=== PATIENT | female | born 1930 | race Caucasian/White ===

== ENCOUNTER 2017-10-21 12:04 | Emergency (ER) | payer MEDICARE, OTHER ==
[~2017-10-21] VITALS: Ht 154.9 cm; Wt 59.9 kg
--- OUTSIDE RECORDS SUMMARY | ~2017-10-21 | XMS | Clinical Summary ---
Demographics + + + | Address | [address] | | | [place] [address] | + + + | Home Phone | | + + + | Preferred Language | Unknown | + + + | Marital Status | | + + + | Samaritan Affiliation | Unknown | + + + | Race | White | + + + | Ethnic Group | Not or | + + + Author + + + | Author | [facility] | + + + | Organization | [facility] | + + + | Address | Unknown | + + + | Phone | Unavailable | + + + Support +------+ + + + +-------+ | Name | Relationship | Address | Phone | +------+ + + + +-------+ ECON | [address] | | [place] | [address] | +------+ + + + +-------+ Care Team Providers + +------+ + | Care Back Tender Fourdrinier Name | Role | Phone | + +------+ + PP | Unavailable | + +------+ + Source Comments UNIQUE is fully live on both [facility] Ambulatory and [facility] InPatient.[facility] Allergies + + + + + + [...] | + + + + + + Current Medications Not on file Active Problems Not on file Encounters +--------+ + + + + | Date | Type | Specialty | Care Team | Description | +--------+ + + + + | 07/25/ | Hospital | | | | | 2017 | Encounter | | | | +--------+ + + + + from Last 3 Months Social History + +-------+ +--------+------+ | Tobacco [...] on file | | + + + Plan of Treatment + + + + + | Health Maintenance | Due Date | Last Done | Comments | + + + + + | INFLUENZA VACCINE | | | | | (FLU SHOT) | 7 | | | + + + + + Results DERM PATHOLOGY (07/25/2017) + + + + | Component | Value | Ref Range | + + + + | DERMATOPATHOLOGY(WET | SOURCE OF SPECIMEN:A Rt. lateral cheek, | | | MNT) | shave biopsy CLINICAL | | | | DESCRIPTION:8.5 x 6 mm erythematous brown | | | | hyperkeratotic papule; r/o inflamed SK vs | | | | AKvs SCC. GROSS | | | | DESCRIPTION:Received in formalin is a | | | | specimen labeled Jb Hernandez:A: | | | | Specimen is labeled "R lateral cheek" and | | | | consists of an irregular shaveof papular | | | | patchy kvook-jhv-ebi-brown skin, [id number]. | | | | The surgical margin isinked blue; the | | | | tissue is trisected, and entirely submitted | | | | in cassette A1. MICROSCOPIC | | | | DESCRIPTION:There is an asymmetric and | | | | poorly circumscribed neoplasm characterized | | | | byparakeratosis overlying atypical | | | | keratinocytes at all levels of | | | | theepidermis. Most of the cells have | | | | pleomorphic, hyperchromatic nuclei, someare | | | | in mitosis, and most have eosinophilic | | | | cytoplasm. 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 NOTE: | | | | The squamous cell carcinoma in situ | | | | extends to the peripheral anddeep | | | | margins. [facility]:jb10 My | | | | electronic signature indicates that I have | | | | personally reviewed alldiagnostic slides, | | | | the gross and/or microscopic portion of | | | | thisreport and formulated the final | | | | diagnosis. Electronically signed | | | | by: Roscoe De Dios M.D.PathologistDate | | | | Completed: 07/28/2017 5:57PM | | | |Pathologist | | | |Date Completed: 07/28/2017 5:57PM | | + + + + + + + | Specimen | Performing Laboratory | + + + | | [facility] Luli CH5D [address] [facility] | | | [place] [address] | + + + from Last 3 Months
--- OUTSIDE RECORDS SUMMARY | ~2017-10-21 | XMS | Clinical Summary ---
Demographics + + + | Address | [address] | | | [place] [address] | + + + | Home Phone | | + + + | Preferred Language | Unknown | + + + | Marital Status | | + + + | Adventism Affiliation | Unknown | + + + | Race | White | + + + | Ethnic Group | Not or | + + + Author + + + | Author | [facility] | + + + | Organization | [facility] | + + + | Address | Unknown | + + + | Phone | Unavailable | + + + Support +------+ + + + +-------+ | Name | Relationship | Address | Phone | +------+ + + + +-------+ ECON | [address] | | [place] | [address] | +------+ + + + +-------+ Care Team Providers + +------+ + | Care Upsetter Name | Role | Phone | + +------+ + PP | Unavailable | + +------+ + Source Comments UNIQUE is fully live on both [facility] Ambulatory and [facility] InPatient.[facility] Allergies + + + + + + [...] shaveof papular | | | | patchy etzeo-ytx-yog-brown skin, [id number]. | | | | The surgical margin [...] peripheral anddeep | | | | margins. [facility]:jb10 My | | | | electronic [...] | | [facility] Luli CH5D [address] [facility] | | | [place] [address] | + + + from Last 3 Months
--- OUTSIDE RECORDS SUMMARY | ~2017-10-21 | XMS | Encounter Summary ---
Demographics + + + | Address | [address] | | | [place] [address] | + + + | Home Phone | | + + + | Preferred Language | Unknown | + + + | Marital Status | | + + + | Restorationist Affiliation | Unknown | + + + | Race | White | + + + | Ethnic Group | Not or | + + + Author + + + | Author | [facility] | + + + | Organization | [facility] | + + + | Address | Unknown | + + + | Phone | Unavailable | + + + Support +------+ + + + +-------+ | Name | Relationship | Address | Phone | +------+ + + + +-------+ ECON | [address] | | [place] | [address] | +------+ + + + +-------+ Care Team Providers + +------+ + | Care Air Operations Manager Name | Role | Phone | + +------+ + PCP | Unavailable | + +------+ + Encounter Details +--------+ + + + + | Date | Type | Department | Care Team | Description | +--------+ + + + + | 07/25/ | Hospital | Dermatopathology | | | | 2017 | Encounter | [address] | | | | | | Mail Code: CH16D | | | | | | [facility] | | | | | | and [facility], | | | | | | [place], [place] | | | | | | [address] | | | | | | [phone] | | | +--------+ + + + [...] on file | | + + + as of this encounter Plan of Treatment Not on fileas of this encounter Results DERM PATHOLOGY (07/25/2017) + [...] shaveof papular | | | | patchy baztn-lfd-znu-brown skin, [id number]. | | | | The surgical margin [...] peripheral anddeep | | | | margins. 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
--- OUTSIDE RECORDS SUMMARY | ~2017-10-21 | XMS | Encounter Summary ---
Demographics + + + | Address | [address] | | | [place] [address] | + + + | Home Phone | | + + + | Preferred Language | Unknown | + + + | Marital Status | | + + + | Rastafari Affiliation | Unknown | + + + | Race | White | + + + | Ethnic Group | Not or | + + + Author + + + | Author | [facility] | + + + | Organization | [facility] | + + + | Address | Unknown | + + + | Phone | Unavailable | + + + Support +------+ + + + +-------+ | Name | Relationship | Address | Phone | +------+ + + + +-------+ ECON | [address] | | [place] | [address] | +------+ + + + +-------+ Care Team Providers + +------+ + | Care Hem Inspector Name | Role | Phone | + +------+ + PCP | Unavailable | + +------+ + Encounter Details +--------+ + + + + | Date | Type | Department | Care Team | Description | +--------+ + + + + | 07/25/ | Hospital | Dermatopathology | | | | 2017 | Encounter | [address] | | | | | | Mail Code: CH16D | | | | | | [facility] | | | | | | and [facility], | | | | | | [place], [place] | | | | | | [address] | | | | | | [phone] | | | +--------+ + + + [...] shaveof papular | | | | patchy rjxcv-gve-ptv-brown skin, [id number]. | | | | The surgical margin [...] peripheral anddeep | | | | margins. 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
[~2017-10-21 12:04] MED LIST: ADVIL200 MG PO; ALBUTEROL SULF8.5 GM INH; ASPIRIN EC81 MG PO; AUGMENTIN 875-1 EACH PO; METOPROLOL SUCC25 MG PO; PREDNISONE20 MG PO; TRAMADOL HCL50 MG PO
== END 2017-10-21 12:41 | disposition home or self-care (01) ==
LOC: ED 12:04
DX: S00.83XA Contusion of other part of head, initial encounter (principal); I10 Essential (primary) hypertension; Z95.2 Presence of prosthetic heart valve; Z90.89 Acquired absence of other organs; Z90.49 Acquired absence of other specified parts of digestive tract; Z90.710 Acquired absence of both cervix and uterus; Z98.890 Other specified postprocedural states; Z88.8 Allergy status to other drugs, medicaments and biological substances; Z79.899 Other long term (current) drug therapy; W18.30XA Fall on same level, unspecified, initial encounter
CPT/HCPCS: 90471; 90715; 99282

== ENCOUNTER 2020-07-28 12:32 | Inpatient (IN) | payer MEDICARE, OTHER ==
[~2020-07-28] VITALS: Ht 154.9 cm; Wt 60.9 kg
--- OUTSIDE RECORDS SUMMARY | ~2020-07-28 | XMS | Encounter Summary ---
Demographics + + + | Address | [address] | | | [place] [address] | + + + | Home Phone | | + + + | Preferred Language | Unknown | + + + | Marital Status | | + + + | Latter Day Affiliation | Unknown | + + + | Race | White | + + + | Ethnic Group | Not or | + + + Author + + + | Author | [facility] | + + + | Organization | [facility] | + + + | Address | Unknown | + + + | Phone | Unavailable | + + + Support + + + + + | Name | Relationship | Address | Phone | + + + + + | Michael Ross | ECON | [address] | | | | | [place] | | | | | [address] | | + + + + + Care Team Providers + +------+ + | Care Crm Solution Architect Name | Role | Phone | + +------+ + PCP | Unavailable | + +------+ + Encounter Details +--------+ + + + + | Date | Type | Department | Care Team | Description | +--------+ + + + + | 07/23/ | Office | General Internal | Note, Outpatient | Progress Note | | 1996 | Visit-Trans | Medicine [address] | Clinic | | | | cribed | [address] | | | | | | Mailcode: L475 | | | | | | Outpatient Clinic | | | | | | [facility], [address] | | | | | | [place], [place] | | | | | | [address] | | | | | | [phone] | | | +--------+ + + + + Social History + +-------+ +--------+------+ | Tobacco Use | Types | Packs/Day | Years | Date | | | | | Used | | + +-------+ +--------+------+ | Never Assessed | | | | | + +-------+ +--------+------+ + + + | Sex Assigned at | Date Recorded | | | | + + + | Not on file | | + + + documented as of this encounter Progress Notes Interface, Machine Adjuster Helper In - 11/22/2006 3:04 AM [facility] DATE: 07/23/97 CHIEF COMPLAINT: Right carpal tunnel syndrome. HISTORY OF PRESENT ILLNESS: The patient is a 67-year-old woman who sustained a right distal radius fracture in April 1996. She underwent closed reduction and percutaneous pinning. She states that initially she had a marked deformity in her wrist, and since that time she has had diminished sensation in all of her fingers on her right hand. She complains of pain and numbness in her right hand. She states that this pain wakes her up, and then she shakes her hand to relieve it. PHYSICAL EXAMINATION: There is no marked deformity of the hand or wrist. She does have a positive Tinel's sign with paresthesias through the median nerve distribution. 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 ASSESSMENT AND PLAN: Right carpal tunnel syndrome. We are recommending right carpal tunnel release, and will place the patient on the surgical schedule. We have told her that she may cancel this prior to the date of her surgery. We have also offered a steroid injection, which the patient would prefer not to have at this time. Karmen Ayon M.D. Resident, Orthopedics /andrew A cc: Grover Rocha M.D., Hematology/Oncology FAX: [phone] Surgery Scheduling documented in this encounter Plan of Treatment Not on filedocumented as of this encounter Visit Diagnoses Not on filedocumented in this encounter"
--- OUTSIDE RECORDS SUMMARY | ~2020-07-28 | XMS | Encounter Summary ---
Demographics + + + | Address | [address] | | | [place] [address] | + + + | Home Phone | | + + + | Preferred Language | Unknown | + + + | Marital Status | | + + + | Islam Affiliation | Unknown | + + + | Race | White | + + + | Ethnic Group | Not or | + + + Author + + + | Author | [facility] | + + + | Organization | [facility] | + + + | Address | Unknown | + + + | Phone | Unavailable | + + + Support + + + + + | Name | Relationship | Address | Phone | + + + + + | Michael Ross | ECON | [address] | | | | | [place] | | | | | [address] | | + + + + + Care Team Providers + +------+ + | Care Freelance Court Stenographer Name | Role | Phone | + +------+ + PCP | Unavailable | + +------+ + Encounter Details +--------+ + + + + | Date | Type | Department | Care Team | Description | +--------+ + + + + | 01/09/ | Results | LAB CORE [address] | [facility], Faculty | | | 1998 | Only | [address] | [phone] | | | | | [place] | | | | | | [address] | | | | | | [phone] | | | +--------+ + + + [...] + + documented as of this encounter Plan of Treatment Not on filedocumented as of this encounter Procedures + +--------+ + + + | Procedure Name | Priori | Date/Time | Associated Diagnosis | Comments | | | ty | | | | + +--------+ + + + | SURGICAL PATHOLOGY | Routin | 01/09/1999 | | Results for this | | | e | | | procedure are in the | | | | | | results section. | + +--------+ + + + documented in this encounter Results SURGICAL PATHOLOGY (01/09/1999) + + + + + + | Component | Value | Ref Range | Performed | Pathologist | | | | | At | Signature | + + + + + + | SURGICAL | SOURCE OF SPECIMEN: SEE | | [facility] | | | PATHOLOGY | RESULTS | | DEPARTMENT | | | | Preliminary | | OF | | | | History:CLINICAL HISTORY | | PATHOLOGY | | | | Patient Age: 68 | | | | | | year old woman | | | | | | Patient History: | | | | | | Recurrent | | | | | | diverticulitis, now | | | | | | undergoing electivecolon | | | | | | resection. Suture cool | | | | | | proximal colon. | | | | | | GROSS DESCRIPTION | | | | | | Specimens Received: | | | | | | One in formalin | | | | | | #1 COLON: Received is a | | | | | | segment of colon | | | | | | measuring 17 x 5.5 x 4.0 | | | | | | cm.The colon has been | | | | | | previously | | | | | | longitudinally opened. | | | | | | Two linear staplelines | | | | | | are present on either | | | | | | end. A black suture is | | | | | | present on one | | | | | | end,designated as | | | | | | proximal. The staple | | | | | | line measures 3.0 cm | | | | | | proximally and3.5 cm | | | | | | distally. The specimen | | | | | | is serially | | | | | | longitudinally sectioned | | | | | | toreveal an area with | | | | | | multiple diverticula. | | | | | | This area involves 10 cm | | | | | | ofthe colon. This area | | | | | | is 6.5 cm from the | | | | | | proximal margin and 3.0 | | | | | | cm fromthe distal | | | | | | margin. The mucosal | | | | | | surface overlying both | | | | | | areas have normaltan | | | | | | folds without lesions or | | | | | | erythema. The bowel | | | | | | wall measures 0.7 cm | | | | | | inthickness on average | | | | | | with up to 2.0 cm in the | | | | | | area of the | | | | | | diverticula.None of the | | | | | | diverticula appear to be | | | | | | perforated. | | | | | | CASSETTE INDEX:A, | | | | | | proximal margin, | | | | | | transverse cut, ESB, | | | | | | distal margin, | | | | | | transverse cut, ESC-D, | | | | | | area with diverticula, | | | | | | RSE, normal-appearing | | | | | | colon, RSF, five | | | | | | suspected lymph nodes, | | | | | | RS All tissue | | | | | | sections taken are | | | | | | submitted for | | | | | | microscopic | | | | | | evaluation.WC/KO:tg | | | | | | FINAL | | | | | | DIAGNOSIS#1 COLON: | | | | | | COLON WITH | | | | | | DIVERTICULOSIS AND FIVE | | | | | | PERICOLIC LYMPH NODES | | | | | | WITH NO DIAGNOSTIC | | | | | | ABNORMALITY Case | | | | | | reviewed by: Amanda | | | | | | Sri KhalilCase | | | | | | staffed by: Jessica Stark | | | | | | SriT:01/13/99:dj | | | | | | My electronic signature | | | | | | indicates that I have | | | | | | personally reviewed | | | | | | alldiagnostic slides, | | | | | | the gross and/or | | | | | | microscopic portion of | | | | | | thisreport and | | | | | | formulated the final | | | | | | diagnosis. | | | | + + + + + + + + | Specimen | + + | Other | + + + + + + + | Performing | Address | City/State/Zipcode | Phone Number | | Organization | | | | + + + + + | [facility] | [address] | [place] [address] | | | PATHOLOGY | [address] | | | + + + + + documented in this encounter Visit Diagnoses Not on filedocumented in this encounter"
--- OUTSIDE RECORDS SUMMARY | ~2020-07-28 | XMS | Encounter Summary ---
Demographics + + + | Address | [address] | | | [place] [address] | + + + | Home Phone | | + + + | Preferred Language | Unknown | + + + | Marital Status | | + + + | Scientology Affiliation | Unknown | + + + | Race | White | + + + | Ethnic Group | Unknown | + + + Author + + + | Author | [facility] | | | and [place] | + + + | Organization | [facility] | | | and [place] | + + + | Address | Unknown | + + + | Phone | Unavailable | + + + Support + + + + + | Name | Relationship | Address | Phone | + + + + + | Stephanie Ross | ECON | [address] | | | | | [place] | | | | | [address] | | + + + + + Care Team Providers + +------+ + | Care Roller Die Cutting Machine Operator Name | Role | Phone | + +------+ + | Manuel Dent MD | PCP | | + +------+ + Reason for Visit + + + | Reason | Comments | + + + | Medication Refill | | + + + Encounter Details +--------+--------+ + + + | Date | Type | Department | Care Team | Description | +--------+--------+ + + + | 03/17/ | Refill | [facility] | Anai Jade | Medication Refill | | 2019 | | CARDIOLOGY JUN | [address] | | | | | [address] | [address] | | | | | [address] | [place] [address] | | | | | [place] | [phone] | | | | | [address] | | | | | | [phone] | | | +--------+--------+ + + + Social History + +-------+ +--------+------+ | Tobacco Use | Types | Packs/Day | Years | Date | | | | | Used | | + +-------+ +--------+------+ | Never Smoker | | | | | + +-------+ +--------+------+ + +---+---+---+ | Smokeless Tobacco: | | | | | Never Used | | | | + +---+---+---+ + + | Comments: extensive exposure to second hand smoke | + + + + + | Sex Assigned at | Date Recorded | | | | + + + | Not on file | | + + + documented as of this encounter Plan of Treatment Not on filedocumented as of this encounter Visit Diagnoses Not on filedocumented in this encounter"
--- OUTSIDE RECORDS SUMMARY | ~2020-07-28 | XMS | Encounter Summary ---
Demographics + + + | Address | [address] | | | [place] [address] | + + + | Home Phone | | + + + | Preferred Language | Unknown | + + + | Marital Status | | + + + | Presybeterian Affiliation | Unknown | + + + | Race | White | + + + | Ethnic Group | Unknown | + + + Author + + + | Author | [facility] | | | and [place] | + + + | Organization | [facility] | | | and [place] | + + + | Address | Unknown | + + + | Phone | Unavailable | + + + Support + + + + + | Name | Relationship | Address | Phone | + + + + + | Stephanie Ross | ECON | [address] | | | | | [place] | | | | | [address] | | + + + + + Care Team Providers + +------+ + | Care Dipper Fish Name | Role | Phone | + +------+ + PCP | Unavailable | + +------+ + Encounter Details +--------+ + + + + | Date | Type | Department | Care Team | Description | +--------+ + + + + | 03/14/ | [facility] | [facility] | Ernestina Love MD | Congestive Heart | | 2006 - | Encounter | [facility] | [address] | Failure ([facility]) | | | | CARE FLOOR [address] | [place] [address] | | | 03/27/ | | [address] | [phone] | | | 2005 | | [place], [place] | | | | | | [address] | | | | | | [phone] | | | +--------+ + + + [...] filedocumented as of this encounter Visit Diagnoses + + | Diagnosis | + + | Congestive heart failure, unspecified | + + documented in this encounter"
--- OUTSIDE RECORDS SUMMARY | ~2020-07-28 | XMS | Encounter Summary ---
Demographics + + + | Address | [address] | | | [place] [address] | + + + | Home Phone | | + + + | Preferred Language | Unknown | + + + | Marital Status | | + + + | Denominational Affiliation | Unknown | + + + | Race | White | + + + | Ethnic Group | Not or | + + + Author + + + | Author | [facility] | + + + | Organization | [facility] | + + + | Address | Unknown | + + + | Phone | Unavailable | + + + Support + + + + + | Name | Relationship | Address | Phone | + + + + + | Michael Ross | ECON | [address] | | | | | [place] | | | | | [address] | | + + + + + Care Team Providers + +------+ + | Care Change Consultant Name | Role | Phone | + +------+ + PCP | Unavailable | + +------+ + Encounter Details +--------+ + + + + | Date | Type | Department | Care Team | Description | +--------+ + + + + | 04/15/ | Office | [facility] | Note, Outpatient | Progress Note | | 1998 | Visit-Trans | MEDICINE | Clinic | | | | cribed | | | | +--------+ + + + [...] as of this encounter Progress Notes Interface, Library Media Specialist In - 09/24/2006 3:09 AM PSTCLINIC DATE: 04/15/1999 UROLOGY CLINIC PRE-PROCEDURE DIAGNOSIS: Urinary incontinence. POST-PROCEDURE DIAGNOSIS: Female stress urinary incontinence. 1. Normal uroflow. 2. Complete bladder emptying. 3. Normal detrusor sensation of filling and urge. 4. Normal detrusor compliance and capacity. 5. Stable detrusor during filling. 6. No vesicoureteral reflux seen. 7. Bladder neck funneling at rest. 8. Mild urethral hypermobility. 9. Intrinsic sphincter deficiency. 10. Normal voiding pressure. 11. Normal bladder outlet function during voiding. PROCEDURE: Calibrated uroflowmetry, calibrated cystometrography, pelvic floor electromyography, fluoroscopic cystourethrography, abdominal leak point pressure determination. INDICATIONS: Patient is a 69 year-old woman who came to our attention intraoperatively during a laparoscopically assisted pressure colectomy. At that time, an inadvertent bladder injury was recognized and we performed an open repair. She has recovered from the healing process and complains of stress urinary incontinence, which has actually been present for several years. She has a history of three vaginal deliveries and a hysterectomy. She does not report any previous bladder outlet surgery. FINDINGS: Patient has not been using any form of estrogen and the superficial vaginal tissues appear thinned, whitened and relatively atrophic. No overt fissures were identified. The urethral meatus appeared normal. The urethrovesical angle at rest was ten degrees positive, changing to 28 degrees positive with Valsalva effort. Patient had been able to void 74 ml with a maximum flow rate of 34 ml per second with residual less than 3 ml. During the initial filling, she reported the sensation of coolness upon filling almost immediately and the first distinct sensation of filling volume at 104 ml and an urge to void at 161 ml. Nonetheless, she was easily able to tolerate 400 ml with no significant intravesical pressure increase. When brought to an upright position, we could easily see mild descent of the pelvic floor associated with some funneling at the level of the bladder neck into the proximal urethra. Patient perceived this impending leakage. With Valsalva efforts, there was obvious opening of the bladder neck and proximal urethra with leakage. The abdominal leak point pressure was determined to be reproducible between 50 and 60 cm of water pressure. Voiding pressure fluctuated between 8 and 10 cm of water pressure maximum with normal opening of the bladder neck and proximal urethra and complete emptying. PROCEDURE: Patient was identified and brought to the Urodynamics Suite, where she was allowed to void in private into a calibrated uroflow commode. She was then placed in the table in the frogleg position and physical examination was completed before the genitalia were prepared with Betadine. A Q-tip test was performed and then the bladder was emptied with a #14 Burkinan urethral catheter. This was replaced with #7 Burkinan dual lumen urodynamics catheter. Electromyography pads were placed perianally and a rectal balloon catheter was inserted. After making appropriate connections and calibrations, the bladder was filled with Cystografin at a rate of 50 ml/minute. Findings are reported above. At 400 ml, the infusion was topped and the patient was brought to an upright position. Imaging was completed in AP and semioblique positions with and without Valsalva efforts. After recalibrating, the abdominal leak point pressure determination was carried out and finally a voiding pressure study was performed before all catheters and wires were removed. ASSESSMENT/PLAN: Patient tolerated this procedure well without any real complications. She will take Cipro, 250 mg, p.o., for two doses prophylactically. We recommended that she try an Estrace vaginal cream to prepare her tissues in the event that she chooses a surgical option. While she might be a candidate for (Contigen) injection, there is at least a mild degree of hypermobility and the patient's general health and condition may warrant a more permanent type of approach with a pubovaginal sling. I think this could be performed vaginally without any abdominal incision below the fascia. Sri Juarez/elmer cc: Mukund Del Rosario M.D. [facility] document ed in this encounter Plan of Treatment Not on filedocumented as of this encounter Visit Diagnoses Not on filedocumented in this encounter"
--- OUTSIDE RECORDS SUMMARY | ~2020-07-28 | XMS | Encounter Summary ---
Demographics + + + | Address | [address] | | | [place] [address] | + + + | Home Phone | | + + + | Preferred Language | Unknown | + + + | Marital Status | | + + + | Temple Affiliation | Unknown | + + + | Race | White | + + + | Ethnic Group | Unknown | + + + Author + + + | Author | [facility] | | | and [place] | + + + | Organization | [facility] | | | and [place] | + + + | Address | Unknown | + + + | Phone | Unavailable | + + + Support + + + + + | Name | Relationship | Address | Phone | + + + + + | Stephanie Ross | [place] | [address] | | | | | [place] | | | | | [address] | | + + + + + Care Team Providers + +------+ + | Care Managed Services Sales Consultant Name | Role | Phone | + +------+ + | Manuel Dent MD | PCP | | + +------+ + Encounter Details +--------+ + + + + | Date | Type | Department | Care Team | Description | +--------+ + + + + | 03/18/ | Imaging | [facility] | Provider, | | | 2019 | Exam | [facility] | MD Jenni [address] | | | | | IMAGING [address] | [address] | | | | | [address] | [place] [address] | | | | | [place] [address] | | | | | | [phone] | | | +--------+ + + + [...] | + +--------+ + + + | MRI LUMBAR SPINE WO | Routin | 11/30/2019 | | Results for this | | CONTRAST | e | 12:05 AM | | procedure are in the | | | | PST | | results section. | + +--------+ + + + documented in this encounter Results MRI Lumbar Spine wo Contrast (11/30/2019 12:05 AM PST) + + | Specimen | + + | | + + + + + | Narrative | Performed At | + + + | External films for comparison only | [facility] | | | | | No results will be in the chart. | | + + + + +---------+ + + | Performing | Address | City/State/Zipcode | Phone Number | | Organization | | | | + +---------+ + + | [facility] | | | | + +---------+ + + documented in this encounter Visit Diagnoses Not on filedocumented in this encounter"
--- OUTSIDE RECORDS SUMMARY | ~2020-07-28 | XMS | Encounter Summary ---
Demographics + + + | Address | [address] | | | [place] [address] | + + + | Home Phone | | + + + | Preferred Language | Unknown | + + + | Marital Status | | + + + | Orthodox Affiliation | Unknown | + + + | Race | White | + + + | Ethnic Group | Unknown | + + + Author + + + | Author | [facility] | | | and [place] | + + + | Organization | [facility] | | | and [place] | + + + | Address | Unknown | + + + | Phone | Unavailable | + + + Support + + + + + | Name | Relationship | Address | Phone | + + + + + | Stephanie Ross | [place] | [address] | | | | | [place] | | | | | [address] | | + + + + + Care Team Providers + +------+ + | Care Residential Concierge Name | Role | Phone | + [...] | | | [address] | [place] [address] | | | | | [place] [address] | | | | | | [phone] | | | +--------+ + + + [...] | + +--------+ + + + | XR HIP LEFT 2-3 | Routin | 11/26/2019 | | Results for this | | VIEWS | e | 12:00 AM | | procedure are in the | | | | PST | | results section. | + +--------+ + + + documented in this encounter Results XR Hip Left 2-3 Views (11/26/2019 12:00 AM PST) + + | Specimen | [...]
--- OUTSIDE RECORDS SUMMARY | ~2020-07-28 | XMS | Encounter Summary ---
Demographics + + + | Address | [address] | | | [place] [address] | + + + | Home Phone | | + + + | Preferred Language | Unknown | + + + | Marital Status | | + + + | Moravian Affiliation | Unknown | + + + | Race | White | + + + | Ethnic Group | Not or | + + + Author + + + | Author | [facility] | + + + | Organization | [facility] | + + + | Address | Unknown | + + + | Phone | Unavailable | + + + Support + + + + + | Name | Relationship | Address | Phone | + + + + + | Michael Ross | ECON | [address] | | | | | [place] | | | | | [address] | | + + + + + Care Team Providers + +------+ + | Care General Maintenance Helper Name | Role | Phone | + +------+ + PCP | Unavailable | + +------+ + Encounter Details +--------+ + + + + | Date | Type | Department | Care Team | Description | +--------+ + + + + | 08/29/ | Results | General Surgery | Mukund Del Rosario, | | | 1992 | Only | [address] | [address] | | | | | Loop Mailcode: | [address] | | | | | [id number] | [place], [place] | | | | | [address] | [address] | | | | | [place], [place] | [phone] | | | | | [address] | | | | | | [phone] | | | +--------+ + + + [...] | + +--------+ + + + | US AORTA | Routin | 09/22/1995 | | Results for this | | | e | 10:32 AM | | procedure are in the | | | | PST | | results section. | + +--------+ + + + | US ABDOMEN COMPLETE | Routin | 08/29/1995 | | Results for this | | | e | 4:09 PM | | procedure are in the | | | | PST | | results section. | + +--------+ + + + documented in this encounter Results US AORTA (09/22/1995 10:32 AM PST) + + + + + + | Component | Value | Ref Range | Performed | Pathologist | | | | | At | Signature | + + + + + + | US AORTA | Radiologist 1: ELLA, | | | | | | MATTHIAS Begum, | | | | | | MMandy-Radiologist 2: | | | | | | MATTHIAS JARAMILLO, | | | | | | M.DMACARENA, | | | | | | JB | | | | | | | | | | | | 23 42 | | | | | | 19LIMITED ABDOMINAL | | | | | | ULTRASOUND: | | | | | | [id number]: | | | | | | 09-22-95 CLINICAL | | | | | | INFORMATION: This is a | | | | | | 65-year-old female, who | | | | | | is recentlystatus post | | | | | | a laparoscopic | | | | | | cholecystectomy. At | | | | | | the time of | | | | | | operation,there was | | | | | | clinical suspicion of an | | | | | | abdominal aortic | | | | | | aneurysm. INDICATION: | | | | | | Rule out abdominal | | | | | | aortic aneurysm. | | | | | | FINDINGS: The | | | | | | abdominal aorta appears | | | | | | normal measuring 2.3 x | | | | | | 2.2 cmin the proximal | | | | | | aspect, 1.6 x 1.7 cm in | | | | | | the middle portion, and | | | | | | 1.2 x1.4 cm in | | | | | | transverse dimensions in | | | | | | the distal aspect. | | | | | | The right iliacartery | | | | | | measures approximately | | | | | | 8.9 mm in diameter. | | | | | | The left iliacartery | | | | | | measures 8.5 mm in | | | | | | diameter. There is a | | | | | | small amount | | | | | | ofcalcification along | | | | | | the vessel reyes. | | | | | | IMPRESSION: Normal | | | | | | appearing abdominal | | | | | | aorta and iliac arteries | | | | | | for age. There isno | | | | | | evidence for abdominal | | | | | | aortic aneurysm. END OF | | | | | | IMPRESSION: | | | | + + + + + + + + | Specimen | + + | | + + + +---------+ + + | Performing | Address | City/State/Zipcode | Phone Number | | Organization | | | | + +---------+ + + | [facility] DEPARTMENT OF | | | | | RADIOLOGY | | | | + +---------+ + + US ABDOMEN COMPLETE (08/29/1995 4:09 PM PST) + + + + + + | Component | Value | Ref Range | Performed | Pathologist | | | | | At | Signature | + + + + + + | US ABDOMEN | Radiologist 1: JULIETA, | | | | | COMPLETE | CAITLYN Rosales | | | | | | TK, | | | | | | JB | | | | | | | | | | | | [birth year] ABDOMINAL | | | | | | ULTRASOUND: 08/29/95 | | | | | | Dictated: 08/29/95 | | | | | | CLINICAL HISTORY: | | | | | | Abdominal pain. | | | | | | FINDINGS: The | | | | | | gallbladder is filled | | | | | | with sludge. It is | | | | | | notdistended. No wall | | | | | | thickening or | | | | | | pericholecystic fluid is | | | | | | seen. Thecommon bile | | | | | | duct measures 2 mm which | | | | | | is within normal | | | | | | limits. Theliver, | | | | | | pancreas, spleen, and | | | | | | kidneys are | | | | | | unremarkable. The | | | | | | rightkidney measures 9.9 | | | | | | cm and the left kidney | | | | | | 9.4 cm. A | | | | | | positivesonographic | | | | | | Dillard's sign was | | | | | | present. IMPRESSION: | | | | | | Sludge-filled | | | | | | gallbladder, without | | | | | | stones or biliary | | | | | | dilatation. END OF | | | | | | IMPRESSION: | | | | + + + + + + + + | Specimen | + + | | + + + +---------+ + + | Performing | Address | City/State/Zipcode | Phone Number | | Organization | | | | + +---------+ + + | [facility]MENT [facility] | | | | | RADIOLOGY | | | | + +---------+ + + documented in this encounter Visit Diagnoses Not on filedocumented in this encounter"
--- OUTSIDE RECORDS SUMMARY | ~2020-07-28 | XMS | Encounter Summary ---
Demographics + + + | Address | [address] | | | [place] [address] | + + + | Home Phone | | + + + | Preferred Language | Unknown | + + + | Marital Status | | + + + | Protestant Affiliation | Unknown | + + + | Race | White | + + + | Ethnic Group | Not or | + + + Author + + + | Author | [facility] | + + + | Organization | [facility] | + + + | Address | Unknown | + + + | Phone | Unavailable | + + + Support + + + + + | Name | Relationship | Address | Phone | + + + + + | Michael Ross | ECON | [address] | | | | | [place] | | | | | [address] | | + + + + + Care Team Providers + +------+ + | Care Pediatric Orthodontist Name | Role | Phone | + +------+ + PCP | Unavailable | + +------+ + Encounter Details +--------+ + + + + | Date | Type | Department | Care Team | Description | +--------+ + + + + | 01/08/ | Results | Registration [id number] | | | | 1998 | Only | [address] | | | | | | [place] Mailcode: [id number] | | | | | | [place], [place] | | | | | | [address] | | | | | | [phone] | | | +--------+ + + + [...] | + +--------+ + + + | CBC TESTS 2 | Routin | 01/12/1999 | | Results for this | | | e | 8:48 AM | | procedure are in the | | | | PDT | | results section. | + +--------+ + + + | CBC TESTS 2 | Routin | 01/11/1999 | | Results for this | | | e | 6:17 AM | | procedure are in the | | | | PDT | | results section. | + +--------+ + + + | CBC TESTS 2 | Routin | 01/10/1999 | | Results for this | | | e | 5:55 PM | | procedure are in the | | | | PST | | results section. | + +--------+ + + + | CHEMISTRY TESTS 4 | Routin | 01/10/1999 | | Results for this | | | e | 7:25 AM | | procedure are in the | | | | PST | | results section. | + +--------+ + + + | CBC TESTS 2 | Routin | 01/10/1999 | | Results for this | | | e | 7:25 AM | | procedure are in the | | | | PST | | results section. | + +--------+ + + + | CHEMISTRY TESTS 4 | Routin | 01/08/1999 | | Results for this | | | e | 2:15 PM | | procedure are in the | | | | PST | | results section. | + +--------+ + + + | CBC TESTS 2 | Routin | 01/08/1999 | | Results for this | | | e | 2:15 PM | | procedure are in the | | | | PST | | results section. | + +--------+ + + + | COAGULATION TESTS 2 | Routin | 01/08/1999 | | Results for this | | | e | 2:15 PM | | procedure are in the | | | | PST | | results section. | + +--------+ + + + documented in this encounter Results CBC TESTS 2 (01/12/1999 8:48 AM PDT) + + + + + + | Component | Value | Ref Range | Performed | Pathologist | | | | | At | Signature | + + + + + + | WHITE CELL | 7.2 | K/CU MM | | | | COUNT | | | | | + + + + + + | RED CELL | 3.27 (L) | M/CU MM | | | | COUNT | | | | | + + + + + + | HEMOGLOBIN | 10. (L) | GM/DL | | | + + + + + + | HEMATOCRIT | 29.6 (L) | % | | | + + + + + + | MCV | 90.6 | FL | | | + + + + + + | MCH | 30.5 | PG | | | + + + + + + | MCHC | 33.7 | GM/DL | | | + + + + + + | RDW | 12.5 | % | | | + + + + + + | PLATELET | 206. | K/CU MM | | | | COUNT | | | | | + + + + + + | MPV | 9.2 | FL | | | + + + + + + + + | Specimen | + + | | + + + + + + + | Performing | Address | City/State/Zipcode | Phone Number | | Organization | | | | + + + + + | [facility] | [address] | [place] [address] | | | PATHOLOGY | [address] | | | + + + + + CBC TESTS 2 (01/11/1999 6:17 AM PDT) + + + + + + | Component | Value | Ref Range | Performed | Pathologist | | | | | At | Signature | + + + + + + | WHITE CELL | 8.3 | K/CU MM | | | | COUNT | | | | | + + + + + + | RED CELL | 3.01 (L) | M/CU MM | | | | COUNT | | | | | + + + + + + | HEMOGLOBIN | 9.4 (L) | GM/DL | | | + + + + + + | HEMATOCRIT | 27. (L) | % | | | + + + + + + | MCV | 89.8 | FL | | | + + + + + + | MCH | 31.1 | PG | | | + + + + + + | MCHC | 34.6 (H) | GM/DL | | | + + + + + + | RDW | 12.6 | % | | | + + + + + + | PLATELET | 181. | K/CU MM | | | | COUNT | | | | | + + + + + + | MPV | 10.1 | FL | | | + + + + + + + + | Specimen | + + | | + + + + + + + | Performing | Address | City/State/Zipcode | Phone Number | | Organization | | | | + + + + + | [facility] | [address] | [place] [address] | | | PATHOLOGY | [address] | | | + + + + + CBC TESTS 2 (01/10/1999 5:55 PM PST) + + + + + + | Component | Value | Ref Range | Performed | Pathologist | | | | | At | Signature | + + + + + + | HEMATOCRIT | 27.3 (L) | % | | | + + + + + + + + | Specimen | + + | | + + + + + + + | Performing | Address | City/State/Zipcode | Phone Number | | Organization | | | | + + + + + | [facility] | [address] | [place] [address] | | | PATHOLOGY | [address] | | | + + + + + CBC TESTS 2 (01/10/1999 7:25 AM PST) + + + + + + | Component | Value | Ref Range | Performed | Pathologist | | | | | At | Signature | + + + + + + | WHITE CELL | 8.9 | K/CU MM | | | | COUNT | | | | | + + + + + + | RED CELL | 2.98 (L) | M/CU MM | | | | COUNT | | | | | + + + + + + | HEMOGLOBIN | 9.1 (L) | GM/DL | | | + + + + + + | HEMATOCRIT | 26.6 (L) | % | | | + + + + + + | MCV | 89.2 | [place] | | | + + + + + + | MCH | 30.7 | PG | | | + + + + + + | MCHC | 34.4 (H) | GM/DL | | | + + + + + + | RDW | 12.7 | % | | | + + + + + + | PLATELET | 192. | K/CU MM | | | | COUNT | | | | | + + + + + + | MPV | 9.8 | [place] | | | + + + + + + + + | Specimen | + + | | + + + + + + + | Performing | Address | City/State/Zipcode | Phone Number | | Organization | | | | + + + + + | [facility] | [address] | [place], [place] [address] | | | PATHOLOGY | [address] | | | + + + + + CHEMISTRY TESTS 4 (01/10/1999 7:25 AM PST) + + + + + + | Component | Value | Ref Range | Performed | Pathologist | | | | | At | Signature | + + + + + + | SODIUM, | 142. | mmol/l | | | | PLASMA | | | | | | (LAB) | | | | | + + + + + + | POTASSIUM, | 4.3 | mmol/l | | | | PLASMA | | | | | | (LAB) | | | | | + + + + + + | CHLORIDE, | 110. (H) | mmol/l | | | | PLASMA | | | | | | (LAB) | | | | | + + + + + + | TOTAL CO2, | 29. | mmol/l | | | | PLASMA | | | | | | (LAB) | | | | | + + + + + + | BUN, PLASMA | 6. | mg/dL | | | | (LAB) | | | | | + + + + + + | CREATININE | 0.8 | mg/dL | | | | PLASMA | | | | | | (LAB) | | | | | + + + + + + | GLUCOSE, | 104. | mg/dL | | | | PLASMA | | | | | | (LAB) | | | | | + + + + + + + + | Specimen | + + | | + + + + + + + | Performing | Address | City/State/Zipcode | Phone Number | | Organization | | | | + + + + + | [facility] | [address] | [place] [address] | | | PATHOLOGY | [address] | | | + + + + + COAGULATION TESTS 2 (01/08/1999 2:15 PM PST) + + + + + + | Component | Value | Ref Range | Performed | Pathologist | | | | | At | Signature | + + + + + + | INR | 1.01 | INR | | | + + + + + + | APTT | 32.8 | SECONDS | | | + + + + + + + + | Specimen | + + | | + + + + + + + | Performing | Address | City/State/Zipcode | Phone Number | | Organization | | | | + + + + + | [facility] | [address] | [place] [address] | | | PATHOLOGY | [address] | | | + + + + + CBC TESTS 2 (01/08/1999 2:15 PM PST) + + + + + + | Component | Value | Ref Range | Performed | Pathologist | | | | | At | Signature | + + + + + + | WHITE CELL | 7.4 | K/CU MM | | | | COUNT | | | | | + + + + + + | RED CELL | 3.88 | M/CU MM | | | | COUNT | | | | | + + + + + + | HEMOGLOBIN | 12. (L) | GM/DL | | | + + + + + + | HEMATOCRIT | 34.9 (L) | % | | | + + + + + + | MCV | 90. | FL | | | + + + + + + | MCH | 30.8 | PG | | | + + + + + + | MCHC | 34.2 (H) | GM/DL | | | + + + + + + | RDW | 12.8 | % | | | + + + + + + | PLATELET | 254. | K/CU MM | | | | COUNT | | | | | + + + + + + | MPV | 9.9 | FL | | | + + + + + + + + | Specimen | + + | | + + + + + + + | Performing | Address | City/State/Zipcode | Phone Number | | Organization | | | | + + + + + | [facility] | [address] | [place] [address] | | | PATHOLOGY | [address] | | | + + + + + CHEMISTRY TESTS 4 (01/08/1999 2:15 PM PST) + + + + + + | Component | Value | Ref Range | Performed | Pathologist | | | | | At | Signature | + + + + + + | SODIUM, | 143. | mmol/l | | | | PLASMA | | | | | | (LAB) | | | | | + + + + + + | POTASSIUM, | 4.3 | mmol/l | | | | PLASMA | | | | | | (LAB) | | | | | + + + + + + | CHLORIDE, | 102. | mmol/l | | | | PLASMA | | | | | | (LAB) | | | | | + + + + + + | TOTAL CO2, | 33. (H) | mmol/l | | | | PLASMA | | | | | | (LAB) | | | | | + + + + + + | BUN, PLASMA | 9. | mg/dL | | | | (LAB) | | | | | + + + + + + | CREATININE | 0.9 | mg/dL | | | | PLASMA | | | | | | (LAB) | | | | | + + + + + + | GLUCOSE, | 86. | mg/dL | | | | PLASMA | | | | | | (LAB) | | | | | + + + + + + + + | Specimen | + + | | + + + + + + + | Performing | Address | City/State/Zipcode | Phone Number | | Organization | | | | + + + + + | [facility] | [address] | [place] [address] | | | PATHOLOGY | [address] | | | + + + + + documented in this encounter Visit Diagnoses Not on filedocumented in this encounter"
--- OUTSIDE RECORDS SUMMARY | ~2020-07-28 | XMS | Encounter Summary ---
Demographics + + + | Address | [address] | | | [place] [address] | + + + | Home Phone [...] Author + + + | Author | [facility] | + + + | Organization | [facility] | + + + | Address | Unknown | + + + | Phone | Unavailable | + + + Support + + + + + | Name | Relationship | Address | Phone | + + + + + | Michael Ross | ECON | [address] | | | | | [place] | | | | | [address] | | + + + + + Care Team Providers + +------+ + | Care Typesetter Apprentice Name | Role | Phone | + [...] | | | | [id number] | [place], [place] | | | | | [address] | [address] | | | | | [place], [place] | [phone] | | | | | [address] | | | | | | [phone] | | | +--------+ + + + [...] ULTRASOUND: | | | | | | 05-18-79Paahtvhb: | | | | | | 09-22-95 [...] | | + +---------+ + + | [facility] DEPARTMENT OF | | | | | [...]
--- OUTSIDE RECORDS SUMMARY | ~2020-07-28 | XMS | Encounter Summary ---
Demographics + + + | Address | [address] | | | [place] [address] | + + + | Home Phone | | + + + | Preferred Language | Unknown | + + + | Marital Status | | + + + | Advent Affiliation | Unknown | + + + | Race | White | + + + | Ethnic Group | Not or | + + + Author + + + | Author | [facility] | + + + | Organization | [facility] | + + + | Address | Unknown | + + + | Phone | Unavailable | + + + Support + + + + + | Name | Relationship | Address | Phone | + + + + + | Michael Ross | ECON | [address] | | | | | [place] | | | | | [address] | | + + + + + Care Team Providers + +------+ + | Care Stonemason Name | Role | Phone | + +------+ + PCP | Unavailable | + +------+ + Encounter Details +--------+ + + + + | Date | Type | Department | Care Team | Description | +--------+ + + + + | 08/20/ | Results | Registration [id number] | | | | 1997 | Only | [address] | | | | | | [place] Mailcode: [id number] | | | | | | [place], [place] | | | | | | [address] | | | | | | [phone] | | | +--------+ + + + [...] | CHEMISTRY TESTS 4 | Routin | 11/05/1998 | | Results for this | | | e | 3:45 AM | | procedure are in the | | | | PST | | results section. | + +--------+ + + + | CHEMISTRY TESTS 4 | Routin | 10/16/1998 | | Results for this | | | e | 2:30 PM | | procedure are in the | | | | PST | | results section. | + +--------+ + + + | CBC TESTS 2 | Routin | 10/16/1998 | | Results for this | | | e | 2:30 PM | | procedure are in the | | | | PST | | results section. | + +--------+ + + + | CHEMISTRY TESTS 4 | Routin | 08/20/1998 | | Results for this | | | e | 2:42 PM | | procedure are in the | | | | PST | | results section. | + +--------+ + + + | CBC TESTS 2 | Routin | 08/20/1998 | | Results for this | | | e | 2:42 PM | | procedure are in the | | | | PST | | results section. | + +--------+ + + + | COAGULATION TESTS 2 | Routin | 08/20/1998 | | Results for this | | | e | 2:42 PM | | procedure are in the | | | | PST | | results section. | + +--------+ + + + documented in this encounter Results CHEMISTRY TESTS 4 (11/05/1998 3:45 AM PST) + + + + + + | Component | Value | Ref Range | Performed | Pathologist | | | | | At | Signature | + + + + + + | SODIUM, | 137. | mmol/l | | | | PLASMA | | | | | | (LAB) | | | | | + + + + + + | POTASSIUM, | 3.6 | mmol/l | | | | PLASMA | | | | | | (LAB) | | | | | + + + + + + | CHLORIDE, | 111. (H) | mmol/l | | | | PLASMA | | | | | | (LAB) | | | | | + + + + + + | TOTAL CO2, | 26. | mmol/l | | | | PLASMA | | | | | | (LAB) | | | | | + + + + + + | BUN, PLASMA | 15. | mg/dL | | | | (LAB) | | | | | + + + + + + | CREATININE | 0.7 | mg/dL | | | | PLASMA | | | | | | (LAB) | | | | | + + + + + + | GLUCOSE, | 98. | mg/dL | | | | PLASMA | | | | | | (LAB) | | | | | + + + + + + + + | Specimen | + + | | + + + + + + + | Performing | Address | City/State/Zipcode | Phone Number | | Organization | | | | + + + + + | [facility] | [address] | [place] [address] | | | PATHOLOGY | [address] | | | + + + + + CBC TESTS 2 (10/16/1998 2:30 PM PST) + + + + + + | Component | Value | Ref Range | Performed | Pathologist | | | | | At | Signature | + + + + + + | WHITE CELL | 7.6 | K/CU MM | | | | COUNT | | | | | + + + + + + | RED CELL | 3.68 (L) | M/CU MM | | | | COUNT | | | | | + + + + + + | HEMOGLOBIN | 11.8 (L) | GM/DL | | | + + + + + + | HEMATOCRIT | 34.3 (L) | % | | | + + + + + + | MCV | 93.2 | FL | | | + + + + + + | MCH | 32. | PG | | | + + + + + + | MCHC | 34.3 (H) | GM/DL | | | + + + + + + | RDW | 12.9 | % | | | + + + + + + | PLATELET | 267. | K/CU MM | | | | COUNT | | | | | + + + + + + | MPV | 9.3 | FL | | | + + + + + + | NEUTROPHIL | 53. | % | | | | % | | | | | + + + + + + | LYMPHOCYTE | 30. | % | | | | % | | | | | + + + + + + | MONOCYTE % | 11. (H) | % | | | + + + + + + | EOS % | 5. | % | | | + + + + + + | BASO % | 1. | % | | | + + + + + + | NEUTROPHIL | 4.1 | K/CU MM | | | | # | | | | | + + + + + + | LYMPHOCYTE | 2.3 | K/CU MM | | | | # | | | | | + + + + + + | MONOCYTE # | 0.8 (H) | K/CU MM | | | + + + + + + | EOS # | 0.4 | K/CU MM | | | + + + + + + | BASO # | 0. | K/CU MM | | | + + + + + + + + | Specimen | + + | | + + + + + + + | Performing | Address | City/State/Zipcode | Phone Number | | Organization | | | | + + + + + | [facility] | [address] | [place] [address] | | | PATHOLOGY | [address] | | | + + + + + CHEMISTRY TESTS 4 (10/16/1998 2:30 PM PST) + + + + + [...] + + + + | POTASSIUM, | 4.5 | mmol/l | | | | PLASMA | | | | | | (LAB) | | | | | + + + + + + | CHLORIDE, | 103. | mmol/l | | | | PLASMA | | | | | | (LAB) | | | | | + + + + + + | TOTAL CO2, | 29. | mmol/l | | | | PLASMA | | | | | | (LAB) | | | | | + + + + + + | BUN, PLASMA | 17. | mg/dL | | | | (LAB) | | | | | + + + + + + | CREATININE | 0.9 | mg/dL | | | | PLASMA | | | | | | (LAB) | | | | | + + + + + + | GLUCOSE, | 93. | mg/dL | | | | PLASMA | | | | | | (LAB) | | | | | + + + + + + | MAGNESIUM,P | 2. | mg/dL | | | | LASMA | | | | | + + + + + + + + | Specimen | + + | | + + + + + + + | Performing | Address | City/State/Zipcode | Phone Number | | Organization | | | | + + + + + | [facility] | [address] | [place] [address] | | | PATHOLOGY | [address] | | | + + + + + CHEMISTRY TESTS 4 (08/20/1998 2:42 PM PST) + + + + + [...] + + + + | POTASSIUM, | 4.7 | mmol/l | | | | PLASMA | | | | | | (LAB) | | | | | + + + + + + | CHLORIDE, | 106. | mmol/l | | | | PLASMA | | | | | | (LAB) | | | | | + + + + + + | TOTAL CO2, | 27. | mmol/l | | | | PLASMA | | | | | | (LAB) | | | | | + + + + + + | BUN, PLASMA | 12. | mg/dL | | | | (LAB) | | | | | + + + + + + | CREATININE | 0.9 | mg/dL | | | | PLASMA | | | | | | (LAB) | | | | | + + + + + + | GLUCOSE, | 87. | mg/dL | | | | PLASMA | | | | | | (LAB) | | | | | + + + + + + + + | Specimen | + + | | + + + + + + + | Performing | Address | City/State/Zipcode | Phone Number | | Organization | | | | + + + + + | [facility] | [address] | [place] [address] | | | PATHOLOGY | [address] | | | + + + + + COAGULATION TESTS 2 (08/20/1998 2:42 PM PST) + + + + + + | Component | Value | Ref Range | Performed | Pathologist | | | | | At | Signature | + + + + + + | INR | 1.01 | INR | | | + + + + + + | APTT | 32.2 | SECONDS | | | + + + + + + + + | Specimen | + + | | + + + + + + + | Performing | Address | City/State/Zipcode | Phone Number | | Organization | | | | + + + + + | [facility] | [address] | [place] [address] | | | PATHOLOGY | [address] | | | + + + + + CBC TESTS 2 (08/20/1998 2:42 PM PST) + + + + + + | Component | Value | Ref Range | Performed | Pathologist | | | | | At | Signature | + + + + + + | WHITE CELL | 7.8 | K/CU MM | | | | COUNT | | | | | + + + + + + | RED CELL | 4.01 | M/CU MM | | | | COUNT | | | | | + + + + + + | HEMOGLOBIN | 12.5 | GM/DL | | | + + + + + + | HEMATOCRIT | 36.9 (L) | % | | | + + + + + + | MCV | 92.1 | FL | | | + + + + + + | MCH | 31.1 | PG | | | + + + + + + | MCHC | 33.8 | GM/DL | | | + + + + + + | RDW | 13. | % | | | + + + + + + | PLATELET | 265. | K/CU MM | | | | [...] | + + + + + | [facility] | [address] | [place] [address] | | | PATHOLOGY | [address] | | | + + + + + documented in this encounter Visit Diagnoses Not on filedocumented in this encounter"
--- OUTSIDE RECORDS SUMMARY | ~2020-07-28 | XMS | Encounter Summary ---
Demographics + + + | Address | [address] | | | [place] [address] | + + + | Home Phone | | + + + | Preferred Language | Unknown | + + + | Marital Status | | + + + | Druze Affiliation | Unknown | + + + | Race | White | + + + | Ethnic Group | Not or | + + + Author + + + | Organization | Unknown | + + + | Address | Unknown | + + + | Phone | Unavailable | + + + Support + + + + + | Name | Relationship | Address | Phone | + + + + + | Michael Ross | [place] | [address] | | | | | [place] | | | | | [address] | | + + + + + Care Team Providers + +------+ + | Care Claims Specialist Name | Role | Phone | + +------+ + PCP | Unavailable | + +------+ + Encounter Details +--------+ + + + + | Date | Type | Department | Care Team | Description | +--------+ + + + + | 01/19/ | Results | | Nicholas Fleming | | | 1998 | Only | | [address] | | | | | | [address] | | | | | | [place] [address] | | | | | | [phone] | | | | | | | | +--------+ + + [...] | + +--------+ + + + | CYSTOGRAM, | Routin | 01/19/1999 | | Results for this | | RETROGRADE | e | 1:30 PM | | procedure are in the | | | | PDT | | results section. | + +--------+ + + + documented in this encounter Results CYSTOGRAM, RETROGRADE (01/19/1999 1:30 PM PDT) + + + + + + | Component | Value | Ref Range | Performed | Pathologist | | | | | At | Signature | + + + + + + | CYSTOGRAM, | Radiologist 1: ELLA, | | | | | RETROGRADE | MATTHIAS Begum | | | | | | M.DJustinoRETROGRADE | | | | | | CYSTOGRAM: 01/19/99. | | | | | | Dictated 02/07/99 | | | | | | COMPARISON: There are | | | | | | no prior studies | | | | | | available for | | | | | | comparison. FINDINGS: | | | | | | Fluoroscopy time is | | | | | | provided for Dr. Peterson | | | | | | Lonnie jangform the | | | | | | procedure. Initially, | | | | | | the patient's bladder is | | | | | | filledthrough an | | | | | | indwelling Caballero | | | | | | catheter with | | | | | | approximately 150 | | | | | | ccCystografin. The | | | | | | bladder is normal in | | | | | | configuration without | | | | | | evidenceof | | | | | | extravasation. The | | | | | | bladder is then emptied | | | | | | via the Caballero | | | | | | catheter.The bladder is | | | | | | then refilled through | | | | | | the indwelling Caballero | | | | | | catheter | | | | | | withapproximately 200 cc | | | | | | Cystografin, and the | | | | | | Caballero catheter is | | | | | | thenremoved by | | | | | | Lonnie. Again, the | | | | | | bladder is normal in | | | | | | configurationwithout | | | | | | evidence of | | | | | | extravasation. In the | | | | | | upright position, there | | | | | | isfunneling of the | | | | | | bladder neck and | | | | | | incontinence with | | | | | | Valsalva. Theurethra | | | | | | appears normal in course | | | | | | and caliber without | | | | | | filling defect | | | | | | onvoiding. No postvoid | | | | | | residual is | | | | | | demonstrated. | | | | | | IMPRESSION: 1. No | | | | | | evidence of | | | | | | extravasation. 2. | | | | | | Stress urinary | | | | | | incontinence. 3. | | | | | | Removal of the | | | | | | indwelling Caballero | | | | | | catheter by Nicholas Burgos | | | | | Sri Fleming A report | | | | | | will also be rendered by | | | | | | Dr. Fleming. END OF | | | | | [...]
--- OUTSIDE RECORDS SUMMARY | ~2020-07-28 | XMS | Encounter Summary ---
Demographics + + + | Address | [address] | | | [place] [address] | + + + | Home Phone | | + + + | Preferred Language | Unknown | + + + | Marital Status | | + + + | Buddhism Affiliation | Unknown | + + + | Race | White | + + + | Ethnic Group | Not or | + + + Author + + + | Author | [facility] | + + + | Organization | [facility] | + + + | Address | Unknown | + + + | Phone | Unavailable | + + + Support + + + + + | Name | Relationship | Address | Phone | + + + + + | Michael Ross | ECON | [address] | | | | | [place] | | | | | [address] | | + + + + + Care Team Providers + +------+ + | Care Pantograph Engraver Name | Role | Phone | + +------+ + PCP | Unavailable | + +------+ + Encounter Details +--------+ + + + + | Date | Type | Department | Care Team | Description | +--------+ + + + + | 01/09/ | Results | LAB CORE [address] | [facility], Faculty | | | 1998 | Only | [address] | [phone] | | | | | [place] | | | | | | [address] | | | | | | [phone] | | | +--------+ + + + [...] + + + + | [facility] | [address] | [place] [address] | | | PATHOLOGY | [address] | | | + + + + + documented in this encounter Visit Diagnoses Not on filedocumented in this encounter"
--- OUTSIDE RECORDS SUMMARY | ~2020-07-28 | XMS | Encounter Summary ---
Demographics + + + | Address | [address] | | | [place] [address] | + + + | Home Phone | | + + + | Preferred Language | Unknown | + + + | Marital Status | | + + + | Episcopalian Affiliation | Unknown | + + + | Race | White | + + + | Ethnic Group | Not or | + + + Author + + + | Author | [facility] | + + + | Organization | [facility] | + + + | Address | Unknown | + + + | Phone | Unavailable | + + + Support + + + + + | Name | Relationship | Address | Phone | + + + + + | Michael Ross | ECON | [address] | | | | | [place] | | | | | [address] | | + + + + + Care Team Providers + +------+ + | Care Public Works Manager Name | Role | Phone | + +------+ + PCP | Unavailable | + +------+ + Encounter Details +--------+ + + + + | Date | Type | Department | Care Team | Description | +--------+ + + + + | 07/12/ | Procedure - | UNKNOWN DEPARTMENT | Other, Faculty | EEG | | 1996 | | [address] [facility] | [phone] | | | | Transcribed | [address] | | | | | | [place], [place] | | | | | | [address] | | | +--------+ + + + [...] documented as of this encounter Progress Notes Other, Faculty - 07/12/1997 12:00 AM PDTAssociated Order(s): EEG ROUTINE CLINIC DATE: 07/11 Log #[id number] CLINICAL COMMENTS: This phgof-riqm-kbgq-old woman broke her distal radius in April 1996. She has had a burning sensation in glove distribution in the right hand since that time. The patient is an extremely poor historian and the extent of the sensory symptoms cannot be clarified. Neurologic examination is unremarkable. TEST DESCRIPTION: Motor nerve conduction studies demonstrate a mild delay in the right median distal motor latency as compared to the left distal motor latency. Amplitudes of the compound muscle action potentials in the median nerves bilaterally are preserved. The right ulnar motor nerve conduction studies and F- waves are normal. The right median F-wave is normal. Sensory nerve conduction studies in the median nerves are normal bilaterally, however, when one compared to the right median rjlw-wn-kibge sensory nerve conduction velocity with the right ulnar kocm-bc-fifog sensory nerve conduction study there is a significant slowing in the median nerve. Needle electromyography of the right abductor pollices brevis is normal. IMPRESSION: Mild right median mononeuropathy at the wrist consistent with the clinical diagnosis of mild right carpal tunnel syndrome. Dottie Guevara M.D. Clinical Instructor, Neurology Brianna Lubin M.D., F.R.C.P.C. Financing Analyst, Neurology FER/cf documented in this encou nter Plan of Treatment Not on filedocumented as of this encounter Procedures + +--------+ + + + | Procedure Name | Priori | Date/Time | Associated Diagnosis | Comments | | | ty | | | | + +--------+ + + + | EEG ROUTINE | | 07/12/1997 | | Results for this | | | | 12:00 AM | | procedure are in the | | | | PDT | | results section. | + +--------+ + + + documented in this encounter Results EEG ROUTINE (07/12/1997 12:00 AM PDT) + + | Procedure Note | + + | Other, Faculty - 07/12/1997 12:00 AM PDT CLINIC DATE: 07/11/97 | | Log #[id number] | | | | | | CLINICAL COMMENTS: | | | | This rfylc-fuco-mnyy-old woman broke her distal radius in April 1996. She | | has had a burning sensation in glove distribution in the right hand since | | that time. The patient is an extremely poor historian and the extent of the | | sensory symptoms cannot be clarified. Neurologic examination is | | unremarkable. | | | | | | TEST DESCRIPTION: | | | | Motor nerve conduction studies demonstrate a mild delay in the right median | | distal motor latency as compared to the left distal motor latency. | | Amplitudes of the compound muscle action potentials in the median nerves | | bilaterally are preserved. The right ulnar motor nerve conduction studies | | and F- waves are normal. The right median F-wave is normal. Sensory nerve | | conduction studies in the median nerves are normal bilaterally, however, | | when one compared to the right median gxjr-md-jzapt sensory nerve conduction | | velocity with the right ulnar mtup-ej-inyua sensory nerve conduction study | | there is a significant slowing in the median nerve. | | | | Needle electromyography of the right abductor pollices brevis is normal. | | | | | | IMPRESSION: | | | | Mild right median mononeuropathy at the wrist consistent with the clinical | | diagnosis of mild right carpal tunnel syndrome. | | | | | | | | | | Dottie Guevara M.D. | | Clinical Instructor, Neurology | | | | | | | | Brianna Lubin M.D., F.R.C.P.C. | | Financing Analyst, Neurology | | | | FER/cf | | | | | | | + + documented in this encounter Visit Diagnoses Not on filedocumented in this encounter"
--- OUTSIDE RECORDS SUMMARY | ~2020-07-28 | XMS | Encounter Summary ---
Demographics + + + | Address | [address] | | | [place] [address] | + + + | Home Phone | | + + + | Preferred Language | Unknown | + + + | Marital Status | | + + + | Rastafarian Affiliation | Unknown | + + + | Race | White | + + + | Ethnic Group | Not or | + + + Author + + + | Author | [facility] | + + + | Organization | [facility] | + + + | Address | Unknown | + + + | Phone | Unavailable | + + + Support + + + + + | Name | Relationship | Address | Phone | + + + + + | Michael Ross | ECON | [address] | | | | | [place] | | | | | [address] | | + + + + + Care Team Providers + +------+ + | Care Food Processing Chemist Name | Role | Phone | + [...] as of this encounter Progress Notes Interface, Senior Maintenance Technician In - 09/24/2006 3:09 AM PSTCLINIC DATE: [...] the bladder was emptied with a #14 Croatian urethral catheter. This was replaced with #7 Croatian dual lumen urodynamics catheter. Electromyography pads were [...]
--- OUTSIDE RECORDS SUMMARY | ~2020-07-28 | XMS | Encounter Summary ---
Demographics + + + | Address | [address] | | | [place] [address] | + + + | Home Phone | | + + + | Preferred Language | Unknown | + + + | Marital Status | | + + + | Zoroastrianism Affiliation | Unknown | + + + [...] + | Stephanie Ross | [place] | [address] | | | | | [place] | | | | | [address] | | + + + + + Care Team Providers + +------+ + | Care Step Finisher Name | Role | Phone | + +------+ + | Manuel Dent MD | PCP | | + +------+ + Encounter Details +--------+ + + + + | Date | Type | Department | Care Team | Description | +--------+ + + + + | 05/18/ | Orders Only | [facility] | Dmitriy Desai MD | | | 2010 | | [facility] | [address] | | | | | CLINICAL LABORATORY | [place], [place] | | | | | [address] | [id number] | | | | | [place], [place] | | | | | | [address] | | | | | | [phone] | | | +--------+ + + + [...] | + +--------+ + + + | MRSA NAAT | Routin | 05/18/2011 | | Results for this | | | e | 3:36 PM | | procedure are in the | | | | PDT | | results section. | + +--------+ + + + | MRSA NAAT | Routin | 05/18/2011 | | Results for this | | | e | 3:36 PM | | procedure are in the | | | | PDT | | results section. | + +--------+ + + + documented in this encounter Results MRSA NAAT (05/18/2011 3:36 PM PDT) + + | Specimen | + + | | + + + + + | Narrative | Performed At | + + + | [facility](NOSE) | EXTERNAL LAB | | Testing performed at [facility];[address] [place] [address];[place] [address] MRSA PCR | | | NEGATIVE Testing performed at | | | [address];[place] [address] | | + + + + +---------+ + + | Performing | Address | City/State/Zipcode | Phone Number | | Organization | | | | + +---------+ + + | EXTERNAL LAB | | | | + +---------+ + + MRSA NAAT (05/18/2011 3:36 PM PDT) + + | Specimen | + + | | + + + + + | Narrative | Performed At | + + + | [facility](NOSE) | EXTERNAL LAB | | Testing performed at [facility];[address] [place] [address];[place] [address] MRSA PCR | | | NEGATIVE Testing performed at | | | [address];[place] [address] | | + + + + +---------+ + + | Performing | Address | City/State/Zipcode | Phone Number | | Organization | | | | + +---------+ + + | EXTERNAL LAB | | | | + +---------+ + + documented in this encounter Visit Diagnoses Not on filedocumented in this encounter"
--- OUTSIDE RECORDS SUMMARY | ~2020-07-28 | XMS | Encounter Summary ---
Demographics + + + | Address | [address] | | | [place] [address] | + + + | Home Phone | | + + + | Preferred Language | Unknown | + + + | Marital Status | | + + + | Christianity Affiliation | Unknown | + + + | Race | White | + + + | Ethnic Group | Unknown | + + + Author + + + | Author | [facility] | | | and [place] | + + + | Organization | [facility] | | | and [place] | + + + | Address | Unknown | + + + | Phone | Unavailable | + + + Support + + + + + | Name | Relationship | Address | Phone | + + + + + | Stephanie Ross | [place] | [address] | | | | | [place] | | | | | [address] | | + + + + + Care Team Providers + +------+ + | Care Physiologist Name | Role | Phone | + [...] | | | [address] | [place] [address] | | | | | [place] [address] | | | | | | [phone] | | | +--------+ + + + [...]
--- OUTSIDE RECORDS SUMMARY | ~2020-07-28 | XMS | Encounter Summary ---
Demographics + + + | Address | [address] | | | [place] [address] | + + + | Home Phone | | + + + | Preferred Language | Unknown | + + + | Marital Status | | + + + | Orthodox Affiliation | Unknown | + + + | Race | White | + + + | Ethnic Group | Unknown | + + + Author + + + | Author | [facility] | | | and [place] | + + + | Organization | [facility] | | | and [place] | + + + | Address | Unknown | + + + | Phone | Unavailable | + + + Support + + + + + | Name | Relationship | Address | Phone | + + + + + | Stephanie Ross | ECON | [address] | | | | | [place] | | | | | [address] | | + + + + + Care Team Providers + +------+ + | Care Station Chief Name | Role | Phone | + +------+ + PCP | Unavailable | + +------+ + Encounter Details +--------+ + + + + | Date | Type | Department | Care Team | Description | +--------+ + + + + | 04/04/ | Hospital | [facility] | Conversion | Cor Athrscl-Uns | | 2006 | Encounter | CONVERSION [address] | [address], | Vessel | | | | [address] | Provider Unknown | | | | | [place], [place] | [phone] | | | | | [address] | | | | | | [phone] | | | +--------+ + + + [...] + | Diagnosis | + + | Coronary atherosclerosis of unspecified type of vessel, ouzinkie or graft | + + documented in this encounter"
--- OUTSIDE RECORDS SUMMARY | ~2020-07-28 | XMS | Encounter Summary ---
Demographics + + + | Address | [address] | | | [place] [address] | + + + | Home Phone | | + + + | Preferred Language | Unknown | + + + | Marital Status | | + + + | Mandaeism Affiliation | Unknown | + + + | Race | White | + + + | Ethnic Group | Unknown | + + + Author + + + | Author | [facility] | | | and [place] | + + + | Organization | [facility] | | | and [place] | + + + | Address | Unknown | + + + | Phone | Unavailable | + + + Support + + + + + | Name | Relationship | Address | Phone | + + + + + | Stephanie Ross | [place] | [address] | | | | | [place] | | | | | [address] | | + + + + + Care Team Providers + +------+ + | Care Insurance Coder Name | Role | Phone | + +------+ + | Manuel Dent MD | PCP | | + +------+ + Encounter Details +--------+ + + + + | Date | Type | Department | Care Team | Description | +--------+ + + + + | 05/25/ | Orders Only | [facility] | Aani Jade | Essential (primary) | | 2019 | | CARDIOLOGY JUN | [address] | hypertension; Mixed | | | | [address] | [address] | hyperlipidemia | | | | [address] | [place] [address] | | | | | [place], [place] | [phone] | | | | | [address] | | | | | | [phone] | | | +--------+ + + + + Social History + +-------+ +--------+------+ | Tobacco Use | Types | Packs/Day | Years | Date | | | | | Used | | + +-------+ +--------+------+ | Never Smoker | | | | | + +-------+ +--------+------+ + + | Comments: extensive exposure to [...] + | Diagnosis | + + | Essential (primary) hypertension Unspecified essential hypertension | + + | Mixed hyperlipidemia | + + documented in this encounter"
--- OUTSIDE RECORDS SUMMARY | ~2020-07-28 | XMS | Clinical Summary ---
Demographics + + + | Address | [address] | | | [place] [address] | + + + | Home Phone | | + + + | Preferred Language | Unknown | + + + | Marital Status | | + + + | Judaism Affiliation | Unknown | + + + | Race | White | + + + | Ethnic Group | Not or | + + + Author + + + | Author | [facility] | + + + | Organization | [facility] | + + + | Address | Unknown | + + + | Phone | Unavailable | + + + Support + + + + + | Name | Relationship | Address | Phone | + + + + + | Michael Ross | [place] | [address] | | | | | [place] | | | | | [address] | | + + + + + Care Team Providers + +------+ + | Care Owner Name | Role | Phone | + +------+ + PCP | Unavailable | + +------+ + Source Comments [facility] is fully live on both [facility] and [facility] Allergies + + + + + + | Active Allergy | Reactions | Severity | Noted | Comments | | | | | Date | | + + + + + + | Iodine | | | 08/31/19 | | | | | | 95 | | + + + + + + | Phenothiazines | | | 08/31/19 | | | | | | 95 | | + + + + + + Medications Not on file Active Problems Not on file Social History + +-------+ +--------+------+ | Tobacco [...] on file | | + + + Last Filed Vital Signs Not on file Plan of Treatment + + +-------+ + | Health Maintenance | Due Date | Last | Comments | | | | Done | | + + +-------+ + | Pneumococcal | | | | | vaccination ( | 7 | | | | - PPSV23) | | | | + + +-------+ + | Influenza (Flu) | | | | | vaccination (#1) | 0 | | | + + +-------+ + Results Not on filefrom Last 3 Months Insurance + +--------+ +--------+ + +--------+ | Payer | Benefi | Subscriber | Effect | Phone | Address | Type | | | t Plan | ID | martínez | | | | | | / | | Dates | | | | | | Group | | | | | | + +--------+ +--------+ + +--------+ | MEDICARE | MEDICA | [id number] | Effect | [phone] | [address] | Medica | | | RE A & | | [place] | [phone] | re | | | B | | for | | [place], [place] | | | | | | all | | [address] | | | | | | dates | | | | + +--------+ +--------+ + +--------+ | MODA MEDICARE | MODA | [id number] | Effect | [phone] | [address] | [address] | | SUPPLEMENT | MEDICA | | [place] | 4 | [id number] | | | | RE | | for | | [place], | | | | SUPPLE | | all | | [place] [address] | | | | MENT | | dates | | | | + +--------+ +--------+ + +--------+ + +--------+ +--------+ + + | Guarantor Name | Accoun | Relation to | Date | Phone | Billing Address | | | t Type | Patient | of | | | | | | | | | | + +--------+ +--------+ + + | Yvonne Laguerre | Person | Self | [birth year] | [address] | | | al/Fam | | 1930 | [phone] | [place] [address] | | | luis | | | 3 (Home) | | + +--------+ +--------+ + +"
--- OUTSIDE RECORDS SUMMARY | ~2020-07-28 | XMS | Encounter Summary ---
Demographics + + + | Address | [address] | | | [place] [address] | + + + | Home Phone | | + + + | Preferred Language | Unknown | + + + | Marital Status | | + + + | Nondenominational Affiliation | Unknown | + + + [...] + | Michael Ross | ECON | [address] | | | | | [place] | | | | | [address] | | + + + + + Care Team Providers + +------+ + | Care Cork Grinder Name | Role | Phone | + +------+ + PCP | Unavailable | + +------+ + Encounter Details +--------+ + + + + | Date | Type | Department | Care Team | Description | +--------+ + + + + | 09/22/ | Office | General Internal | Note, Outpatient | Progress Note | | 1994 | Visit-Trans | Medicine [address] | Clinic | | | | cribed | [address] | | | | | | Mailcode: L475 | | | | | | Outpatient Clinic | | | | | | [facility], [address] | | | | | | [place], [place] | | | | | | [address] | | | | | | [phone] | | | +--------+ + + + [...] as of this encounter Progress Notes Interface, Small Engine Trainer In - 01/10/2007 5:06 AM PDT CLINIC DATE: 09/22/95 GENERAL SURGERY CLINIC The patient is a 65-year-old white female status post laparoscopic cholecystectomy on August 31, 1995, currently here today for a follow-up visit. In addition, during her admission for the cholecystectomy, on intraoperative examination, she was felt to have a questionable aortic aneurysm. However, the patient appears to be doing nicely at this time. There are no complaints of any epigastric pain or any abdominal tenderness. Her appetite has been great. She has no complaints of nausea or vomiting. In addition, she also had an aortic ultrasound today prior to clinical visit where clinical findings reveal normal aorta and normal iliac vessels. There was no evidence of aneurysm. EXAMINATION: The patient appears to be a pleasant female in no acute distress. LUNGS: Clear to auscultation. CARDIOVASCULAR: Regular rate and rhythm. ABDOMEN: Soft and nontender with good bowel sounds. Her incision wound appears to be healing nicely with no evidence of infections, hematoma or any erythema. ASSESSMENT AND PLAN: The patient is status post laparoscopic cholecystectomy. She is recovering nicely. No indications of infection and no indications of any aneurysm. The patient is to continue to resume normal activities and normal management of care. The patient may return to clinic on a p.r.n. basis if necessary at this time. Tena Graham M.D. Child Day Care Teacher, Surgery Mukund Del Rosario M.D. Director [facility], General Surgery KCV: C: 11/15/95 [facility] 11/18/95 ceg cc: LYLE JOSHI M.D. BONE MARROW TRANSPLANT documented in this encounter Plan of Treatment Not on filedocumented as of this encounter Visit Diagnoses Not on filedocumented in this encounter"
--- OUTSIDE RECORDS SUMMARY | ~2020-07-28 | XMS | Encounter Summary ---
Demographics + + + | Address | [address] | | | [place] [address] | + + + | Home Phone | | + + + | Preferred Language | Unknown | + + + | Marital Status | | + + + | Catholic Affiliation | Unknown | + + + | Race | White | + + + | Ethnic Group | Unknown | + + + Author + + + | Author | [facility] | | | and [place] | + + + | Organization | [facility] | | | and [place] | + + + | Address | Unknown | + + + | Phone | Unavailable | + + + Support + + + + + | Name | Relationship | Address | Phone | + + + + + | Stephanie Ross | ECON | [address] | | | | | [place] | | | | | [address] | | + + + + + Care Team Providers + +------+ + | Care Security Sme Name | Role | Phone | + [...] Description | +--------+--------+ + + + | 12/21/ | Refill | [facility] | Anai Jade | Medication Refill | | 2019 | | CARDIOLOGY JUN | [address] | | | | | [address] | [address] | | | | | [address] | [place] [address] | | | | | [place] | [phone] | | | | | [address] | | | | | | [phone] | | | +--------+--------+ + + + [...]
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
--- OUTSIDE RECORDS SUMMARY | ~2020-07-28 | XMS | Encounter Summary ---
Demographics + + + | Address | [address] | | | [place] [address] | + + + | Home Phone | | + + + | Preferred Language | Unknown | + + + | Marital Status | | + + + | Sabianism Affiliation | Unknown | + + + [...] + | Michael Ross | ECON | [address] | | | | | [place] | | | | | [address] | | + + + + + Care Team Providers + +------+ + | Care Transportation Maintenance Operator Name | Role | Phone | + +------+ + PCP | Unavailable | + +------+ + Encounter Details +--------+ + + + + | Date | Type | Department | Care Team | Description | +--------+ + + + + | 08/31/ | Results | LAB CORE [address] | Rose, Faculty | | | 1994 | Only | [address] | [phone] | | | | | [place] | | | | | | [address] | | | | | | [phone] | | | +--------+ + + + [...] + | SURGICAL PATHOLOGY | Routin | 08/31/1995 | | Results for this | | | e | | | procedure are in the | | | | | | results section. | + +--------+ + + + documented in this encounter Results SURGICAL PATHOLOGY (08/31/1995) + + + + + + | [...] | OF | | | | History:CLINICAL | | PATHOLOGY | | | | HISTORYThe patient is a | | | | | | 65 year old female with | | | | | | biliary colic. | | | | | | GROSS DESCRIPTIONA | | | | | | single specimen is | | | | | | received in formalin | | | | | | labeled gallbladder. | | | | | | Itconsists of a | | | | | | gallbladder measuring 6 | | | | | | x 2.5 x 2.2 cm. The | | | | | | externalsurface is | | | | | | partially covered by a | | | | | | smooth and glistening | | | | | | membrane. Thewall is | | | | | | thickened and measures | | | | | | up to 0.5 cm. The | | | | | | lumen contains luciddark | | | | | | green bile and multiple | | | | | | small round bright | | | | | | yellow-gold stones, | | | | | | thelargest measuring 0.2 | | | | | | cm. in diameter. The | | | | | | mucosa shows | | | | | | brightyellow-gold | | | | | | discolorations and an | | | | | | irregular surface. | | | | | | Representativesections | | | | | | are submitted in a | | | | | | single cassette. 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
--- OUTSIDE RECORDS SUMMARY | ~2020-07-28 | XMS | Encounter Summary ---
Demographics + + + | Address | [address] | | | [place] [address] | + + + | Home Phone | | + + + | Preferred Language | Unknown | + + + | Marital Status | | + + + | Yazidism Affiliation | Unknown | + + + [...] + | Michael Ross | [place] | [address] | | | | | [place] | | | | | [address] | | + + + + + Care Team Providers + +------+ + | Care Digital Account Director Name | Role | Phone | + +------+ + PCP | Unavailable | + +------+ + Encounter Details +--------+ + + + + | Date | Type | Department | Care Team | Description | +--------+ + + + + | 09/01/ | Results | | Other, Faculty | | | 1997 | Only | | [phone] | | +--------+ + + + + [...] | + +--------+ + + + | BARIUM ENEMA, W/AIR | Routin | 09/01/1998 | | Results for this | | CONTRAST | e | 3:52 PM | | procedure are in the | | | | PST | | results section. | + +--------+ + + + documented in this encounter Results BARIUM ENEMA, W/AIR CONTRAST (09/01/1998 3:52 PM PST) + + + + + + | Component | Value | Ref Range | Performed | Pathologist | | | | | At | Signature | + + + + + + | BARIUM | Radiologist 1: | | | | | ENEMA, | GARRETT MAX, | | | | | W/AIR | M.D.-Radiologist 2: | | | | | CONTRAST | SHIN KIM, | | | | | | M.D.BARIUM ENEMA WITH | | | | | | AIR CONTRAST: 09/01/98 | | | | | | Dictated: 09/01/98 | | | | | | HISTORY: Patient is a | | | | | | 68-year-old female with | | | | | | recurring left | | | | | | lowerquadrant pain for | | | | | | several years. In the | | | | | | past, she has been | | | | | | treatedmultiple times | | | | | | for diverticulitis with | | | | | | antibiotics. TECHNIQUE | | | | | | AND FINDINGS: Digital | | | | | | rectal examination is | | | | | | without mass orstool in | | | | | | the rectal vault. An | | | | | | initial abdominal flat | | | | | | plate, has a | | | | | | fewscattered phleboliths | | | | | | in the left pelvis, | | | | | | surgical clips in the | | | | | | rightupper quadrant from | | | | | | a presumed | | | | | | cholecystectomy, and a | | | | | | non-obstructivebowel gas | | | | | | pattern. On the barium | | | | | | air contrast images, | | | | | | there are multiple | | | | | | diverticuli,predominantl | | | | | | y in the distal | | | | | | descending colon and | | | | | | sigmoid colon. | | | | | | Thereare also a few | | | | | | diverticuli in the | | | | | | distal ascending colon. | | | | | | There is nolumen | | | | | | narrowing, fistula, or | | | | | | mass effect. There is | | | | | | contrast extendinginto | | | | | | the ileum. IMPRESSION: | | | | | | Diverticulosis, | | | | | | predominantly in the | | | | | | distal descending and | | | | | | sigmoidcolon. There | | | | | | are also a few | | | | | | diverticuli in the | | | | | | ascending colon. END | | | | | | OF IMPRESSION: | | | | + + + + + + + + | Specimen | + + | | + + + + + | Narrative | Performed At | + + + | Ordered by DAISY MEDINA M.D. | | + + + + +---------+ + + | Performing | Address | City/State/Zipcode | Phone Number | | Organization | | | | + +---------+ + + | [facility] DEPARTMENT OF | | | | | RADIOLOGY | | | | + +---------+ + + documented in this encounter Visit Diagnoses Not on filedocumented in this encounter"
--- OUTSIDE RECORDS SUMMARY | ~2020-07-28 | XMS | Encounter Summary ---
Demographics + + + | Address | [address] | | | [place] [address] | + + + | Home Phone | | + + + | Preferred Language | Unknown | + + + | Marital Status | | + + + | Evangelical Affiliation | Unknown | + + + [...] + | Michael Ross | [place] | [address] | | | | | [place] | | | | | [address] | | + + + + + Care Team Providers + +------+ + | Care Accounts Payable Accountant Name | Role | Phone | + +------+ + PCP | Unavailable | + +------+ + Encounter Details +--------+ + + + + | Date | Type | Department | Care Team | Description | +--------+ + + + + | 01/09/ | Procedure - | | Record, Operation | Operative Report | | 1999 | | | | | | | Transcribed | | | | +--------+ + + [...] + + documented as of this encounter Procedure Notes Interface, Manager Quantitative In - 10/01/2006 5:[address] [address] [facility] OPERATION RECORD Med Rec No.: [id number] Date: 01/09/1999 Name: Yvonne Laguerre ATTENDING PHYSICIAN: Nicholas Fleming M.D. BREAKFAST SUPERVISOR(S): Sri Goodwin M.D. PREOPERATIVE DIAGNOSIS(ES): Colon cancer. POSTOPERATIVE DIAGNOSIS(ES): Colon cancer. OPERATION(S) PERFORMED: Repair of bladder perforation. ANESTHESIA: Not dictated. SPECIMEN(S) REMOVED: Not dictated. INDICATIONS: Ms. Laguerre is a 68-year-old woman who underwent a laparoscopic left hemicolectomy. During the procedure a Bovie injury to the bladder resulted in an intraperitoneal bladder perforation. The urology team was consulted to repair. FINDINGS: The patient had a 1 cm intraperitoneal perforation of the dome of the bladder. This was repaired in a two-layer closure. At the conclusion of the closure it was watertight. PROCEDURE: The patient's laparoscopic procedure had been completed. Next, her perineum was prepped and draped sterilely and the 19 Tongan Jeff rigid cystoscope was introduced through the urethra into the bladder. A thorough cystourethroscopy was performed and revealed a 1 cm perforation at the dome of the bladder. We removed the cystoscope and opened the Pfannenstiel incision that had been made to remove the colon. This was carried down through the subcutaneous tissue and fascia, and the previous closure sutures removed. We were able to easily identify and grasp the bladder with a Missy clamp. Once it was elevated into the wound we easily identified the perforation. This was closed in a two-layer closure with closing the mucosa with Biosyn and closing the detrusor and adventitia with 4-0 Biosyn. Once this was closed we then cystoscoped the patient again using the 19 Tongan Jeff rigid cystoscope. When the bladder was distended there was no leakage from the perforation site. We therefore elected to close the wound. The erectus was approximated with 0 PDS. Next, the anterior sheath was closed with a running 0 PDS. Lastly, the wound was irrigated and the Florina's fascia was closed with 3-0 Vicryl and the skin was closed with a running subcuticular 4-0 Vicryl. A 16 Tongan Caballero catheter was left in place and the wound was steri-stripped and sterile dressing was applied. At the conclusion, estimated blood loss was less than 50 cc. There were no complications. Wade Batista M.D. Resident, Urology Nicholas Fleming M.D. Drafter Directional Survey, Surgery Division of Urology [id number] CC: BRANDYN VOGEL MD [address] [place] [address] [address] [place] [address] LYLE JOSHI MD [address] [place] [address] [place] [id number] signed by Interface, Manager Quantitative In at 10/01/2006 5:11 AM PSTInterface, Manager Quantitative In - 10/01/2006 5:[address] [id number] [facility] OPERATION RECORD Med Rec No.: [id number] Date: 01/09/1999 Name: Yvonne Laguerre ATTENDING SURGEON: Sri Spears M.D. BREAKFAST SUPERVISOR: Sri Pascal M.D. PREOPERATIVE DIAGNOSIS(ES): Chronic left sided diverticulosis and diverticulitis. POSTOPERATIVE DIAGNOSIS(ES): Chronic left sided diverticulosis and diverticulitis. OPERATIONS PERFORMED: Laparoscopic left hemicolectomy. ANESTHESIA: General and local. ESTIMATED BLOOD LOSS: Minimal. SPECIMEN(S) REMOVED: Left colon. COMPLICATIONS: Bladder perforation which was repaired by Urology. Please see their note for details. PROCEDURE: The patient was brought to the Operating Room, identified and placed in a supine placed. Appropriate lines are placed. General anesthesia was achieved. She is put in stirrups with care being taken not to injure her legs. Urology then placed a left sided stent to provide a marker for us during the case to avoid ureteral injuries. Abdomen and perineum were then prepped and draped in the usual manner. Prior to all skin incisions, the skin was injected with 0.5 percent Marcaine without epinephrine. A periumbilical incision was made, and then using a Veress needle, the abdomen was insufflated to 1.5 millimeters of mercury pressure. Then a right lower quadrant 12 millimeter port was placed. A left lower quadrant 12 millimeter port was placed, and a left upper quadrant 12 millimeter port was placed, as well as a suprapubic 12 millimeter port. Using these ports, the line of Toldt was taken down. The ureter was easily identified, both by visualization as well as palpation. The majority of her diverticular disease appeared to be in the sigmoid colon and was adherent down into the pelvis. Using a combination of cautery and short resection, this was taken down, with care being taken not to injure the ureter. Once it was mobilized up from the rectum, the rectum was cleared off on its proximal portion, where it was found to be normal in character. Once a window was made through the mesentery on this side, a 60 millimeter GI stapler was inserted and fired across the colon. The colon was then brought towards the patient's head, and the mesentery was taken down using the endovascular stapler and harmonics. Once we felt we had this mobilized enough, a mini Pfannenstiel incision was made through the 12 millimeter trocar site and the suprapubic area, and the colon was delivered through this wound. It was delivered to the point where we felt we were up to a normal colon, and at this point the fat was cleaned off of it and a TA stapler was placed across it and the specimen was then sent off the pathology. A sizer was then inserted into the colon 28 Tongan fit, and we then inserted the 28 EEA stapler anvil and then sutured down our purse string and the mucosa around it. We dropped it back into the abdomen. We introduced the EA stapler from the rectum and pushed it through the rectal wall. After we identified the rectal staple line, we then pulled off the cap and inserted our anvil onto the EA stapler, with care being taken not to twist the bowel. Once the bowel was cinched down and stapled, the EA stapler was removed, the abdomen was filled with water, and the rectum was insulated. There was no evidence of a leak. There was also no evidence of significant tension on the anastomosis. However, at this point anesthesia noted that the Caballero bag was inflated with air and we subsequently rechecked the ureter which was found to be pristine. However, the only concern then was that the Pfannenstiel incision which we had repaired at this point, using an 0 Maxon must be the source of this new material. Urology was called back into consult and they did a cystoscopy and found a small perforation on the dome of the bladder, which they repaired through the suprapubic incision. Please see their note for details. All of the other wounds were closed with 4-0 Vicryl in the skin and an 0 Vicryl in the fascial layers, and then Steri-Stripped. The patient tolerated the procedure well and without complication, except for the bladder perforation, which was corrected by Urology. She was then transferred to the Post Anesthesia Care Unit in stable condition. Hector Ovalle M.D. Mukund Del Rosario M.D. Jessica Nolasco M.D. BM:[id number] CC: BRANDYN VOGEL MD [address] [place] [address] [address] [place] [address] LYLE JOSHI MD [address] [place] [address] [place] [id number] signed by Interface, Manager Quantitative In at 10/01/2006 5:11 AM PSTInterface, Manager Quantitative In - 10/01/2006 5:11 AM PST [address] [address] [facility] OPERATION RECORD Med Rec No.: [id number] Date: 01/09/1999 Name: Yvonne Laguerre ATTENDING SURGEON:Nicholas Fleming M.D. Drafter Directional Survey, Surgery Division of Urology BREAKFAST SUPERVISOR(S): Alan Flanagan M.D. Resident, Urology PREOPERATIVE DIAGNOSIS(ES): 1. Left colon diverticular disease. 2. Need for preoperative ureteral stenting. POSTOPERATIVE DIAGNOSIS(ES): 1. Left colon diverticular disease. 2. Need for preoperative ureteral stenting. 3. OPERATIONS PERFORMED: 1. Rigid cystourethroscopy. 2. Placement of left ureteral stent. SPECIMEN(S) REMOVED: None. ANESTHESIA: General endotracheal. INDICATIONS: This is a 68-year-old woman with long-standing left colon diverticular disease of apparent benign origin. She presents at this time to undergo laparoscopic hemicolectomy. The Urology Service has been asked by the General Surgery Service to place a left ureteral stent preoperatively. FINDINGS: 1. The bladder appeared normal throughout without evidence of tumors, stones, foreign bodies, or suspicious areas. There was a moderate amount of squamous metaplasia present over the trigone. 2. A 6 Tongan x 70-cm open-end Mendon catheter was placed into the left ureteral without difficulty or resistance. This was carefully secured to the Caballero cathter at the conclusion of the procedure. PROCEDURE: After obtaining informed consent, the patient was taken to the Operating Suite where she was placed on the operating table in the supine position. A general endotracheal anesthetic was induced and maintained throughout this portion of the procedure without difficulty. The patient was placed in the low lithotomy position and the genitalia prepped and draped in a sterile fashion. A 17.5 cystoscope sheath was advanced over an obturator into the bladder. The obturator was removed and the 25-degree lens introduced through the sheath. Findings throughout the bladder were as described above. A 6 Tongan by 70 cm open-end Mendon ureteral catheter was advanced through the cystoscope and into the left ureteral orifice. This was then advanced into the proximal left collecting system without resistance or difficulty. With the ureteral stent in place, the cystoscope was withdrawn. A #18 Tongan 5 cc Caballero catheter was then advanced through the urethra and into the bladder. A total of 10 cc of sterile water was instilled into the catheter balloon and the catheter allowed to drain to gravity. The ureteral stent was then multiply secured to the Caballero catheter with 2-0 silk suture. A Caballero catheter was placed to gravity. The patient was then undraped and repositioned for the laparoscopic portion of the procedure, which will be performed by the General Surgery Service. Details of this portion of the procedure will be dictated in a separate operative report. The patient appeared to tolerate this portion of the procedure well, without any complications or difficulty. Estimated blood loss is less than [address] Nicholas Fleming was present for and actually participated in the entire procedure. Alan Flanagan M.D. Nicholas Fleming M.D. JJ:xt2 CC: BRANDYN VOGEL MD [address] [place] [address] LYLE JOSHI MD [address] [facility] [place] [id number] signed by Interface, Manager Quantitative In at 10/01/2006 5:11 AM PSTdocumented in this encounter Plan of Treatment Not on filedocumented as of this encounter Procedures + +--------+ + + + | Procedure Name | Priori | Date/Time | Associated Diagnosis | Comments | | | ty | | | | + +--------+ + + + | OPERATION RECORD | | 01/09/1999 | | Results for this | | | | | | procedure are in the | | | | | | results section. | + +--------+ + + + documented in this encounter Results OPERATION RECORD (01/09/1999) + + | Transcriptions | + + | Interface, Manager Quantitative In - 10/01/2006 5:11 AM PST | | [address] | | [place], [place] [address] | | [facility] Rec [facility] | | [id number] Date: 01/09/1999Name: Cisco Laguerre | | SURGEON:Nicholas Fleming M.D. Drafter Directional Survey, | | Surgery Division of UrologyASSISTANT(S): | | Alan Flanagan M.D. Resident, | | UrologyPREOPERATIVE DIAGNOSIS(ES):1. Left colon diverticular disease.2. Need for | | preoperative ureteral stenting.POSTOPERATIVE DIAGNOSIS(ES): 1. Left colon diverticular | | disease. 2. Need for preoperative ureteral stenting. 3.OPERATIONS PERFORMED:1. Rigid | | cystourethroscopy.2. Placement of left ureteral stent.SPECIMEN(S) | | REMOVED:None.ANESTHESIA:General endotracheal.INDICATIONS:This is a 68-year-old woman | | with long-standing left colon diverticulardisease of apparent benign origin. She | | presents at this time to undergolaparoscopic hemicolectomy. [facility] | | preoperatively.FINDINGS:1. The bladder appeared normal throughout without evidence | | of tumors, stones, foreign bodies, or suspicious areas. There was a moderate | | amount of squamous metaplasia present over the trigone.2. A 6 Tongan x 70-cm | | open-end Mendon catheter was placed into the left ureteral without difficulty | | or resistance. This was carefully secured to the Caballero cathter at the | | conclusion of the procedure.PROCEDURE:After obtaining informed consent, the patient | | was taken to the OperatingSuite where she was placed on the operating table in the | | supine position.A general endotracheal anesthetic was induced and maintained | | throughoutthis portion of the procedure without difficulty. The patient was placedin | | the low lithotomy position and the genitalia prepped and draped in asterile | | fashion.A 17.5 cystoscope sheath was advanced over an obturator into the bladder.The | | obturator was removed and the 25-degree lens introduced through thesheath. Findings | | throughout the bladder were as described above. A 6French by 70 cm open-end | | Mendon ureteral catheter was advanced through thecystoscope and into the left ureteral | | orifice. This was then advanced intothe proximal left collecting system without | | resistance or difficulty.With the ureteral stent in place, the cystoscope was | | withdrawn. A #18French 5 cc Caballero catheter was then advanced through the urethra | | and intothe bladder. A total of 10 cc of sterile water was instilled into | | thecatheter balloon and the catheter allowed to drain to gravity. Theureteral | | stent was then multiply secured to the Caballero catheter with 2-0silk suture. A Caballero | | catheter was placed to gravity.The patient was then undraped and repositioned for the | | laparoscopic portionof the procedure, which will be performed by the General Surgery | | Service.Details of this portion of the procedure will be dictated in a | | separateoperative report.The patient appeared to tolerate this portion of the | | procedure well,without any complications or difficulty.Estimated blood loss is less | | than [address] Nicholas Fleming was present for and actually participated in the | | entireprocedure.Alan Flangaan M.D.Nicholas Fleming M.D.LAMBERTO:xt2D: 01/09/99T: | | 01/13/99CC: BRANDYN VOGEL MD [address] [place] | | [address] LYLE JOSHI MD [address] [place] [place] [address] | |1. The bladder appeared normal throughout without evidence of tumors, | | stones, foreign bodies, or suspicious areas. There was a moderate | | amount of squamous metaplasia present over the trigone. | |2. A 6 Tongan x 70-cm open-end Mendon catheter was placed into the left | | ureteral without difficulty or resistance. This was carefully | | secured to the Caballero cathter at the conclusion of the procedure. | | | |PROCEDURE: | |After obtaining informed consent, the patient was taken to the Operating | |Suite where she was placed on the operating table in the supine position. | |A general endotracheal anesthetic was induced and maintained throughout | |this portion of the procedure without difficulty. The patient was placed | |in the low lithotomy position and the genitalia prepped and draped in a | |sterile fashion. | | | |A 17.5 cystoscope sheath was advanced over an obturator into the bladder. | |The obturator was removed and the 25-degree lens introduced through the | |sheath. Findings throughout the bladder were as described above. A 6 | |Tongan by 70 cm open-end Mendon ureteral catheter was advanced through the | |cystoscope and into the left ureteral orifice. This was then advanced into | |the proximal left collecting system without resistance or difficulty. | | | |With the ureteral stent in place, the cystoscope was withdrawn. A #18 | |Tongan 5 cc Caballero catheter was then advanced through the urethra and into | |the bladder. A total of 10 cc of sterile water was instilled into the | |catheter balloon and the catheter allowed to drain to gravity. The | |ureteral stent was then multiply secured to the Caballero catheter with 2-0 | |silk suture. A Caballero catheter was placed to gravity. | | | |The patient was then undraped and repositioned for the laparoscopic portion | |of the procedure, which will be performed by the General Surgery Service. | |Details of this portion of the procedure will be dictated in a separate | |operative report. | | | |The patient appeared to tolerate this portion of the procedure well, | |without any complications or difficulty. | | | |Estimated blood loss is less than 2 cc. | | | |Dr. Nicholas Fleming was present for and actually participated in the entire | |procedure. | | | | | | | |Alan Flanagan M.D. | | | | | | | |Nicholas Fleming M.D. | | | |JJ:xt2 | | | | | | | |CC: | | BRANDYN VOGEL MD | | [address] | | [place] [address] | | | | LYLE JOSHI MD | | [address] [facility] | | [place] [address] | + + | Interface, Manager Quantitative In - 10/01/2006 5:11 AM PST | | [address] | | [place], [place] [address] | | [facility] Rec No.: | | [id number] Date:01/09/1999Name: Carlotta, | | BasiliaueriteKAYLA SURGEON: Mukund Del Rosario M.D. | | Jessica Nolasco M.D.BREAKFAST SUPERVISOR: Hector Ovalle M.D. | | Dick Carvajal M.D.PREOPERATIVE DIAGNOSIS(ES):Chronic | | left sided diverticulosis and diverticulitis.POSTOPERATIVE DIAGNOSIS(ES):Chronic left | | sided diverticulosis and diverticulitis.OPERATIONS PERFORMED:Laparoscopic left | | hemicolectomy.ANESTHESIA:General and local.ESTIMATED BLOOD LOSS:Minimal.SPECIMEN(S) | | REMOVED:Left colon.COMPLICATIONS:Bladder perforation which was repaired by Urology. | | Please see their notefor details.PROCEDURE:The patient was brought to the Operating | | Room, identified and placed in asupine placed. Appropriate lines are placed. | | General anesthesia wasachieved. She is put in stirrups with care being taken not to | | injure herlegs. Urology then placed a left sided stent to provide a marker for | | usduring the case to avoid ureteral injuries. Abdomen and perineum were thenprepped and | | draped in the usual manner. Prior to all skin incisions, theskin was injected | | with 0.5 percent Marcaine without epinephrine. Aperiumbilical incision was made, | | and then using a Veress needle, theabdomen was insufflated to 1.5 millimeters of | | mercury pressure. Then arit lower quadrant 12 millimeter port was placed. A left | | lower [id number] millimeter port was placed, and a left upper quadrant 12 millimeter | | portwas placed, as well as a suprapubic 12 millimeter port. Using these ports,the line | | of Toldt was taken down. The ureter was easily identified, bothby visualization as | | well as palpation. The majority of her diverticulardisease appeared to be in the | | sigmoid colon and was adherent down into thepelvis. Using a combination of cautery and | | short resection, this was takendown, with care being taken not to injure the | | ureter. Once it wasmobilized up from the rectum, the rectum was cleared off on | | its proximalportion, where it was found to be normal in character. Once a window | | wasmade through the mesentery on this side, a 60 millimeter GI stapler wasinserted | | and fired across the colon. The colon was then brought towardsthe patient's head, | | and the mesentery was taken down using the endovascularstapler and harmonics. Once we | | felt we had this mobilized enough, a miniPfannenstiel incision was made through the | | 12 millimeter trocar site andthe suprapubic area, and the colon was delivered through | | this wound. Itwas delivered to the point where we felt we were up to a normal colon, | | andat this point the fat was cleaned off of it and a TA stapler was placedacross it | | and the specimen was then sent off the pathology. A sizer wasthen inserted into the | | colon 28 Tongan fit, and we then inserted the 28 EEAstapler anvil and then sutured down | | our purse string and the mucosa aroundit. We dropped it back into the abdomen. We | | introduced the EA staplerfrom the rectum and pushed it through the rectal wall. After | | we identifiedthe rectal staple line, we then pulled off the cap and inserted our | | anvilonto the EA stapler, with care being taken not to twist the bowel. Oncethe | | bowel was cinched down and stapled, the EA stapler was removed, theabdomen was | | filled with water, and the rectum was insulated. There was noevidence of a leak. | | There was also no evidence of significant tension onthe anastomosis. However, at this | | point anesthesia noted that the Foleybag was inflated with air and we subsequently | | rechecked the ureter whichwas found to be pristine. However, the only concern | | then was that thePfannenstiel incision which we had repaired at this point, using an 0 | | Maxonmust be the source of this new material. Urology was called back intoconsult | | and they did a cystoscopy and found a small perforation on the domeof the bladder, | | which they repaired through the suprapubic incision.Please see their note for | | details. All of the other wounds were closedwith 4-0 Vicryl in the skin and an 0 | | Vicryl in the fascial layers, and thenSteri-Stripped. The patient tolerated the | | procedure well and withoutcomplication, except for the bladder perforation, which | | was corrected byUrology. She was then transferred to the Post Anesthesia Care Unit | | instable condition.Hector Ovalle M.D. Mukund Del Rosario M.D. | | Jessica Nolasco M.D.BM:xt4D: 01/09/1999T: 01/14/1999CC: | | BRANDYN VOGEL MD [address] [place] [address] [facility], | | LYLE Galarza MD [address] [place] [place] [address] | |disease appeared to be in the sigmoid colon and was adherent down into the | |pelvis. Using a combination of cautery and short resection, this was taken | |down, with care being taken not to injure the ureter. Once it was | |mobilized up from the rectum, the rectum was cleared off on its proximal | |portion, where it was found to be normal in character. Once a window was | |made through the mesentery on this side, a 60 millimeter GI stapler was | |inserted and fired across the colon. The colon was then brought towards | |the patient's head, and the mesentery was taken down using the endovascular | |stapler and harmonics. Once we felt we had this mobilized enough, a mini | |Pfannenstiel incision was made through the 12 millimeter trocar site and | |the suprapubic area, and the colon was delivered through this wound. It | |was delivered to the point where we felt we were up to a normal colon, and | |at this point the fat was cleaned off of it and a TA stapler was placed | |across it and the specimen was then sent off the pathology. A sizer was | |then inserted into the colon 28 Tongan fit, and we then inserted the 28 EEA | |stapler anvil and then sutured down our purse string and the mucosa around | |it. We dropped it back into the abdomen. We introduced the EA stapler | |from the rectum and pushed it through the rectal wall. After we identified | |the rectal staple line, we then pulled off the cap and inserted our anvil | |onto the EA stapler, with care being taken not to twist the bowel. Once | |the bowel was cinched down and stapled, the EA stapler was removed, the | |abdomen was filled with water, and the rectum was insulated. There was no | |evidence of a leak. There was also no evidence of significant tension on | |the anastomosis. However, at this point anesthesia noted that the Caballero | |bag was inflated with air and we subsequently rechecked the ureter which | |was found to be pristine. However, the only concern then was that the | |Pfannenstiel incision which we had repaired at this point, using an 0 Maxon | |must be the source of this new material. Urology was called back into | |consult and they did a cystoscopy and found a small perforation on the dome | |of the bladder, which they repaired through the suprapubic incision. | |Please see their note for details. All of the other wounds were closed | |with 4-0 Vicryl in the skin and an 0 Vicryl in the fascial layers, and then | |Steri-Stripped. The patient tolerated the procedure well and without | |complication, except for the bladder perforation, which was corrected by | |Urology. She was then transferred to the Post Anesthesia Care Unit in | |stable condition. | | | | | | | |Hector Ovalle M.D. Mukund Del Rosario M.D. | | | | | | | | Jessica Nolasco M.D. | | | |BM:xt4 | | | | | | | |CC: | | | | | | | | BRANDYN VOGEL MD | | [address] | | [place] [address] | | | | | | | | LYLE JOSHI MD | | [address] [facility] | | [place] [address] | + + | Interface, Manager Quantitative In - 10/01/2006 5:11 AM PST | | [address] | | [place], [place] [address] | | [facility] RECORDMed Rec No.: | | [id number] Date: 01/09/1999Name: Cisco Laguerre PHYSICIAN: | | Nicholas Fleming M.D.BREAKFAST SUPERVISOR(S): Wade Batista M.D. | | Alan Flanagan M.D.PREOPERATIVE DIAGNOSIS(ES):Colon | | cancer.POSTOPERATIVE DIAGNOSIS(ES):Colon cancer.OPERATION(S) PERFORMED:Repair of bladder | | perforation.ANESTHESIA:Not dictated.SPECIMEN(S) REMOVED:Not dictated.INDICATIONS: | | Carlotta is a 68-year-old woman who underwent a laparoscopic lefthemicolectomy. | | During the procedure a Bovie injury to the bladder resultedin an intraperitoneal bladder | | perforation. The urology team was consultedto repair.FINDINGS:The patient had a 1 cm | | intraperitoneal perforation of the dome of thebladder. This was repaired in a | | two-layer closure. At the conclusion ofthe closure it was watertight.PROCEDURE:The | | patient's laparoscopic procedure had been completed. Next, herperineum was | | prepped and draped sterilely and the 19 Tongan Jeff rigidcystoscope was introduced | | through the urethra into the bladder. A thoroughcystourethroscopy was performed and | | revealed a 1 cm perforation at the domeof the bladder. We removed the cystoscope and | | opened the Pfannenstielincision that had been made to remove the colon. This was | | carried downthrough the subcutaneous tissue and fascia, and the previous | | closuresutures removed.We were able to easily identify and grasp the bladder with a | | [place] clamp.Once it was elevated into the wound we easily identified the | | perforation.This was closed in a two-layer closure with closing the mucosa with | | Biosynand closing the detrusor and adventitia with 4-0 Biosyn. Once this wasclosed | | we then cystoscoped the patient again using the 19 Tongan Jeff rigidcystoscope. When | | the bladder was distended there was no leakage from theperforation site. We therefore | | elected to close the wound.The erectus was approximated with 0 PDS. Next, the | | anterior sheath wasclosed with a running 0 PDS. Lastly, the wound was irrigated | | and theScarpa's fascia was closed with 3-0 Vicryl and the skin was closed with | | arunning subcuticular 4-0 Vicryl. A 16 Tongan Caballero catheter was left inplace and | | the wound was steri-stripped and sterile dressing was applied.At the conclusion, | | estimated blood loss was less than 50 cc. There were nocomplications.Wade Batista, | | SriResident, Jennifer Fleming M.D.Drafter Directional Survey, SurgeryDivision of | | UrologyCFK:x10D: 01/09/1999T: 01/14/1999CC: BRANDYN VOGEL MD [address] | | [address] [place] [address] LYLE JOSHI MD [address] [facility] | | [facility] [place] [address] | |hemicolectomy. During the procedure a Bovie injury to the bladder resulted | |in an intraperitoneal bladder perforation. The urology team was consulted | |to repair. | | | |FINDINGS: | |The patient had a 1 cm intraperitoneal perforation of the dome of the | |bladder. This was repaired in a two-layer closure. At the conclusion of | |the closure it was watertight. | | | |PROCEDURE: | |The patient's laparoscopic procedure had been completed. Next, her | |perineum was prepped and draped sterilely and the 19 Tongan Jeff rigid | |cystoscope was introduced through the urethra into the bladder. A thorough | |cystourethroscopy was performed and revealed a 1 cm perforation at the dome | |of the bladder. We removed the cystoscope and opened the Pfannenstiel | |incision that had been made to remove the colon. This was carried down | |through the subcutaneous tissue and fascia, and the previous closure | |sutures removed. | | | |We were able to easily identify and grasp the bladder with a [place] clamp. | |Once it was elevated into the wound we easily identified the perforation. | |This was closed in a two-layer closure with closing the mucosa with Biosyn | |and closing the detrusor and adventitia with 4-0 Biosyn. Once this was | |closed we then cystoscoped the patient again using the 19 Tongan Jeff rigid | |cystoscope. When the bladder was distended there was no leakage from the | |perforation site. We therefore elected to close the wound. | | | |The erectus was approximated with 0 PDS. Next, the anterior sheath was | |closed with a running 0 PDS. Lastly, the wound was irrigated and the | |Florina's fascia was closed with 3-0 Vicryl and the skin was closed with a | |running subcuticular 4-0 Vicryl. A 16 Tongan Caballero catheter was left in | |place and the wound was steri-stripped and sterile dressing was applied. | |At the conclusion, estimated blood loss was less than 50 cc. There were no | |complications. | | | | | | | |Wade Batista M.D. | |Resident, Urology | | | | | | | |Nicholas Fleming M.D. | |Drafter Directional Survey, Surgery | |Division of Urology | | | |CFK:x10 | | | | | | | |CC: | | BRANDYN VOGEL MD | | [address] | | [place] [address] | | | | LYLE JOSHI MD | | [address] [facility] | | [place] [address] | + + documented in this encounter Visit Diagnoses Not on filedocumented in this encounter"
--- OUTSIDE RECORDS SUMMARY | ~2020-07-28 | XMS | Encounter Summary ---
Demographics + + + | Address | [address] | | | [place] [address] | + + + | Home Phone | | + + + | Preferred Language | Unknown | + + + | Marital Status | | + + + | Christian Affiliation | Unknown | + + + | Race | White | + + + | Ethnic Group | Unknown | + + + Author + + + | Author | [facility] | | | and [place] | + + + | Organization | [facility] | | | and [place] | + + + | Address | Unknown | + + + | Phone | Unavailable | + + + Support + + + + + | Name | Relationship | Address | Phone | + + + + + | Stephanie Ross | [place] | [address] | | | | | [place] | | | | | [address] | | + + + + + Care Team Providers + +------+ + | Care Weather Algorithm Scientist Name | Role | Phone | + +------+ + | Manuel Dent MD | PCP | | + +------+ + Encounter Details +--------+ + + + + | Date | Type | Department | Care Team | Description | +--------+ + + + + | 12/25/ | Orders Only | [facility] | Conversion | | | 2019 | | CONVERSION DEP [address] | Transaction, | | | | | [address] | Provider Unknown | | | | | [place], [place] | [phone] | | | | | [address] | | | | | | [phone] | | | +--------+ + + + [...]
--- OUTSIDE RECORDS SUMMARY | ~2020-07-28 | XMS | Encounter Summary ---
Demographics + + + | Address | [address] | | | [place] [address] | + + + | Home Phone | | + + + | Preferred Language | Unknown | + + + | Marital Status | | + + + | Episcopal Affiliation | Unknown | + + + | Race | White | + + + | Ethnic Group | Not or | + + + Author + + + | Author | [facility] | + + + | Organization | [facility] | + + + | Address | Unknown | + + + | Phone | Unavailable | + + + Support + + + + + | Name | Relationship | Address | Phone | + + + + + | Michael Ross | E[place] | [address] | | | | | [place] | | | | | [address] | | + + + + + Care Team Providers + +------+ + | Care Traveling Sales Executive Name | Role | Phone | + +------+ + PCP | Unavailable | + +------+ + Encounter Details +--------+ + + + + | Date | Type | Department | Care Team | Description | +--------+ + + + + | 11/05/ | ED Progress | [facility] | Report, Emergency | ED Progress Note | | 1998 | | MEDICINE | Services | | | | Note-Transc | | | | | | ribed | | | | +--------+ + + [...] + + documented as of this encounter ED Notes Interface, Pbx Technician In - 10/09/2006 3:07 AM PSTDATE OF SERVICE: 11/05/18 99 PRIMARY CARE PROVIDER: None. CHIEF COMPLAINT: High blood pressure. HISTORY OF PRESENT ILLNESS: Ms. Laguerre is a 68-year-old female who has a past medical history notable for valvular heart disease. She was sent over to the emergency department from the [facility] by the nurses on the floor after her blood pressure was checked and noted to be 200/104. The patient has been staying at the [facility] over the last three weeks, as her is in terminal medical status from lymphoma at this point. The patient had been complaining of a mild headache, which has gradually progressed over the last three weeks and which she attributes to the extreme stress she has been under during the past few weeks secondary to her 's medical condition. She complained of her headache to one of the nurses, who decided to check her blood pressure and noted it was 200/104. The patient does not have any known history of hypertension, although she does not seek medical attention on a regular basis. The patient denies any chest pain or shortness of breath. She admits to mild abdominal discomfort, which has been stable over several months, and she is awaiting diverticulitis surgery by in the next few weeks. She denies any visual changes. No blurriness, no diplopia, but she has noticed one new "floater" in her left eye over the past week. She is feeling somewhat on edge and anxious and under a great deal of stress, given the social situation she is under, and she and her son, who is present, were requesting medication for this. PAST MEDICAL HISTORY 1. Diverticulitis, awaiting surgical intervention via Dr. Del Rosario [facility]. 2. Status post total abdominal hysterectomy. 3. Status post cholecystectomy. 4. Status post appendectomy. 5. History of rheumatic fever with resultant valvular heart disease; she is not currently followed by a provider for this issue. MEDICATIONS: Iron. REVIEW OF SYSTEMS: All systems are negative, except as described above. SOCIAL HISTORY: The patient is and has one son. She denies tobacco abuse. Occasional alcohol use. No IV drug abuse or illicit drug use. PHYSICAL EXAMINATION: VITAL SIGNS: Blood pressure 175/66, heart rate 72, respirations 16, temperature 36.6. GENERAL: The patient is alert, pleasant, and appears slightly anxious, fidgeting, and cooperative, in no acute distress. HEENT: Pupils are equal, round, and reactive to light. Extraocular muscles are intact. Fundi are visualized. Both disks are appreciated to be very sharp with a normal cup-to-disk ratio and no papilledema. NECK: Supple, without rigidity or lymphadenopathy. CARDIOVASCULAR: The heart is regular rhythm and rate with a 3/6 holosystolic murmur heard best at the upper sternal border but radiated throughout the precordium and to the carotids bilaterally. RESPIRATORY: Lungs are clear to auscultation bilaterally. No wheezes, rhonchi, or rales. ABDOMEN: Soft, nontender, and nondistended. No hepatosplenomegaly. Normoactive bowel sounds. EXTREMITIES: No cyanosis, clubbing, or edema. LABORATORY DATA: Sodium 137, potassium 3.6, BUN 15, creatinine 0.7, chloride 111, CO2 26, glucose 98. Studies: Electrocardiogram was notable for a normal sinus rhythm, T-wave flattening/inversion in lead III, no Q waves, no ST-T changes, no hypertrophy, and borderline QRS prolongation with an interval of 0.96. EMERGENCY DEPARTMENT COURSE: The patient arrived via ambulatory status and was triaged to the acute side of the emergency department. Nurses' notes were reviewed. The staff physician was Dr.Zane Hollingsworth. The patient's blood pressure on arrival was 175/66; recheck was 141/55. The patient was complaining of a mild headache, although this seemed more to be a tension headache in nature, given the long duration and description, as she described a squeezing sensation radiating from the back of her neck up toward her forehead. She has been under a great deal of stress over the last few weeks secondary to her 's medical condition. Electrocardiogram did not show any evidence of acute cardiac ischemia. A Chem-7 was remarkable for normal kidney function. Physical examination was remarkable for no papilledema or retinal hemorrhages appreciated. At this point, it is felt that her hypertension does indeed need to be monitored but does not need to be treated acutely. There is no evidence of end-organ damage, and her blood pressure trended down while she rested here. In regard to her request for anti-anxiety medication, we explained to her we felt this would best be done by her primary care provider. We do not feel very comfortable starting her on an anti-anxiolytic medication without further evaluation. In addition, oftentimes medicating somebody for such issues does not promote good coping skills with the situation. She understood and agreed. We discussed with her the importance for her to establish health care with a primary care provider due to her hypertension and valvular heart disease. She understood and said she would follow up likely with a new primary care provider in [place], [place]. CLINICAL IMPRESSION 1. Hypertension. 2. Anxiety, not otherwise specified. DISPOSITION: The patient was discharged to home. DISCHARGE INSTRUCTIONS 1. Recommended she follow up with her primary care provider for evaluation of her valvular heart disease and hypertension, as well as anxiety issues. 2. Instructed her that if she developed worsening headache, blurry vision, chest pain, or shortness of breath she was to return to the emergency department for evaluation. CONDITION ON DISCHARGE: Stable. Mary Sanchez M.D. Manpreet Hollingsworth M.D. G / [id number] / [id number] / documented in this encounter Plan of Treatment Not on filedocumented as of this encounter Visit Diagnoses Not on filedocumented in this encounter
--- OUTSIDE RECORDS SUMMARY | ~2020-07-28 | XMS | Encounter Summary ---
Demographics + + + | Address | [address] | | | [place] [address] | + + + | Home Phone [...] + | Michael Ross | E[place] | [address] | | | | | [place] | | | | | [address] | | + + + + + Care Team Providers + +------+ + | Care Bracelet Maker Novelty Name | Role | Phone | + +------+ + PCP | Unavailable | + +------+ + Encounter Details +--------+ + + + + | Date | Type | Department | Care Team | Description | +--------+ + + + + | 08/29/ | Results | Registration [id number] | | | | 1994 | Only | [address] | | | | | | Keagan Mailcode: [id number] | | | | | | [place], [place] | | | | | | [address] | | | | | | [phone] | | | +--------+ + + + [...] | + +--------+ + + + | MICROBIOLOGY TESTS 1 | Routin | 09/13/1995 | | Results for this | | | e | 9:05 PM | | procedure are in the | | | | PST | | results section. | + +--------+ + + + | MICROBIOLOGY TESTS 1 | Routin | 09/13/1995 | | Results for this | | | e | 9:05 PM | | procedure are in the | | | | PST | | results section. | + +--------+ + + + | CHEMISTRY TESTS 4 | Routin | 08/29/1995 | | Results for this | | | e | 5:06 PM | | procedure are in the | | | | PST | | results section. | + +--------+ + + + | CBC TESTS 2 | Routin | 08/29/1995 | | Results for this | | | e | 5:06 PM | | procedure are in the | | | | PST | | results section. | + +--------+ + + + | CHEMISTRY TESTS 2 | Routin | 08/29/1995 | | Results for this | | | e | 5:06 PM | | procedure are in the | | | | PST | | results section. | + +--------+ + + + documented in this encounter Results MICROBIOLOGY TESTS 1 (09/13/1995 9:05 PM PST) + + + + + + | Component | Value | Ref Range | Performed | Pathologist | | | | | At | Signature | + + + + + + | CULTURE | Test Ordered | | | | | RESULT | GC/CHLAMYDIA DNA | | | | | | PROBEOrdering Loc | | | | | | 4LDSpecimen Type | | | | | | SWAB CERVIX | | | | + + + + + + + + | Specimen | + + | | + + + + + + + | Performing | Address | City/State/Zipcode | Phone Number | | Organization | | | | + + + + + | [facility] | [address] | [place] [address] | | | PATHOLOGY | [address] | | | + + + + + MICROBIOLOGY TESTS 1 (09/13/1995 9:05 PM PST) + + + + + + | Component | Value | Ref Range | Performed | Pathologist | | | | | At | Signature | + + + + + + | CULTURE | Test Ordered | | | | | RESULT | GENITAL CULTUREOrdering | | | | | | Loc 4LDSpec Set | | | | | | Up Date 09/13Spec | | | | | | Set Up Time | | | | | | 22:18Specimen Type | | | | | | SWAB CERVIXReport | | | | | | Status PRELIM | | | | + + + + + + + + | Specimen | + + | | + + + + + + + | Performing | Address | City/State/Zipcode | Phone Number | | Organization | | | | + + + + + | [facility] | [address] | [place] [address] | | | PATHOLOGY | [address] | | | + + + + + CHEMISTRY TESTS 2 (08/29/1995 5:06 PM PST) + + + + + + | Component | Value | Ref Range | Performed | Pathologist | | | | | At | Signature | + + + + + + | CHOLESTEROL | 229. | mg/dL | | | | (LAB) | | | | | + + + + + + + + | Specimen | + + | | + + + + + + + | Performing | Address | City/State/Zipcode | Phone Number | | Organization | | | | + + + + + | [facility] | [address] | [place] [address] | | | PATHOLOGY | [address] | | | + + + + + CHEMISTRY TESTS 4 (08/29/1995 5:06 PM PST) + + + + + + | Component | Value | Ref Range | Performed | Pathologist | | | | | At | Signature | + + + + + + | SODIUM, | 140. | mmol/l | | | | PLASMA | | | | | | (LAB) | | | | | + + + + + + | POTASSIUM, | 4.6 | mmol/l | | | | PLASMA [...] + + + | BUN, PLASMA | 7. | mg/dL | | | | (LAB) [...] + + + + + + | CALCIUM, | 9.8 | mg/dL | | | | PLASMA | | | | | | (LAB) | | | | | + + + + + + | MAGNESIUM,P | 2.1 | mg/dL | | | | LASMA | | | | | + + + + + + | PHOSPHORUS, | 4. | mg/dL | | | | PLASMA | | | | | | (LAB) | | | | | + + + + + + | URIC ACID, | 4.2 | mg/dL | | | | PLASMA | | | | | | (LAB) | | | | | + + + + + + | AST(SGOT) | 27. | U/L | | | + + + + + + | ALT (SGPT) | 30. | U/L | | | + + + + + + | ALK PHOS | 61. | U/L | | | + + + + + + | LD TOTAL, | 197. | U/L | | | | PLASMA | | | | | + + + + + + | BILIRUBIN | 0.2 | mg/dL | | | | DIRECT | | | | | + + + + + + | BILIRUBIN | 1.1 | mg/dL | | | | TOTAL | | | | | + + + + + + | TOTAL | 7.3 | GM/DL | | | | PROTEIN, | | | | | | PLASMA | | | | | | (LAB) | | | | | + + + + + + | ALBUMIN, | 4.7 | GM/DL | | | | PLASMA | | | | | | (LAB) | | | | | + + + + + + + + | Specimen | + + | | + + + + + + + | Performing | Address | City/State/Zipcode | Phone Number | | Organization | | | | + + + + + | [facility] | [address] | [place], [place] [address] | | | PATHOLOGY | [address] | | | + + + + + CBC TESTS 2 (08/29/1995 5:06 PM PST) + + + + + + | Component | Value | Ref Range | Performed | Pathologist | | | | | At | Signature | + + + + + + | WHITE CELL | 5.7 | K/CU MM | | | | COUNT | | | | | + + + + + + | RED CELL | 4.05 | M/CU MM | | | | COUNT | | | | | + + + + + + | HEMOGLOBIN | 12.6 | GM/DL | | | + + + + + + | HEMATOCRIT | 35.9 (L) | % | | | + + + + + + | MCV | 88.5 | FL | | | + + + + + + | MCH | 31.2 | PG | | | + + + + + + | MCHC | 35.2 (H) | GM/DL | | | + + + + + + | RDW | 12.2 | % | | | + + + + + + | PLATELET | 231. | K/CU MM | | | | COUNT | | | | | + + + + + + | MPV | 9.6 | FL | | | + + + + + + | NEUTROPHIL | 46. | % | | | | % | | | | | + + + + + + | LYMPHOCYTE | 34. | % | | | | % | | | | | + + + + + + | MONOCYTE % | 13. (H) | % | | | + + + + + + | EOS % | 7. (H) | % | | | + + + + + + | BASO % | 1. | % | | | + + + + + + | NEUTROPHIL | 2.7 | K/CU MM | | | | # | | | | | + + + + + + | LYMPHOCYTE | 1.9 | K/CU MM | | | | # | | | | | + + + + + + | MONOCYTE # | 0.7 (H) | K/CU MM | | | [...] | + + + + + | [facility] | [address] | [place] [address] | | | PATHOLOGY | [address] | | | + + + + + documented in this encounter Visit Diagnoses Not on filedocumented in this encounter"
--- OUTSIDE RECORDS SUMMARY | ~2020-07-28 | XMS | Encounter Summary ---
Demographics + + + | Address | [address] | | | [place] [address] | + + + | Home Phone | | + + + | Preferred Language | Unknown | + + + | Marital Status | | + + + | Anabaptism Affiliation | Unknown | + + + [...] + | Michael Ross | [place] | [address] | | | | | [place] | | | | | [address] | | + + + + + Care Team Providers + +------+ + | Care Senior Engineering Technician Name | Role | Phone | + +------+ + PCP | Unavailable | + +------+ + Encounter Details +--------+ + + + + | Date | Type | Department | Care Team | Description | +--------+ + + + + | 01/16/ | Transcribed | | Dictation, Other | Transcribed | | 1999 | | | | | +--------+ + [...] as of this encounter Progress Notes Interface, Hotel Maintenance Engineer In - 10/01/2006 5:11 AM [facility] [place] [address] [address] or January 16, 1999 [place] [address] [place] [id number] RE: Yvonne Najera MR#: [id number] Rocha: It was a pleasure to pass you in the hallway the other day - I hope we get some time to chat soon. As you know, I accompanied Yvonne to the operating room on January 09. At that time, she had laparoscopic exploration, which demonstrated only evidence of moderate diverticulitis and diverticulosis. She had no evidence of malignancy. We went on to perform a laparoscopic left hemicolectomy with a primary anastomosis. Yvonne did extremely well and was discharged on January 13. I will see her back in approximately three weeks' time and let you know how she is doing then. Yvonne also needs to see the urologist in approximately one week. This was because of a bladder perforation which was subsequently repaired and is being decompressed by a Caballero catheter for an additional week. Her final histology is pending, and I will keep you posted if there are any surprises. All in all, I would just like to thank you for the opportunity to care for this very, very pleasant and patient woman. I think she is recovering a bit from her 's passing, and is looking forward to putting this behind her and moving on with many things that she wants to do. Take care of yourself. Sincerely, Mukund Del Rosario M.D. BCS:x12 Tdocumented in this encounter Plan of Treatment Not on filedocumented as of this encounter Visit Diagnoses Not on filedocumented in this encounter"
--- OUTSIDE RECORDS SUMMARY | ~2020-07-28 | XMS | Encounter Summary ---
Demographics + + + | Address | [address] | | | [place] [address] | + + + | Home Phone | | + + + | Preferred Language | Unknown | + + + | Marital Status | | + + + | Hinduism Affiliation | Unknown | + + + [...] + | Michael Ross | [place] | [address] | | | | | [place] | | | | | [address] | | + + + + + Care Team Providers + +------+ + | Care Signal Helper Name | Role | Phone | [...] as of this encounter Progress Notes Interface, Development Technical Lead In - 10/01/2006 5:11 AM [facility] [place] [address] [address] or January 16, 1999 [place] [address] [place] [id number] RE: Yvonne Najera MR#: [id number] [...]
--- OUTSIDE RECORDS SUMMARY | ~2020-07-28 | XMS | Encounter Summary ---
Demographics + + + | Address | [address] | | | [place] [address] | + + + | Home Phone [...] Author + + + | Author | [facility] | + + + | Organization | [facility] | + + + | Address | Unknown | + + + | Phone | Unavailable | + + + Support + + + + + | Name | Relationship | Address | Phone | + + + + + | Michael Ross | ECON | [address] | | | | | [place] | | | | | [address] | | + + + + + Care Team Providers + +------+ + | Care Invoicing Machine Operator Name | Role | Phone [...] [id number] | | | | | | [place], [place] | | | | | | [address] | | | | | | [phone] | | | +--------+ + + + [...] | + + + + + | [facility] | [address] | [place] [address] | | | PATHOLOGY | [address] [...] | + + + + + | [facility] | [address] | [place] [address] | | | PATHOLOGY | [address] [...] | + + + + + | [facility] | [address] | [place] [address] | | | PATHOLOGY | [address] [...] | + + + + + | [facility] | [address] | [place], [place] [address] | | | PATHOLOGY | [address] [...] | + + + + + | [facility] | [address] | [place] [address] | | | PATHOLOGY | [address] | | | + + + + + documented in this encounter Visit Diagnoses Not on filedocumented in this encounter"
--- OUTSIDE RECORDS SUMMARY | ~2020-07-28 | XMS | Encounter Summary ---
Demographics + + + | Address | [address] | | | [place] [address] | + + + | Home Phone | | + + + | Preferred Language | Unknown | + + + | Marital Status | | + + + | Mosque Affiliation | Unknown | + + + | Race | White | + + + | Ethnic Group | Unknown | + + + Author + + + | Author | [facility] | | | and [place] | + + + | Organization | [facility] | | | and [place] | + + + | Address | Unknown | + + + | Phone | Unavailable | + + + Support + + + + + | Name | Relationship | Address | Phone | + + + + + | Stephanie Ross | ECON | [address] | | | | | [place] | | | | | [address] | | + + + + + Care Team Providers + +------+ + | Care Eligibility Analyst Name | Role | Phone | + +------+ + PCP | Unavailable | + +------+ + Encounter Details +--------+ + + + + | Date | Type | Department | Care Team | Description | +--------+ + + + + | 05/20/ | Hospital | [facility] | Dmitriy Desai MD | OTHER SPECIFIED | | 2010 | Encounter | CONVERSION [address]P [address] | [address] | COMPLICATIONS; | | | | [address] | [place], [place] | Unspecified | | | | [place], [place] | [address] | essential | | | | [address] | | hypertension; | | | | [phone] | | Esophageal reflux; | | | | | | Coronary | | | | | | atherosclerosis of | | | | | | tyonek coronary | | | | | | artery; Abn | | | | | | React-Surg Proc NEC; | | | | | | Encounter for | | | | | | long-term (current) | | | | | | use of aspirin | +--------+ + + + + Social [...] + + documented as of this encounter Medications at Time of Discharge + + + +---------+ + + | Medication | Sig | Dispensed | Refills | Start | End Date | | | | | | Date | | + + + +---------+ + + | aspirin (ASPIRIN | Take 81 mg by mouth | | 0 | 05/18/20 | | | LOW DOSE) 81 MG | daily. | | | 11 | | | tablet | | | | | | + + + +---------+ + + documented as of this encounter Plan of Treatment Not on filedocumented as of this encounter Procedures + +--------+ + + + | Procedure Name | Priori | Date/Time | Associated Diagnosis | Comments | | | ty | | | | + +--------+ + + + | XR CHEST 2 VIEWS | Routin | 05/18/2011 | | Results for this | | | e | 3:48 PM | | procedure are in the | | | | PDT | | results section. | + +--------+ + + + documented in this encounter Results XR Chest 2 Vws (05/18/2011 3:48 PM PDT) + + | Specimen | + + | | + + + + + | Narrative | Performed At | + + + | [facility] [address] Ph: | | | Patient Name: JB HERNANDEZ Date of | | | : 1930 Medical Record: [id number] Account: | | | [id number] Exam Date/Time: 05/18/2011 | | | 14:37 Ordering Physician: DMITRIY DESAI Order Detail: [id number] | | | Exam Description: XR CHEST 2 VIEW | | | | | | JB HERNANDEZ XR CHEST 2 VIEW 05/18/2011 2:37 PM HISTORY: | | | 81 years. Female. Preoperative chest films. TECHNIQUE: PA | | | and lateral chest films. COMPARISON: Chest films dating from March | | | 2005 until April 04, 2006. FINDINGS: Again noted is evidence | | | of median sternotomy for aortic valve replacement. Cholecystectomy | | | clips are again observed. Bilateral pleural effusions have resolved. | | | Minimal linear scarring remains at the left lung base. Otherwise the | | | lung darby are clear. No pneumothorax or pleural effusion is found. | | | Mild to moderate degenerative change of the thoracic spine is seen. | | | IMPRESSION: 1. No evidence of acute cardiopulmonary disease, | | | unchanged evidence of aortic valve replacement, cholecystectomy, and | | | scarring at the left lung base. | | + + + + + | Procedure Note | + + | Jay Jay Quiroz Conversion - 06/02/2019 2:49 PM PDT | | [facility] | | [facility] [address] | | | | | | Patient Name: EZIO HERNANDEZUERSHEILA Whyte | | Date of : 1930 | | Medical Record: [id number] | | Account: [id number] | | | | | | Exam Date/Time: 05/18/2011 14:37 | | Ordering Physician: DMITRIY DESAI | | Order Detail: [id number] | | Exam Description: XR CHEST 2 VIEW | | | | JB Isabell HERNANDEZ | | XR CHEST 2 VIEW | | 05/18/2011 2:37 PM | | | | HISTORY: | | 81 years. Female. Preoperative chest films. | | | | TECHNIQUE: | | PA and lateral chest films. | | | | COMPARISON: | | Chest films dating from March 26, 2006 until April 04, 2006. | | | | FINDINGS: | | Again noted is evidence of median sternotomy for aortic valve replacement. | | Cholecystectomy clips are again observed. Bilateral pleural effusions have | | resolved. Minimal linear scarring remains at the left lung base. Otherwise | | the lung darby are clear. No pneumothorax or pleural effusion is found. | | Mild to moderate degenerative change of the thoracic spine is seen. | | | | IMPRESSION: | | 1. No evidence of acute cardiopulmonary disease, unchanged evidence of | | aortic valve replacement, cholecystectomy, and scarring at the left lung | | base. | | | | | + + documented in this encounter Visit Diagnoses + + | Diagnosis | + + | Other specified complications | + + | Unspecified essential hypertension | + + | Esophageal reflux | + + | Coronary atherosclerosis of tyonek coronary artery | + + | Other specified surgical operation and procedure causing abnormal patient reaction, or | | later complication, without mention of misadventure at time of operation | + + | Encounter for long-term (current) use of aspirin | + + documented in this encounter"
--- OUTSIDE RECORDS SUMMARY | ~2020-07-28 | XMS | Encounter Summary ---
Demographics + + + | Address | [address] | | | [place] [address] | + + + | Home Phone | | + + + | Preferred Language | Unknown | + + + | Marital Status | | + + + | Congregation Affiliation | Unknown | + + + | Race | White | + + + | Ethnic Group | Not or | + + + Author + + + | Author | [facility] | + + + | Organization | [facility] | + + + | Address | Unknown | + + + | Phone | Unavailable | + + + Support + + + + + | Name | Relationship | Address | Phone | + + + + + | Michael Ross | ECON | [address] | | | | | [place] | | | | | [address] | | + + + + + Care Team Providers + +------+ + | Care Machine Erector Name | Role | Phone | + +------+ + PCP | Unavailable | + +------+ + Encounter Details +--------+ + + + + | Date | Type | Department | Care Team | Description | +--------+ + + + + | 02/04/ | Office | [facility] | Note, [...] as of this encounter Progress Notes Interface, Stiff Neck Loader In - 09/29/2006 3:04 AM PSTCLINIC DATE: 02/04/1999 [facility] SUBJECTIVE: Ms. Campbell is a woman who is one month out from a laparoscopic left hemicolectomy for chronic diverticulitis. She also had a perforation of the bladder during this procedure, which was repaired by Urology. She now presents to clinic for follow-up with complaints of some intermittent, right lower-quaerant pain in her abdominal wall. She states that this pain improves when she lies flat and relaxes. She has had no difficulty with eating, moving her bowels, nausea or vomiting, fevers, and she is off of her antibiotics. Her left-sided abdominal pain due to her diverticulitis, which she had prior to surgery, has now resolved, and she is happy with this result. OBJECTIVE: On examination her abdomen is soft, nondistended, and nontender. All of the incisions are clean, dry, healed, and intact without signs of infection. She indicates that the point of pain is between the small suprapubic incision and the right lower-quadrant incision. Upon palpation, there is no evidence of a hernia or mass, and there are no peritoneal signs. However, she was told that there could possibly be a small hernia in this location that I cannot feel at this time, but it is certainly not incarcerated or strangulated. PLAN: The patient is discharged from this clinic and is to return on a p.r.n basis. She was told that if she has further difficulties with the right lower-quadrant tenderness, or if a lump appears and does not resolve, she is to return to our clinic for evaluation, or see her local surgeon. Otherwise, she is to continue on a regular diet as tolerated, and use stool softeners as needed. Hector Ovalle M.D. Mukund Del Rosario M.D. LIANET/moisés C: 02/17/1999 jimmy CC: Grover Rocha MD [id number] Nicholas Fleming MD [id number] signed by Interface, Stiff Neck Loader In at 09/29/2006 3:04 AM PSTdocument ed in this encounter Plan of Treatment Not on filedocumented as of this encounter Visit Diagnoses Not on filedocumented in this encounter"
--- OUTSIDE RECORDS SUMMARY | ~2020-07-28 | XMS | Encounter Summary ---
Demographics + + + | Address | [address] | | | [place] [address] | + + + | Home Phone | | + + + | Preferred Language | Unknown | + + + | Marital Status | | + + + | Adventist Affiliation | Unknown | + + + | Race | White | + + + | Ethnic Group | Unknown | + + + Author + + + | Author | [facility] | | | and [place] | + + + | Organization | [facility] | | | and [place] | + + + | Address | Unknown | + + + | Phone | Unavailable | + + + Support + + + + + | Name | Relationship | Address | Phone | + + + + + | Stephanie Ross | ECON | [address] | | | | | [place] | | | | | [address] | | + + + + + Care Team Providers + +------+ + | Care Blood Or Blood Bank Technician Name | Role | Phone | [...] Provider Unknown | | | | | [place], [place] | [phone] | | | | | [address] | | | | | | [phone] | | | +--------+ + + + [...] Coronary atherosclerosis of unspecified type of vessel, [place] or graft | + + documented in this encounter"
--- OUTSIDE RECORDS SUMMARY | ~2020-07-28 | XMS | Encounter Summary ---
Demographics + + + | Address | [address] | | | [place] [address] | + + + | Home Phone | | + + + | Preferred Language | Unknown | + + + | Marital Status | | + + + | Jewish Affiliation | Unknown | + + + | Race | White | + + + | Ethnic Group | Not or | + + + Author + + + | Author | [facility] | + + + | Organization | [facility] | + + + | Address | Unknown | + + + | Phone | Unavailable | + + + Support + + + + + | Name | Relationship | Address | Phone | + + + + + | Michael Ross | ECON | [address] | | | | | [place] | | | | | [address] | | + + + + + Care Team Providers + +------+ + | Care Remote Encoding Operations Supervisor Name | Role | Phone | + +------+ + PCP | Unavailable | + +------+ + Encounter Details +--------+ + + + + | Date | Type | Department | Care Team | Description | +--------+ + + + + | 07/25/ | Hospital | Dermatopathology | | | | 2017 | Encounter | [address] | | | | | | Mailcode: [id number] | | | | | | [facility] | | | | | | and Healing, | | | | | | Building [address], | | | | | | Floor [place], [place] | | | | | | [address] | | | | | | [phone] | | | +--------+ + + + [...] | + +--------+ + + + | DERM PATHOLOGY | Routin | 07/25/2017 | Carcinoma in situ | Results for this | | | e | | of skin of other | procedure are in the | | | | | parts of face | results section. | + +--------+ + + + documented in this encounter Results DERM PATHOLOGY (07/25/2017) + + + + + + | Component | Value | Ref Range | Performed | Pathologist | | | | | At | Signature | + + + + + + | DERMATOPATH | SOURCE OF SPECIMEN:A Rt. | | [facility] | | | OLOGY(WET | lateral cheek, shave | | DERMATOPATH | | | MNT) | biopsy CLINICAL | | OLOGY | | | | DESCRIPTION:8.5 x 6 mm | | | | | | erythematous brown | | | | | | hyperkeratotic papule; | | | | | | r/o inflamed SK vs AKvs | | | | | | SCC. GROSS | | | | | | DESCRIPTION:Received in | | | | | | formalin is a specimen | | | | | | labeled Carlotta, | | | | | | Yvonne:A: Specimen | | | | | | is labeled "R lateral | | | | | | cheek" and consists of | | | | | | an irregular shaveof | | | | | | papular patchy | | | | | | bwlnl-jnm-glr-brown | | | | | | skin, [id number]. The | | | | | | surgical margin isinked | | | | | | blue; the tissue is | | | | | | trisected, and entirely | | | | | | submitted in cassette | | | | | | A1. MICROSCOPIC | | | | | | DESCRIPTION:There is an | | | | | | asymmetric and poorly | | | | | | circumscribed neoplasm | | | | | | characterized | | | | | | byparakeratosis | | | | | | overlying atypical | | | | | | keratinocytes at all | | | | | | levels of theepidermis. | | | | | | Most of the cells have | | | | | | pleomorphic, | | | | | | hyperchromatic nuclei, | | | | | | someare in mitosis, and | | | | | | most have eosinophilic | | | | | | cytoplasm. 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 NOTE: | | | | | | The squamous cell | | | | | | carcinoma in situ | | | | | | extends to the | | | | | | peripheral anddeep | | | | | | margins. | | | | | | KPW:jb07/28/17 My | | | | | | electronic signature | | | | | [...] | | diagnosis. | | | | | | Electronically signed | | | | | | by: Roscoe De Dios | | | | | | M.D.PathologistDate | | | | | | Completed: 07/28/2017 | | | | | | 5:57PM | | | | + + + + + + + + | Specimen | + + | | + + + + + | Narrative | Performed At | + + + | | | + + + + + + + + | Performing | Address | City/State/Zipcode | Phone Number | | Organization | | | | + + + + + | [facility] | Mailcode CH[address]D [address] | [place] [address] | | | DERMATOPATHOLOGY | [address] | | | + + + + + | [facility] | Mailcode CH[address]D [address] | [place] [address] | | | DERMATOPATHOLOGY | [address] | | | + + + + + documented in this encounter Visit Diagnoses + + | Diagnosis | + + | 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
--- OUTSIDE RECORDS SUMMARY | ~2020-07-28 | XMS | Encounter Summary ---
Demographics + + + | Address | [address] | | | [place] [address] | + + + | Home Phone | | + + + | Preferred Language | Unknown | + + + | Marital Status | | + + + | Restorationist Affiliation | Unknown | + + + | Race | White | + + + | Ethnic Group | Unknown | + + + Author + + + | Author | [facility] | | | and [place] | + + + | Organization | [facility] | | | and [place] | + + + | Address | Unknown | + + + | Phone | Unavailable | + + + Support + + + + + | Name | Relationship | Address | Phone | + + + + + | Stephanie Ross | ECON | [address] | | | | | [place] | | | | | [address] | | + + + + + Care Team Providers + +------+ + | Care Ethanol Maintenance Mechanic Name | Role | Phone | + [...] + + | 03/17/ | Refill | [facility] | Anai Jade | Medication Refill | | 2019 | | CARDIOLOGY JUN | [address] | | | | | [address] | [address] | | | | | [address] | [place] [address] | | | | | [place] | [phone] | | | | | [address] | | | | | | [phone] | | | +--------+--------+ + + + [...]
--- OUTSIDE RECORDS SUMMARY | ~2020-07-28 | XMS | Encounter Summary ---
Demographics + + + | Address | [address] | | | [place] [address] | + + + | Home Phone | | + + + | Preferred Language | Unknown | + + + | Marital Status | | + + + | Rastafari Affiliation | Unknown | + + + | Race | White | + + + | Ethnic Group | Not or | + + + Author + + + | Author | [facility] | + + + | Organization | [facility] | + + + | Address | Unknown | + + + | Phone | Unavailable | + + + Support + + + + + | Name | Relationship | Address | Phone | + + + + + | Michael Ross | ECON | [address] | | | | | [place] | | | | | [address] | | + + + + + Care Team Providers + +------+ + | Care Hydrogen Treater Name | Role | Phone | + [...] [address] | | | | | | [facility] | | | | | | and Healing, | | | | | | Building [address], | | | | | | Floor [place], [place] | | | | | | [address] | | | | | | [phone] | | | +--------+ + + + [...] patchy | | | | | | hsglq-chj-ahd-brown | | | | | | skin, [id number]. 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
--- OUTSIDE RECORDS SUMMARY | ~2020-07-28 | XMS | Encounter Summary ---
Demographics + + + | Address | [address] | | | [place] [address] | + + + | Home Phone [...] + | Michael Ross | [place] | [address] | | | | | [place] | | | | | [address] | | + + + + + Care Team Providers + +------+ + | Care Insurance Adviser Name | Role | Phone | + +------+ + PCP | Unavailable | + +------+ + Encounter Details +--------+ + + + + | Date | Type | Department | Care Team | Description | +--------+ + + + + | 07/02/ | Results | | Other, Faculty | | | 1996 | Only | | [phone] | | +--------+ + + + + [...] | + +--------+ + + + | WRIST, 2 VIEWS | Routin | 07/02/1997 | | Results for this | | | e | 11:03 AM | | procedure are in the | | | | PDT | | results section. | + +--------+ + + + documented in this encounter Results WRIST, 2 VIEWS (07/02/1997 11:03 AM PDT) + + + + + + | Component | Value | Ref Range | Performed | Pathologist | | | | | At | Signature | + + + + + + | WRIST, 2 | Radiologist 1: KYLAH, | | | | | JOSE | Nelson REYES | | | | | | Sri-Radiologist 2: SPENCER | | | | | | AZIZA CARO, | | | | | | MSILVANA, | | | | | | JB | | | | | | | | | | | | | | | | | | [birth year] RIGHT | | | | | | WRIST, TWO VIEWS: | | | | | | 07/02/97 AT 1103 HOURS | | | | | | DICTATED: 07/03/97 | | | | | | No comparisons. | | | | | | FINDINGS: There is no | | | | | | evidence for acute | | | | | | fracture. There | | | | | | isquestionable minimal | | | | | | scapholunate | | | | | | dissociation without | | | | | | evidence forrotary | | | | | | subluxation. 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 The | | | | | | wrist is diffusely | | | | | | osteopenic. IMPRESSION: | | | | | | No acute fracture. | | | | | | Old healed | | | | | | posttraumatic | | | | | | deformities are | | | | | | present.There is | | | | | | questionable minimal | | | | | | scapholunate | | | | | | dissociation. END OF | | | | | | IMPRESSION: | | | | + + + + + + + + | Specimen | + + | | + + + + + | Narrative | Performed At | + + + | Ordered by CRISTIAN CARRERA M.D. | | + + + + +---------+ + + | Performing | Address | City/State/Zipcode | Phone Number | | Organization | | | | + +---------+ + + | [facility] | | | | | RADIOLOGY | | | | + +---------+ + + documented in this encounter Visit Diagnoses Not on filedocumented in this encounter"
--- OUTSIDE RECORDS SUMMARY | ~2020-07-28 | XMS | Encounter Summary ---
Demographics + + + | Address | [address] | | | [place] [address] | + + + | Home Phone [...] + + + | Author | [facility] | + + + | Organization | [facility] | + + + | Address | Unknown | + + + | Phone | Unavailable | + + + Support + + + + + | Name | Relationship | Address | Phone | + + + + + | Michael Ross | ECON | [address] | | | | | [place] | | | | | [phone] | | + + + + + Care Team Providers + +------+ + | Care Pulmonary Fellow Name | Role | Phone | + +------+ + PCP | Unavailable | + +------+ + Encounter Details +--------+ + + + + | Date | Type | Department | Care Team | Description | +--------+ + + + + | 08/20/ | Office | [facility] | Note, Outpatient | Progress Note | | 1997 | Visit-Trans | MEDICINE | Clinic | [...] as of this encounter Progress Notes Interface, Plastic Injection Mold Maker In - 10/15/2006 5:08 AM PSTCLINIC DATE: 08/20/1998 GENERAL SURGERY CLINIC CHIEF COMPLAINT: Intermittent lower abdominal pain. HISTORY OF PRESENT ILLNESS: The patient is a 68-year-old woman who states she has had a 30 year history of intermittent lower abdominal pain with bloating and fever. She states that she was diagnosed with diverticulitis approximately 25 years ago. She does not recall any specific studies being performed at that time. Since that diagnosis she has had one to two episodes a year of left lower abdominal pain associated with bloating and fever. She also reports constipation and diminished flatus with these episodes. She has never been hospitalized for these symptoms. She has been taking her 's antibiotics for the approximately the last two years when these episodes arise. The last time she saw a physician for these symptoms was approximately one year ago. She denies any colonoscopy or other GI study in the last approximately 15 years. She reports intermittent reflux symptoms. PAST MEDICAL HISTORY: Significant for anemia, rheumatic fever, and rheumatic heart disease. PAST SURGICAL HISTORY: 1. Laparoscopic cholecystectomy 1994. 2. Total abdominal hysterectomy and unilateral salpingo-oophorectomy in . 3. Open appendectomy . FAMILY HISTORY: Patient reports a family history of cancer, although she denies any family history of colon or rectal cancer. MEDICATIONS: 1. Iron daily. 2. Multivitamin daily. 3. Calcium and Vitamin C daily. ALLERGIES: Patient reports rash with iodine and seafood. She also reports dystonic reaction to Promethazine. PHYSICAL EXAMINATION: GENERAL: The patient is alert and oriented x 3, in no acute distress. HEENT: Reveals pupils to be equal, round, reactive to light and accommodation. NECK: Supple without lymphadenopathy. Oral mucosa is pink, moist, and not broken. LUNGS: Clear to auscultation bilaterally. HEART: Regular rate and rhythm with loud systolic ejection murmur audible in all positions. ABDOMEN: Soft with slight bilateral lower quadrant tenderness to deep palpation. There are normal bowel tones. There are no masses or organomegaly palpated. EXTREMITIES: No cyanosis, clubbing, or edema. NEUROLOGIC: Cranial nerves II-XII are grossly intact. There are no gross extremity deficits. ASSESSMENT: The patient is a 68-year-old female who presents with a history suggestive of diverticulosis with episodes of diverticulitis. However, she has not had any significant work-up in several years. Given her reported history of anemia and lower GI symptoms, I feel it would be prudent for her to undergo further GI evaluation. The patient states that she does not currently have a primary care provider, and she expresses some dissatisfaction with her previous health care providers in her local area. PLAN: 1. The patient is referred to the gastroenterology clinic for evaluation. We would suggest colonoscopy, although we would leave this up to the discretion of the gastroenterology service. 2. We will see the patient after she has been evaluated by the gastroenterology service and has had any appropriate tests or exams performed. 3. Patient will have labs drawn today in anticipation of her GI Clinic visit. In particular, we are interested in her red blood cell count, given her history of anemia and lower abdominal symptoms. Shan Mccall M.D. Resident, Surgery Mukund Del Rosario M.D. Recycling Collections Driver, General Surgery CORI/bonifacio d ocumented in this encounter Plan of Treatment Not on filedocumented as of this encounter Visit Diagnoses Not on filedocumented in this encounter"
--- OUTSIDE RECORDS SUMMARY | ~2020-07-28 | XMS | Encounter Summary ---
Demographics + + + | Address | [address] | | | [place] [address] | + + + | Home Phone | | + + + | Preferred Language | Unknown | + + + | Marital Status | | + + + | Buddhist Affiliation | Unknown | + + + [...] + | Michael Ross | [place] | [address] | | | | | [place] | | | | | [address] | | + + + + + Care Team Providers + +------+ + | Care Zoning Engineer Name | Role | Phone | + +------+ + PCP | Unavailable | + +------+ + Encounter Details +--------+ + + + + | Date | Type | Department | Care Team | Description | +--------+ + + + + | 01/14/ | Discharge | | Summary, Discharge | D/C Summary ODDS | | 1999 | Summary-Tra | | | | | | nscribed | | | | +--------+ + + [...] + + documented as of this encounter Discharge Summaries Interface, Dynamic 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 PRINCIPAL FINAL DIAGNOSIS: Diverticular disease. ADDITIONAL DIAGNOSES: Bladder injury. PRINCIPAL PROCEDURE: Laparoscopic left hemicolectomy and bladder repair. ADDITIONAL PROCEDURES: Urology consultation. REASON FOR ADMISSION: The patient is a 68-year-old female with diverticulosis, with increasing frequency of diverticulitis. She has been taking p.o. antibiotics on and off for two years and now has continual left lower quadrant abdominal pain with episodic diarrhea. 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 PAST MEDICAL HISTORY: 1. Carpal tunnel syndrome. 2. History of radius fracture. 3. Total abdominal hysterectomy. 4. History of rheumatic fever. ALLERGIES: Iodine and promethazine. BLEEDING DYSCRASIAS: None. CURRENT MEDICATIONS: None. REVIEW OF SYSTEMS: Unremarkable. PHYSICAL EXAMINATION: Physical examination was remarkable for left lower quadrant tenderness. No palpable masses. There is a IV/ systolic ejection murmur. HOSPITAL COURSE: The patient was taken to the Operating Room on 01/09/99 and underwent a laparoscopic sigmoid colectomy. She also had an intraoperative bladder injury requiring an intraoperative Urology consult for a cystoscopy with subsequent bladder repair. Postoperatively, the patient did well. She started passing gas on postoperative day #3 and was ambulating well at this time. The Urology consult wanted us to leave the Caballero catheter in for a total of 10 days. They will have her follow up in their clinic at that time, at which time they will discontinue the Caballero catheter and send her home on Bactrim DS after pulling the Caballero and then for two more days. The patient was discharged on postoperative day #5, doing well, eating a regular diet. CONDITION ON DISCHARGE: Stable. DISCHARGE MEDICATION(S): 1. Vicodin 1-2 p.o. q. 4-6 hours p.r.n. 2. Colace 100 mg p.o. b.i.d. DISCHARGE INSTRUCTION(S): 1. Activity: No lifting of greater than 10 pounds. 2. Diet: Normal. 3. Follow-up: The patient is to follow up in the General Surgery Clinic in three weeks and the Urology Clinic in one week. Jason Moore M.D. Mukund Del Rosario M.D. ADJ/chico P cc: BRANDYN VOGEL MD [address] [place] [id number] Grover Rocha M.D. ([facility]) docume nted in this encounter Plan of Treatment Not on filedocumented as of this encounter Visit Diagnoses Not on filedocumented in this encounter"
--- OUTSIDE RECORDS SUMMARY | ~2020-07-28 | XMS | Encounter Summary ---
Demographics + + + | Address | [address] | | | [place] [address] | + + + | Home Phone [...] + + + | Author | [facility] | + + + | Organization | [facility] | + + + | Address | Unknown | + + + | Phone | Unavailable | + + + Support + + + + + | Name | Relationship | Address | Phone | + + + + + | Michael Ross | ECON | [address] | | | | | [place] | | | | | [phone] | | + + + + + Care Team Providers + +------+ + | Care Web Database Developer Name | Role | Phone | + [...] [id number] | | | | | | [place], [place] | | | | | | [address] | | | | | | [phone] | | | +--------+ + + + [...] | + + + + + | [facility] | [address] | [place] [address] | | | PATHOLOGY | [address] [...] | + + + + + | [facility] | [address] | [place] [address] | | | PATHOLOGY | [address] [...] | + + + + + | [facility] | [address] | [place] [address] | | | PATHOLOGY | [address] [...] | + + + + + | [facility] | [address] | [place], [place] [address] | | | PATHOLOGY | [address] [...] | + + + + + | [facility] | [address] | [place] [address] | | | PATHOLOGY | [address] [...] | + + + + + | [facility] | [address] | [place] [address] | | | PATHOLOGY | [address] [...] | + + + + + | [facility] | [address] | [place] [address] | | | PATHOLOGY | [address] [...] | + + + + + | [facility] | [address] | [place] [address] | | | PATHOLOGY | [address] | | | + + + + + documented in this encounter Visit Diagnoses Not on filedocumented in this encounter"
--- OUTSIDE RECORDS SUMMARY | ~2020-07-28 | XMS | Encounter Summary ---
Demographics + + + | Address | [address] | | | [place] [address] | + + + | Home Phone | | + + + | Preferred Language | Unknown | + + + | Marital Status | | + + + | Baptist Affiliation | Unknown | + + + | Race | White | + + + | Ethnic Group | Not or | + + + Author + + + | Author | [facility] | + + + | Organization | [facility] | + + + | Address | Unknown | + + + | Phone | Unavailable | + + + Support + + + + + | Name | Relationship | Address | Phone | + + + + + | Michael Ross | ECON | [address] | | | | | [place] | | | | | [address] | | + + + + + Care Team Providers + +------+ + | Care Comfort Station Supervisor Name | Role | Phone | [...] as of this encounter Progress Notes Interface, Waxer In - 10/15/2006 5:08 AM PSTCLINIC DATE: [...] M.D. Resident, Surgery Mukund Del Rosario M.D. Chief Operations Officer, General Surgery CORI/bonifacio d ocumented in this encounter Plan of Treatment Not on filedocumented as of this encounter Visit Diagnoses Not on filedocumented in this encounter"
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
--- OUTSIDE RECORDS SUMMARY | ~2020-07-28 | XMS | Encounter Summary ---
Demographics + + + | Address | [address] | | | [place] [address] | + + + | Home Phone | | + + + | Preferred Language | Unknown | + + + | Marital Status | | + + + | Pentecostalism Affiliation | Unknown | + + + [...] + | Michael Ross | ECON | [address] | | | | | [place] | | | | | [address] | | + + + + + Care Team Providers + +------+ + | Care Environmental Studies Program Director Name | Role | Phone | + +------+ + PCP | Unavailable | + +------+ + Encounter Details +--------+ + + + + | Date | Type | Department | Care Team | Description | +--------+ + + + + | 09/25/ | Office | [facility] | Note, [...] as of this encounter Progress Notes 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 Mukund Del Rosario of general surgery. She is a patient with recurrent diverticulitis and left-sided abdominal pain. She is referred for evaluation of her left-sided abdominal pain and recurrent diverticulitis. She has recently undergone an air contrast barium enema, which shows that there no lesions in her colon except for moderate left-sided diverticulosis. She has recently undergone, by me, a flexible sigmoidoscopy to clear the left side of the colon for any clonic neoplasm that could have been obscured on the air contrast barium enema. The flexible sigmoidoscopy was done only to 30 cm, and was stopped at that point due to excessive tortuosity and looping of the instrument, as well as patient intolerance. However, no mass or lesions were noted. ASSESSMENT: It would not be unreasonable, because of her history of recurrent diverticulitis and left-sided diverticulosis with left lower abdominal pain that have been persistent, that she undergo surgical resection of this area to help with her symptoms. PLAN: 1. She will return to Dr. Mukund Del Rosario for further consultation and see if this would be a reasonable option for her. 2. At this point, there is no further GI workup needed and she will return to Dr. Mukund Del Rosario's care. Elfego Stokes M.D Manufacturing Engineerheel cementer machine Gastroenterology ANSELMO/genevieve cc: Mukund Del Rosario M.D. Electromechanical Inspector, General Surgery documented in this encounter Plan of Treatment Not on filedocumented as of this encounter Visit Diagnoses Not on filedocumented in this encounter"
--- OUTSIDE RECORDS SUMMARY | ~2020-07-28 | XMS | Encounter Summary ---
Demographics + + + | Address | [address] | | | [place] [address] | + + + | Home Phone | | + + + | Preferred Language | Unknown | + + + | Marital Status | | + + + | Mormonism Affiliation | Unknown | + + + | Race | White | + + + | Ethnic Group | Not or | + + + Author + + + | Author | [facility] | + + + | Organization | [facility] | + + + | Address | Unknown | + + + | Phone | Unavailable | + + + Support + + + + + | Name | Relationship | Address | Phone | + + + + + | Michael Ross | ECON | [address] | | | | | [place] | | | | | [address] | | + + + + + Care Team Providers + +------+ + | Care Parts Clerk Name | Role | Phone | + +------+ + PCP | Unavailable | + +------+ + Encounter Details +--------+ + + + + | Date | Type | Department | Care Team | Description | +--------+ + + + + | 12/15/ | Office | [facility] | Note, [...] as of this encounter Progress Notes Interface, Dining Room Maid In - 10/04/2006 3:10 AM PSTCLINIC DATE: 12/15/1998 GENERAL SURGERY CLINIC: HISTORY OF PRESENT ILLNESS: This patient is a 68-year-old white female with diverticular disease. She has had increasing frequency of her diverticulitis. She has taken oral antibiotics for the past two to three years on and off. She now has continual left lower quadrant abdominal pain and episodic diarrhea. She was found on colonoscopy to have stricture at 30 cm. She was originally scheduled for surgery in early October. However, due to the unfortunate of her she has opted to reschedule her surgery at this time. PAST MEDICAL HISTORY: Carpal tunnel syndrome. History of radius ulnar fracture. SOCIAL HISTORY: Total abdominal hysterectomy. ALLERGIES: Iodine. Promethazine. PREVIOUS ILLNESS: History of rheumatic fever. CURRENT MEDICATIONS: None. REVIEW OF SYSTEMS: No chest pain, shortness of breath, nausea, vomiting, fevers, chills, diabetes. PHYSICAL EXAM: HEENT: Normocephalic, atraumatic. Oropharynx is moist. NECK: No lymphadenopathy. No carotid bruits. LUNGS: Clear to auscultation bilaterally. HEART: Regular rate and rhythm with loud systolic ejection murmur which radiates throughout the precordium. ABDOMEN: Tender in the left lower quadrant. No palpable mass. BACK: No CVA tenderness. EXTREMITIES: Warm. NEUROLOGIC: Grossly intact. ASSESSMENT: This is a 68-year-old woman with chronic diverticular disease with multiple episodes of diverticulitis who now presents for elective left hemicolectomy. PLAN: She will be seen in the [facility] on January 08. Then on January 09 she will undergo an attempted laparoscopic left hemicolectomy. We discussed with her the possibility that this could not be done laparoscopically and intraoperatively may have to be converted to an open operation. She was also told of the risk of having a temporary colostomy if, at the time of surgery, the bowel was found to be unsuitable for anastomosis. She was given Neomycin, Erythromycin, and magnesium citrate for a bowel prep. We will plan to admit her on the morning of surgery, January 09, 1999. Anai Melendez M.D. Mukund Del Rosario M.D. Hector Mitchell M.D. JERE:[id number] cc: Elfego Stokes M.D. Gastroenterology documented in this encounter Plan of Treatment Not on filedocumented as of this encounter Visit Diagnoses Not on filedocumented in this encounter"
--- OUTSIDE RECORDS SUMMARY | ~2020-07-28 | XMS | Encounter Summary ---
Demographics + + + | Address | [address] | | | [place] [address] | + + + | Home Phone | | + + + | Preferred Language | Unknown | + + + | Marital Status | | + + + | Lutheran Affiliation | Unknown | + + + [...] + | Michael Ross | ECON | [address] | | | | | [place] | | | | | [address] | | + + + + + Care Team Providers + +------+ + | Care Pug Mill Operator Name | Role | Phone | + +------+ + PCP | Unavailable | + +------+ + Encounter Details +--------+ + + + + | Date | Type | Department | Care Team | Description | +--------+ + + + + | 10/15/ | Office | [facility] | Note, [...] as of this encounter Progress Notes Interface, Emergency Care Tech In - 10/09/2006 3:07 AM PSTCLINIC DATE: 10/15/1998 GENERAL SURGERY CLINIC SUBJECTIVE: The patient is a 68-year-old white female who has a long-standing history of diverticulitis, and who, for approximately the past two years, has been on and off antibiotics. She has never been hospitalized for diverticulitis but has practically chronic lower abdominal pain. OBJECTIVE: A colonoscopy was done which revealed a stricture at approximately 30 cm, and a barium enema was done which showed diverticulosis up to the descending colon down through the sigmoid colon, with a few diverticula in the ascending colon. She has some partial colonic obstructive symptoms as well and presents for hemicolectomy for diverticulosis. The patient also complains of urinary incontinence. ASSESSMENT/PLAN: We are going to refer her to the Urology Clinic for workup of this urinary incontinence and to have them get to know her, so they can place a ureteral stent on the left side when we take her to the operating room for a hemicolectomy. Her , in the meantime, is going to have a splenectomy done by our service, and he needs to recover from that before we do her surgery, and that is the current plan. She will also go to [facility] in the meantime and will have her tests performed, and will then be scheduled for surgery approximately two weeks after her , Mr. Grover Laguerre. Please see the History and Physical in the chart for any more details. Hector Ovalle M.D. Fellow, Division of General Surgery Mukund Del Rosario M.D. Space And Storage Clerk, General Surgery DELROY/luli d ocumented in this encounter Plan of Treatment Not on filedocumented as of this encounter Visit Diagnoses Not on filedocumented in this encounter"
--- OUTSIDE RECORDS SUMMARY | ~2020-07-28 | XMS | Encounter Summary ---
Demographics + + + | Address | [address] | | | [place] [address] | + + + | Home Phone | | + + + | Preferred Language | Unknown | + + + | Marital Status | | + + + | Jainism Affiliation | Unknown | + + + | Race | White | + + + | Ethnic Group | Unknown | + + + Author + + + | Author | [facility] | | | and [place] | + + + | Organization | [facility] | | | and [place] | + + + | Address | Unknown | + + + | Phone | Unavailable | + + + Support + + + + + | Name | Relationship | Address | Phone | + + + + + | Stephanie Ross | ECON | [address] | | | | | [place] | | | | | [address] | | + + + + + Care Team Providers + +------+ + | Care Curing Finisher Name | Role | Phone | [...] | | Radiology | [facility] | | | | | [facility] | RUBBER PRINTING MACHINE OPERATOR [address] | [address] | | | | | replacement | DAVIDS | [address] | | | | | with | [address] | [place] | | | | | bioprostheti | [place], [place] | [address] | | | | | c valve | [address] | Phone: | | | | | Aortic | Phone: | [phone] | | | | | stenosis due | [phone] | Fax: | | | | | to bicuspid | Fax: | [phone] | | | | | aortic | [phone] | | | | | | valve | | | | | | | Ascending | | | | | | | aorta | | | | | | | dilatation | | | | | | | ([facility]) | | | | | | | [...] | | | | | | | (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); History of | | | | | | rheumatic fever as a | | | | | | child; PMR | | | | | | (polymyalgia | | | | | | rheumatica) (HCC); | | | | | | Rheumatic mitral | | | | | | stenosis; Diastolic | | | | | | CHF, chronic ([facility]) | +--------+---------+ + + + Social History [...] you fasting labs to be done at [facility] in October , and also ordered you an Echo to be done at [facility] I made these changes to medications : [...] of Dr. Gallegos who is her primary identification officer, and last seen by him 09/28 18. [...] life. She continues to be followed by hepatology physician, Dr.Leslie Ham in [place] who sta rted her on prednisone 10 [...] today, and personally reviewed by me Her iancnlqc-vu-rao had previously reported she can be intermittent [...] rheumatica followed by Dr. Merly Ham in [place], osteoarthr itis with polyarthralgias, osteoporosis. Reports all [...] yard work and tolerate s. Lives in [place]. Outpatient Medications Prior to Visit Medication Sig [...] except for lateral leads. Rate 58 bpm, MS 180 ms, QRS 92 ms, QTC 441 ms, tracing personal ly reviewed by me EK02/19/2019 (metoprolol XL 25 mg): Normal sinus rhythm, old anterior OR low voltage QRS. Rate 63 bpm, MS 182 ms, QRS 88 ms, QTC 427 [...] & PLAN: She was here with her [id number]-[id number] for 3-month follow-up, on CMP and lipid [...] labs in detail with her and her [id number]-[id number], and discuss ed with them her lipids [...] contain inadvertent rec ognition errors. Zelda SIDDIQUI [facility] Cardiology 08/13/2019 docume nted in this [...]
--- OUTSIDE RECORDS SUMMARY | ~2020-07-28 | XMS | Encounter Summary ---
Demographics + + + | Address | [address] | | | [place] [address] | + + + | Home Phone [...] + + + | Author | [facility] | + + + | Organization | [facility] | + + + | Address | Unknown | + + + | Phone | Unavailable | + + + Support + + + + + | Name | Relationship | Address | Phone | + + + + + | Michael Ross | ECON | [address] | | | | | [place] | | | | | [address] | | + + + + + Care Team Providers + +------+ + | Care Sanding Machine Operator Name | Role | Phone | + +------+ + PCP | Unavailable | + +------+ + Encounter Details +--------+ + + + + | Date | Type | Department | Care Team | Description | +--------+ + + + + | 01/19/ | Office | [facility] | Note, [...] as of this encounter Progress Notes Interface, Tube Sizer And Cutter Operator In - 10/01/2006 5:11 AM PSTCLINIC DATE: 01/19/1999 UROLOGY CLINIC PREPROCEDURE DIAGNOSIS: Accidental laceration of bladder intraoperatively, post repair. POSTPROCEDURE DIAGNOSIS: 1. Same: No evidence of persistent urinary extravasation. 2. Incidental female stress urinary incontinence. PROCEDURE: Fluoroscopic cystourethroscopy. INDICATIONS: Patient recently underwent laparoscopic abdominal surgery for diverticular disease. During that procedure, her bladder was accidentally injuring, requiring open repair. She has had a catheter in place for approximately 10 days and returns for followup and removal of the catheter. FINDINGS: Smooth wall bladder with no evidence of post-repair extravasation. Incidental entrance obstructed deficiency with female stress urinary incontinence. DISCRIPTION OF PROCEDURE: The patient is identified and placed on the table in a supine position. Her urethral catheter was connected to a bottle of Cystografin and her body was allowed to fill up by gravity to approximately 200 mg. She was feeling a strong urge at this point. Imaging was completed in AP and semioblique positions and then the bladder was drained and imaging completed once again to confirm the absence of any extravasation. The bladder was then refilled and the catheter removed. In the upright position, imaging was completed in AP and semioblique position with and without Valsalva efforts, and the bladder emptying process observed to completion. She emptied essentially all the contents of her bladder except for 1 mm or 2 mm. She tolerated the procedure well with no early complications. She will take Septra DS one tablet b.i.d. for a week. We have advised her to call in approximately one week to let us know how she is doing as far as her voiding function goes. In the event that she wishes further evaluation and treatment of what seems to be fairly significant stress incontinence, she is welcome to call us and make those arrangements. These followups are issued and include urodynamics but not until her bladder has had a chance to heal completely, perhaps three months from the injury. Nicholas Fleming M.D. Maddy C: 01/23/1999 fatoumata cc: [facility] SURGERY documented in this encounter Plan of Treatment Not on filedocumented as of this encounter Visit Diagnoses Not on filedocumented in this encounter"
--- OUTSIDE RECORDS SUMMARY | ~2020-07-28 | XMS | Encounter Summary ---
Demographics + + + | Address | [address] | | | [place] [address] | + + + | Home Phone | | + + + | Preferred Language | Unknown | + + + | Marital Status | | + + + | Voodoo Affiliation | Unknown | + + + | Race | White | + + + | Ethnic Group | Not or | + + + Author + + + | Author | [facility] | + + + | Organization | [facility] | + + + | Address | Unknown | + + + | Phone | Unavailable | + + + Support + + + + + | Name | Relationship | Address | Phone | + + + + + | Michael Ross | ECON | [address] | | | | | [place] | | | | | [address] | | + + + + + Care Team Providers + +------+ + | Care Deck Cadet Name | Role | Phone | + +------+ + PCP | Unavailable | + +------+ + Encounter Details +--------+ + + + + | Date | Type | Department | Care Team | Description | +--------+ + + + + | 01/09/ | Documentati | NON-[facility] EPIC | Unknown . | | | 2020 | on | Department | | | +--------+ + + + [...]
--- OUTSIDE RECORDS SUMMARY | ~2020-07-28 | XMS | Encounter Summary ---
Demographics + + + | Address | [address] | | | [place] [address] | + + + | Home Phone | | + + + | Preferred Language | Unknown | + + + | Marital Status | | + + + | Mandaeism Affiliation | Unknown | + + + | Race | White | + + + | Ethnic Group | Unknown | + + + Author + + + | Author | [facility] | | | and [place] | + + + | Organization | [facility] | | | and [place] | + + + | Address | Unknown | + + + | Phone | Unavailable | + + + Support + + + + + | Name | Relationship | Address | Phone | + + + + + | Stephanie Ross | ECON | [address] | | | | | [place] | | | | | [address] | | + + + + + Care Team Providers + +------+ + | Care Tobacco Weigher Name | Role | Phone | + +------+ + PCP | Unavailable | + +------+ + Encounter Details +--------+ + + + + | Date | Type | Department | Care Team | Description | +--------+ + + + + | 11/02/ | Orders Only | [facility] | Alan Gallegos, | | | 2019 | | CARDIOLOGY [place] | [address] | | | | | [address] | [address] [place], | | | | | [place], [place] | [place] [address] | | | | | [address] | [phone] | | | | | [phone] | | | +--------+ + + + [...] | + +--------+ + + + | LIPID PANEL | Routin | 11/02/2018 | | Results for this | | | e | 9:34 AM | | procedure are in the | | | | PST | | results section. | + +--------+ + + + documented in this encounter Results Lipid Panel (11/02/2018 9:34 AM PST) + +---------+ + + + | Component | Value | Ref Range | Performed | Pathologist | | | | | At | Signature | + +---------+ + + + | Cholesterol | 197 | 200 mg/dL | EXTERNAL | | | | | | LAB | | + +---------+ + + + | Triglycerid | 104 | 30 - 150 mg/dL | EXTERNAL | | | es | | | LAB | | + +---------+ + + + | HDL | 49.5 | 40 mg/dl | EXTERNAL | | | | | | LAB | | + +---------+ + + + | LDL, | 127 (A) | 100 mg/dL | EXTERNAL | | | Calculated | | | LAB | | + +---------+ + + + | LDl/HDL | 4.0 | 4.44 | EXTERNAL | | | Ratio | | | LAB | | + +---------+ + + + | Chol/HDL | | | EXTERNAL | | | Ratio | | | LAB | | + +---------+ + + + | VLDL | 21 | 4 - 40 mg/dL | EXTERNAL | | | | | | LAB | | + +---------+ + + + | Non HDL | 148 (A) | 130 | EXTERNAL | | | Chol. | | | LAB | | | (LDL+VLDL) | | | | | + +---------+ + + + + + | Specimen | + + | Blood specimen | | (specimen) | + + + +---------+ + + | Performing | Address | City/State/Zipcode | Phone Number | | Organization | | | | + +---------+ + + | EXTERNAL LAB | | | | + +---------+ + + documented in this encounter Visit Diagnoses Not on filedocumented in this encounter"
--- OUTSIDE RECORDS SUMMARY | ~2020-07-28 | XMS | Encounter Summary ---
Demographics + + + | Address | [address] | | | [place] [address] | + + + | Home Phone [...] + | Michael Ross | [place] | [address] | | | | | [place] | | | | | [address] | | + + + + + Care Team Providers + +------+ + | Care Surgical Scrub Technician Name | Role | Phone | [...] as of this encounter Discharge Summaries Interface, Hardware Developer In - 10/01/2006 5:[address] [address] [facility] MEDICAL SUMMARY OF HOSPITALIZATION Med Rec No: [...] ADJ/chico P cc: BRANDYN VOGEL MD [address] [place] [address] Grover Rocha M.D. ([facility]) docume nted in this encounter Plan of Treatment Not on filedocumented as of this encounter Visit Diagnoses Not on filedocumented in this encounter"
--- OUTSIDE RECORDS SUMMARY | ~2020-07-28 | XMS | Encounter Summary ---
Demographics + + + | Address | [address] | | | [place] [address] | + + + | Home Phone | | + + + | Preferred Language | Unknown | + + + | Marital Status | | + + + | Roman Catholic Affiliation | Unknown | + + + | Race | White | + + + | Ethnic Group | Not or | + + + Author + + + | Author | [facility] | + + + | Organization | [facility] | + + + | Address | Unknown | + + + | Phone | Unavailable | + + + Support + + + + + | Name | Relationship | Address | Phone | + + + + + | Michael Ross | ECON | [address] | | | | | [place] | | | | | [address] | | + + + + + Care Team Providers + +------+ + | Care Vice President Sales And Marketing Name | Role | Phone | + [...] as of this encounter ED Notes Interface, Credit Analyst In - 10/09/2006 3:07 AM PSTDATE OF SERVICE: 11/05/18 99 PRIMARY CARE PROVIDER: None. CHIEF COMPLAINT: High blood pressure. HISTORY OF PRESENT ILLNESS: Ms. Laguerre is a 68-year-old female who has a past medical history notable for valvular heart disease. She was sent over to the emergency department from the [facility] by the nurses on the floor after her blood pressure was checked and noted to be 200/104. The patient has been staying at the [place] over the last three weeks, as her [...] awaiting surgical intervention via Dr. Del Rosario [facility]. 2. Status post total abdominal hysterectomy. 3. [...] with a new primary care provider in [place], [place]. CLINICAL IMPRESSION 1. Hypertension. 2. Anxiety, [...] Sanchez M.D. Manpreet Hollingsworth M.D. G / [id number] / [id number] / documented in this encounter Plan of Treatment Not on filedocumented as of this encounter Visit Diagnoses Not on filedocumented in this encounter
--- OUTSIDE RECORDS SUMMARY | ~2020-07-28 | XMS | Encounter Summary ---
Demographics + + + | Address | [address] | | | [place] [address] | + + + | Home Phone | | + + + | Preferred Language | Unknown | + + + | Marital Status | | + + + | Synagogue Affiliation | Unknown | + + + [...] + | Michael Ross | [place] | [address] | | | | | [place] | | | | | [address] | | + + + + + Care Team Providers + +------+ + | Care Cost Accounting Clerk Name | Role | Phone | + +------+ + PCP | Unavailable | + +------+ + Encounter Details +--------+ + + + + | Date | Type | Department | Care Team | Description | +--------+ + + + + | 01/19/ | Results | | Nicholas Fleming | | | 1998 | Only | | [address] | | | | | | [address] | | | | | | [place] [address] | | | | | | [phone] | | | | | | | [...]
--- OUTSIDE RECORDS SUMMARY | ~2020-07-28 | XMS | Encounter Summary ---
Demographics + + + | Address | [address] | | | [place] [address] | + + + | Home Phone | | + + + | Preferred Language | Unknown | + + + | Marital Status | | + + + | Zoroastrian Affiliation | Unknown | + + + | Race | White | + + + | Ethnic Group | Unknown | + + + Author + + + | Author | [facility] | | | and [place] | + + + | Organization | [facility] | | | and [place] | + + + | Address | Unknown | + + + | Phone | Unavailable | + + + Support + + + + + | Name | Relationship | Address | Phone | + + + + + | Stephanie Ross | ECON | [address] | | | | | [place] | | | | | [address] | | + + + + + Care Team Providers + +------+ + | Care Grinder Machine Knife Setter Name | Role | Phone | + +------+ + PCP | Unavailable | + +------+ + Encounter Details +--------+ + + + + | Date | Type | Department | Care Team | Description | +--------+ + + + + | 03/14/ | [facility] | [facility] | Ernestina Love MD | Congestive Heart | | 2006 - | Encounter | [facility] | [address] | [facility] | | | | CARE FLOOR [address] | [place] [address] | | | 03/27/ | | [address] | [phone] | | | 2005 | | [place], [place] | | | | | | [address] | | | | | | [phone] | | | +--------+ + + + [...]
--- OUTSIDE RECORDS SUMMARY | ~2020-07-28 | XMS | Encounter Summary ---
Demographics + + + | Address | [address] | | | [place] [address] | + + + | Home Phone | | + + + | Preferred Language | Unknown | + + + | Marital Status | | + + + | Spiritism Affiliation | Unknown | + + + | Race | White | + + + | Ethnic Group | Unknown | + + + Author + + + | Author | [facility] | | | and [place] | + + + | Organization | [facility] | | | and [place] | + + + | Address | Unknown | + + + | Phone | Unavailable | + + + Support + + + + + | Name | Relationship | Address | Phone | + + + + + | Stephanie Ross | [place] | [address] | | | | | [place] | | | | | [address] | | + + + + + Care Team Providers + +------+ + | Care Recoater Name | Role | Phone | + [...] Provider Unknown | | | | | [place], [place] | [phone] | | | | | [address] | | | | | | [phone] | | | +--------+ + + + [...]
--- OUTSIDE RECORDS SUMMARY | ~2020-07-28 | XMS | Encounter Summary ---
Demographics + + + | Address | [address] | | | [place] [address] | + + + | Home Phone | | + + + | Preferred Language | Unknown | + + + | Marital Status | | + + + | Jain Affiliation | Unknown | + + + | Race | White | + + + | Ethnic Group | Not or | + + + Author + + + | Author | [facility] | + + + | Organization | [facility] | + + + | Address | Unknown | + + + | Phone | Unavailable | + + + Support + + + + + | Name | Relationship | Address | Phone | + + + + + | Michael Ross | ECON | [address] | | | | | [place] | | | | | [address] | | + + + + + Care Team Providers + +------+ + | Care Framing Carpenter Name | Role | Phone | + +------+ + PCP | Unavailable | + +------+ + Encounter Details +--------+ + + + + | Date | Type | Department | Care Team | Description | +--------+ + + + + | 07/12/ | Procedure - | UNKNOWN DEPARTMENT | Other, Faculty | EEG | | 1996 | | [address] [facility] | [phone] | | | | Transcribed | [address] | | | | | | [place], [place] | | | | | | [address] | | | +--------+ + + + [...] DATE: 07/11 Log #[id number] CLINICAL COMMENTS: This xkobv-byma-dzlq-old woman broke her distal radius in April [...] when one compared to the right median wefp-um-mhaji sensory nerve conduction velocity with the right ulnar iseb-hc-ufijh sensory nerve conduction study there is a significant slowing in the median nerve. Needle electromyography of the right abductor pollices brevis is normal. IMPRESSION: Mild right median mononeuropathy at the wrist consistent with the clinical diagnosis of mild right carpal tunnel syndrome. Dottie Guevara M.D. Clinical Instructor, Neurology Brianna Lubin M.D., F.R.C.P.C. Moisture Conditioner Operator, Neurology FRE/cf documented in this encou nter Plan of [...] CLINICAL COMMENTS: | | | | This lpurb-pchh-nicg-old woman broke her distal radius in April [...] when one compared to the right median xakj-ln-zvgvr sensory nerve conduction | | velocity with the right ulnar mupu-ib-pouyr sensory nerve conduction study | | there [...] | Brianna Lubin M.D., F.R.C.P.C. | | Moisture Conditioner Operator, Neurology | | | | FER/cf | | | | | | | + + documented in this encounter Visit Diagnoses Not on filedocumented in this encounter"
--- OUTSIDE RECORDS SUMMARY | ~2020-07-28 | XMS | Encounter Summary ---
Demographics + + + | Address | [address] | | | [place] [address] | + + + | Home Phone | | + + + | Preferred Language | Unknown | + + + | Marital Status | | + + + | Mandaen Affiliation | Unknown | + + + [...] + | Michael Ross | [place] | [address] | | | | | [place] | | | | | [address] | | + + + + + Care Team Providers + +------+ + | Care Skip Miner Blasting Name | Role | Phone | + +------+ + PCP | Unavailable | + +------+ + Encounter Details +--------+ + + + + | Date | Type | Department | Care Team | Description | +--------+ + + + + | 04/15/ | Results | | Nicholas Fleming | | | 1998 | Only | | [address] | | | | | | [address] | | | | | | [place] [address] | | | | | | [phone] | | | | | | | [...] | + +--------+ + + + | X-RAY HYDRODYNAMIC | Routin | 04/15/1999 | | Results for this | | VOIDING | e | 2:00 PM | | procedure are in the | | CYSTOURETHROGRAM | | PDT | | results section. | | ([facility]) | | | | | + +--------+ + + + documented in this encounter Results CYSTOGRAM, VOIDING W/HYDRODYN (04/15/1999 2:00 PM PDT) + + + + + + | Component | Value | Ref Range | Performed | Pathologist | | | | | At | Signature | + + + + + + | HYDRODYNAMI | Radiologist 1: | | | | | [facility] | GARRETT MAX, | | | | | | Sri VOIDING | | | | | | CYSTOURETHROGRAM WITH | | | | | | HYDRODYNAMICS: 04/15/99 | | | | | | at 1400 hours. | | | | | | Dictated 04/15/99 | | | | | | Lonnie from urology | | | | | | performed a voiding | | | | | | cystogram | | | | | | withhydrodynamics. | | | | | | FINDINGS: Images show a | | | | | | smooth bladder contour, | | | | | | no vesicoureteralreflux, | | | | | | funneling during | | | | | | valsalva, and no | | | | | | significant | | | | | | post-voidresidual. | | | | | | IMPRESSION: Voiding | | | | | | cystourethrogram with | | | | | | hydrodynamics performed | | | | | | by Dr. Fleming;he will | | | | | | report his findings | | | | | | separately. END OF | | | | | | IMPRESSION: | | | | + + + + + + + + | Specimen | + + | | + + + +---------+ + + | Performing | Address | City/State/Zipcode | Phone Number | | Organization | | | | + +---------+ + + | [place] [facility] | | | | | RADIOLOGY | | | | + +---------+ + + documented in this encounter Visit Diagnoses Not on filedocumented in this encounter"
--- OUTSIDE RECORDS SUMMARY | ~2020-07-28 | XMS | Encounter Summary ---
Demographics + + + | Address | [address] | | | [place] [address] | + + + | Home Phone [...] + | Michael Ross | [place] | [address] | | | | | [place] | | | | | [address] | | + + + + + Care Team Providers + +------+ + | Care Roofing Technician Name | Role | Phone | + +------+ + PCP | Unavailable | + +------+ + Encounter Details +--------+ + + + + | Date | Type | Department | Care Team | Description | +--------+ + + + + | 09/01/ | Results | | Other, Faculty | | | 1997 | Only | | [phone] | | +--------+ + + + + [...] | | + +---------+ + + | [facility] DEPARTMENT OF | | | | | RADIOLOGY | | | | + +---------+ + + documented in this encounter Visit Diagnoses Not on filedocumented in this encounter"
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
--- OUTSIDE RECORDS SUMMARY | ~2020-07-28 | XMS | Encounter Summary ---
Demographics + + + | Address | [address] | | | [place] [address] | + + + | Home Phone | | + + + | Preferred Language | Unknown | + + + | Marital Status | | + + + | Scientologist Affiliation | Unknown | + + + | Race | White | + + + | Ethnic Group | Unknown | + + + Author + + + | Author | [facility] | | | and [place] | + + + | Organization | [facility] | | | and [place] | + + + | Address | Unknown | + + + | Phone | Unavailable | + + + Support + + + + + | Name | Relationship | Address | Phone | + + + + + | Stephanie Ross | [place] | [address] | | | | | [place] | | | | | [address] | | + + + + + Care Team Providers + +------+ + | Care R Developer Name | Role | Phone | [...] | | | [address] | [place] [address] | | | | | [place] [address] | | | | | | [phone] | | | +--------+ + + + [...] + +--------+ + + + | MRI HIP LEFT WO | Routin | 11/30/2019 | | Results for this | | CONTRAST | e | 12:00 AM | | procedure are in the | | | | PST | | results section. | + +--------+ + + + documented in this encounter Results MRI Hip Left wo Contrast (11/30/2019 12:00 AM PST) + + | Specimen [...]
--- OUTSIDE RECORDS SUMMARY | ~2020-07-28 | XMS | Encounter Summary ---
Demographics + + + | Address | [address] | | | [place] [address] | + + + | Home Phone | | + + + | Preferred Language | Unknown | + + + | Marital Status | | + + + | Congregation Affiliation | Unknown | + + + | Race | White | + + + | Ethnic Group | Not or | + + + Author + + + | Author | [facility] | + + + | Organization | [facility] | + + + | Address | Unknown | + + + | Phone | Unavailable | + + + Support + + + + + | Name | Relationship | Address | Phone | + + + + + | Michael Ross | [place] | [address] | | | | | [place] | | | | | [address] | | + + + + + Care Team Providers + +------+ + | Care Diamond Blender Name | Role | Phone | + +------+ + PCP | Unavailable | + +------+ + Encounter Details +--------+ + + + + | Date | Type | Department | Care Team | Description | +--------+ + + + + | 08/29/ | Office | [facility] | Note, [...] as of this encounter Progress Notes Interface, Freight Car Inspector In - 10/15/2006 5:08 AM PSTCLINIC DATE: 08/29/1998 GASTROENTEROLOGY CLINIC IDENTIFICATION: This is a 68-year-old white female referred by Dr. Mukund Del Rosario for further evaluation of lower abdominal pain. The patient's history is obtained from medical charts and from the patient and her , who are both reliable historians. HISTORY OF PRESENT ILLNESS: This 68-year-old white female states that for the last 35years she has had problems with left lower abdominal pain. She describes this as being intermittent, where she will get the development of a low dull pain in the left lower quadrant that will progress in intensity and she will develop fevers. She has been told in the past that she had diverticulitis. She will then start taking antibiotics, and in two days her symptoms will improve. During this time she will have constipation, no diarrhea. Between these episodes, she will have normal bowel movements. She denies any gastrointestinal bleeding. She says that these occur about twice per year. About 32 years ago she underwent a hysterectomy, and since then she does have a chronic, very low-down, left pelvic pain that at times seems to be associated with these acute bouts of pain. This pain does not wake her up at night. She has noticed over the last couple of years it has increased in frequency and now it occurs three to four times per year. Her last bout was about one month ago. She self-medicates herself with some antibiotics that her gets off and on, which does resolve her symptoms. About 5 to 10 years ago, she actually had a barium enema done that showed sparse left-sided diverticulosis. She denies any weight loss or loss of appetite. She denies any nausea or vomiting. She denies taking any nonsteroidal anti-inflammatory drugs. She has also had a history of right upper quadrant pain, for which she eventually underwent a laparoscopic cholecystectomy in August [address] Mukund Del Rosario, which essentially resolved all of her symptoms. PAST MEDICAL HISTORY: 1. She apparently has a history of anemia and is on iron. Her most recent labs show that she really is not anemic with a normal MCV. 2. She has a history of rheumatic fever and has been noted now to have a murmur. No history of endocarditis. PAST SURGICAL HISTORY: 1. Total abdominal hysterectomy 32 years ago. 2. Status post laparoscopic cholecystectomy in 1994. Histologic report revealed chronic cholecystitis. 3. Status post appendectomy as a child. ALLERGIES/DRUG INTOLERANCES: She has an acute allergic reaction to promethazine. She also has a history of iodine allergy. HABITS: No alcohol or tobacco use. MEDICATIONS: 1. Iron tablet once a day. 2. Multivitamin once a day. 3. As described above, antibiotics p.r.n. SOCIAL HISTORY: She is from [place]. Her children are essentially healthy; one was recently diagnosed with melanoma, however. She currently does not work. FAMILY HISTORY: There is apparently a history of multiple gynecologic tumors in her family. She does not know if there is any colon cancer in her family; however, she suspects that that there is. PHYSICAL EXAMINATION: GENERAL: In no apparent distress. VITAL SIGNS: Blood pressure 130/80, pulse 80, respiratory rate 14. SKIN: Anicteric. NODES: No adenopathy. HEENT: Oropharynx clear. NECK: Supple without adenopathy. LUNGS: Clear to auscultation. CARDIAC: Regular rate and rhythm. A 2/6 systolic ejection murmur is noted. ABDOMEN: Normoactive bowel sounds. Soft, nondistended. There is some specific tenderness in the left lower quadrant and also in the right lower quadrant, otherwise unremarkable. RECTAL: Deferred. EXTREMITIES: No cyanosis, clubbing, or edema. NEUROLOGIC: Nonfocal, without asterixis. LABORATORY DATA: Normal chemistry profile and normal CBC except for a hematocrit that is slightly low at 36.9. DIAGNOSES: 1. Diverticulosis. 1.1. Chronic left lower quadrant pain. It is unclear if the pain is related to her diverticulosis and history of diverticulitis or whether there is some other kind of pathology, namely, cannot rule out colonic neoplasm since there has been an interval worsening of her symptoms. 2. History of rheumatic fever. 3. Status post laparoscopic cholecystectomy in 1994. 4. Status post total abdominal hysterectomy 32 years ago. 5. Status post appendectomy. ASSESSMENT: This is a 68-year-old white female who has had chronic left lower quadrant pain for about 35 years. She has been told that it is from a history of intermittent diverticulitis. Some of her symptoms seem to be consistent with diverticulitis: fevers, change in her bowel habits, and quick resolution on antibiotics. About 5 or 10 years ago she did have a barium enema that showed sparse diverticular disease on the left side. Over the last year or two she has had worsening of her symptoms, more frequent bouts, and now she is here for further evaluation. This still could be just progressively worsening diverticulosis, and this needs to be further evaluated, or there could be another abnormality including stricture secondary to diverticulosis or colonic neoplasm. This needs to be further evaluated. PLAN: 1. We will schedule the patient initially for an air contrast barium enema to assess her extent of diverticulosis. Barium enema is much better at evaluating diverticulosis than colonoscopy. 2. Depending on the results of the barium enema, if it shows just diverticulosis and no evidence of polyps, we will schedule the patient for a flexible sigmoidoscopy to further evaluate the left side of her colon since a barium enema can miss colonic lesions in this area. If there is any evidence of polyps, we will schedule the patient for full colonoscopy to not only look at the left side of the colon, but also for polypectomy or further evaluation of any lesions found on barium enema. 3. I have requested that she begin therapy with fiber supplementation, which she will do. 4. If the above studies are negative, need to consider if she needs a CT scan of the abdomen to look for any other intraabdominal processes. Elfego Stokes M.D. Monitoring Coordinatormarketing operations manager Gastroenterology ANSELMO/sharon cc: Mukund Del Rosario M.D. Director Of Emergency Nursing, General Surgery documented in this encounter Plan of Treatment Not on filedocumented as of this encounter Visit Diagnoses Not on filedocumented in this encounter"
--- OUTSIDE RECORDS SUMMARY | ~2020-07-28 | XMS | Encounter Summary ---
Demographics + + + | Address | [address] | | | [place] [address] | + + + | Home Phone | | + + + | Preferred Language | Unknown | + + + | Marital Status | | + + + | Anabaptist Affiliation | Unknown | + + + | Race | White | + + + | Ethnic Group | Not or | + + + Author + + + | Author | [facility] | + + + | Organization | [facility] | + + + | Address | Unknown | + + + | Phone | Unavailable | + + + Support + + + + + | Name | Relationship | Address | Phone | + + + + + | Michael Ross | [place] | [address] | | | | | [place] | | | | | [address] | | + + + + + Care Team Providers + +------+ + | Care Scouring Train Operator Name | Role | Phone | [...] as of this encounter Progress Notes Interface, Air Sampling And Monitoring In - 10/09/2006 3:07 AM PSTCLINIC DATE: [...] current plan. She will also go to [facility] in the meantime and will have her tests performed, and will then be scheduled for surgery approximately two weeks after her , Mr. Grover Laguerre. Please see the History and Physical in the chart for any more details. Hector Ovalle M.D. Fellow, Division of General Surgery Mukund Del Rosario M.D. Grounds/Maintenance Specialist, General Surgery DELROY/luli d ocumented in this encounter Plan of Treatment Not on filedocumented as of this encounter Visit Diagnoses Not on filedocumented in this encounter"
--- OUTSIDE RECORDS SUMMARY | ~2020-07-28 | XMS | Encounter Summary ---
Demographics + + + | Address | [address] | | | [place] [address] | + + + | Home Phone | | + + + | Preferred Language | Unknown | + + + | Marital Status | | + + + | Yazidi Affiliation | Unknown | + + + | Race | White | + + + | Ethnic Group | Not or | + + + Author + + + | Author | [facility] | + + + | Organization | [facility] | + + + | Address | Unknown | + + + | Phone | Unavailable | + + + Support + + + + + | Name | Relationship | Address | Phone | + + + + + | Michael Ross | [place] | [address] | | | | | [place] | | | | | [address] | | + + + + + Care Team Providers + +------+ + | Care Linux Admin Name | Role | Phone | + +------+ + PCP | Unavailable | + +------+ + Encounter Details +--------+ + + + + | Date | Type | Department | Care Team | Description | +--------+ + + + + | 08/31/ | Procedure - | [facility] | Record, Operation | Operative Report | | 1994 | | Center at [facility] [address] | | | | | Transcribed | [facility] | | | | | | for Health and | | | | | | Healing, [address] | | | | | | [place], [place] | | | | | | [address] | | | | | | [phone] | | | +--------+ + + + [...] documented as of this encounter Procedure Notes Record, Operation - 08/31/1995 12:00 AM PSTAssociated Order(s): OPERATION RECORD [place] [address], [place] [address] [facility] OPERATION RECORD Med Rec No.: [id number] Date: 08/31/95 Name: Yvonne Laguerre ATTENDING SURGEON: Mukund Del Rosario M.D. Warehouse Delivery Driver, General med spa manager(S): Coty Miller M.D. Resident, General Surgery POSTOPERATIVE DIAGNOSIS(ES): Biliary colic. OPERATION(S) PERFORMED: Laparoscopic cholecystectomy with limited intraoperative ultrasound. SPECIMEN(S) REMOVED: Gallbladder. ANESTHESIA: General, with an endotracheal tube. FINDINGS: A few anterior abdominal wall adhesions and normal appearing liver, stomach, pelvic and abdominal organs to a limited exploratory laparotomy. By intraoperative ultrasound there were no lesions noted within the liver or in the adela hepatis. PROCEDURE: The patient was properly identified. She was brought to the Operating Room. General endotracheal anesthesia was administered. She was placed in a comfortable supine position with the right arm tucked. She was straight-catheterized during the prep. Her abdomen was prepped with Hibiclens and alcohol and then draped in the usual sterile fashion. A transverse supraumbilical incision was made and the Veress needle was passed into the abdomen. The abdomen was then insufflated with CO2 to 4.3 liters and a pressure of 14. A Visi-port was used to place our first trocar. This was done without incident. The subsequent three trocars were placed under direct vision. This was all done uneventfully. Graspers were placed. The gallbladder was elevated. There was a smooth peritoneum that was thin walled. The cystic duct could be seen underneath the peritoneum. The peritoneum at the neck of the gallbladder was incised and stripped. The fibroareolar tissue around the gallbladder was then sharply dissected. We identified the cystic artery. After we completely isolated the cystic duct we identified the common duct junction. Two clips were placed proximally on the cystic duct and a single clip was placed on the more distal common duct, towards the gallbladder. The duct was divided. We subsequently isolated the already identified cystic artery and clipped it doubly proximally and singly distally and divided it. The gallbladder was removed from the gallbladder fossa with hook electrocautery. It was then delivered to the subxiphoid port and removed. She had some biliary sludge but no obvious stone. This was passed off for a specimen. The subxiphoid port was then replaced and the clips were inspected. They were all intact and the gallbladder fossa was dry. We irrigated briefly above the liver. We subsequently performed a limited ultrasound of her liver. We were able to examine most of the liver parenchyma and the adela hepatis. We identified up to the bifurcation of the portal vein. There were no lesions noted. At the conclusion of this all of the ports were withdrawn. The wounds were infiltrated with 0.5% Marcaine. The pneumoperitoneum was released. The fascia of the subxiphoid and umbilical incisions were closed with a single #0 Vicryl stitch. The skin was closed with an interrupted #4-0 subcuticular stitch and the wounds were dressed with Bandaids. The instrument and needle counts were correct times two. She was taken extubated to the Post Anesthesia Care Unit in stable condition. The estimated blood loss was minimal. Coty Miller M.D. Resident, General Surgery Mukund Del Rosario M.D. Warehouse Delivery Driver, General Surgery BAHAI/charlie P cc: documented in this encou nter Plan of Treatment Not on filedocumented as of this encounter Procedures + +--------+ + + + | Procedure Name | Priori | Date/Time | Associated Diagnosis | Comments | | | ty | | | | + +--------+ + + + | OPERATION RECORD | | 08/31/1995 | | Results for this | | | | 12:00 AM | | procedure are in the | | | | PST | | results section. | + +--------+ + + + documented in this encounter Results OPERATION RECORD (08/31/1995 12:00 AM [facility]) + + | Procedure Note | + + | 08/31/1995 12:00 AM [facility] | | [facility] | | [address] [place] [id number] | | [facility] | | | | OPERATION RECORD | | | | Med Rec No.: [id number] Date: 08/31/95 | | | | Name: Yvonne Laguerre | | | | | | ATTENDING SURGEON: Mukund Del Rosario M.D. | | Warehouse Delivery Driver, General Surgery | | | | LITIGATION PARTNER(S): Coty Miller M.D. | | Resident, General Surgery | | | | POSTOPERATIVE DIAGNOSIS(ES): Biliary colic. | | | | OPERATION(S) PERFORMED: Laparoscopic cholecystectomy with limited | | intraoperative ultrasound. | | | | SPECIMEN(S) REMOVED: Gallbladder. | | | | ANESTHESIA: General, with an endotracheal tube. | | | | FINDINGS: A few anterior abdominal wall adhesions and | | normal appearing liver, stomach, pelvic and | | abdominal organs to | | a limited exploratory laparotomy. By intraoperative ultrasound there were | | no lesions noted within the liver or in the adela hepatis. | | | | PROCEDURE: The patient was properly identified. She | | was brought to the Operating Room. General | | endotracheal anesthesia was | | administered. She was placed in a comfortable supine position with the | | right arm tucked. She was straight-catheterized during the prep. Her | | abdomen was prepped with Hibiclens and alcohol and then draped in the usual | | sterile fashion. | | | | A transverse supraumbilical incision was made and the Veress needle was | | passed into the abdomen. The abdomen was then insufflated with CO2 to 4.3 | | liters and a pressure of 14. A Visi-port was used to place our first | | trocar. This was done without incident. The subsequent three trocars were | | placed under direct vision. This was all done uneventfully. Graspers were | | placed. The gallbladder was elevated. There was a smooth peritoneum that | | was thin walled. The cystic duct could be seen underneath the peritoneum. | | The peritoneum at the neck of the gallbladder was incised and stripped. The | | fibroareolar tissue around the gallbladder was then sharply dissected. We | | identified the cystic artery. After we completely isolated the cystic duct | | we identified the common duct junction. Two clips were placed proximally on | | the cystic duct and a single clip was placed on the more distal common duct, | | towards the gallbladder. The duct was divided. We subsequently isolated | | the already identified cystic artery and clipped it doubly proximally and | | singly distally and divided it. The gallbladder was removed from the | | gallbladder fossa with hook electrocautery. It was then delivered to the | | subxiphoid port and removed. She had some biliary sludge but no obvious | | stone. This was passed off for a specimen. The subxiphoid port was then | | replaced and the clips were inspected. They were all intact and the | | gallbladder fossa was dry. We irrigated briefly above the liver. | | | | We subsequently performed a limited ultrasound of her liver. We were able | | to examine most of the liver parenchyma and the adela hepatis. We | | identified up to the bifurcation of the portal vein. There were no lesions | | noted. At the conclusion of this all of the ports were withdrawn. The | | wounds were infiltrated with 0.5% Marcaine. The pneumoperitoneum was | | released. The fascia of the subxiphoid and umbilical incisions were closed | | with a single #0 Vicryl stitch. The skin was closed with an interrupted | | #4-0 subcuticular stitch and the wounds were dressed with Bandaids. The | | instrument and needle counts were correct times two. She was taken | | extubated to the Post Anesthesia Care Unit in stable condition. The | | estimated blood loss was minimal. | | | | | | | | | | Coty Miller M.D. | | Resident, General Surgery | | Mukund Del Rosario M.D. | | Warehouse Delivery Driver, General Surgery | | BAHAI/therese | | | | P | | | | cc: | | | + + documented in this encounter Visit Diagnoses Not on filedocumented in this encounter"
--- OUTSIDE RECORDS SUMMARY | ~2020-07-28 | XMS | Encounter Summary ---
Demographics + + + | Address | [address] | | | [place] [address] | + + + | Home Phone | | + + + | Preferred Language | Unknown | + + + | Marital Status | | + + + | Confucianist Affiliation | Unknown | + + + [...] + | Michael Ross | ECON | [address] | | | | | [place] | | | | | [address] | | + + + + + Care Team Providers + +------+ + | Care Lobby Concierge Name | Role | Phone | [...] as of this encounter Progress Notes Interface, Field Party Manager In - 10/15/2006 5:08 AM PSTCLINIC DATE: [...] antibiotics p.r.n. SOCIAL HISTORY: She is from [place]. Her children are essentially healthy; one was [...] any other intraabdominal processes. Elfego Stokes M.D. Bit Gathererelection watcher Gastroenterology ANSELMO/sharon cc: Mukund Del Rosario M.D. Pony Trimmer, General Surgery documented in this encounter Plan of Treatment Not on filedocumented as of this encounter Visit Diagnoses Not on filedocumented in this encounter"
--- OUTSIDE RECORDS SUMMARY | ~2020-07-28 | XMS | Encounter Summary ---
Demographics + + + | Address | [address] | | | [place] [address] | + + + | Home Phone [...] + | Stephanie Ross | [place] | [address] | | | | | [place] | | | | | [address] | | + + + + + Care Team Providers + +------+ + | Care Operations Program Manager Name | Role | Phone | + +------+ + | Manuel Dent MD | PCP | | + +------+ + Encounter Details +--------+ + + + + | Date | Type | Department | Care Team | Description | +--------+ + + + + | 09/19/ | Orders Only | [facility] | Conversion | | | 2018 | | CONVERSION [address] | Transaction, | | | | | [address] | Provider Unknown | | | | | [place], [place] | [phone] | | | | | [address] | | | | | | [phone] | | | +--------+ + + + [...]
--- OUTSIDE RECORDS SUMMARY | ~2020-07-28 | XMS | Encounter Summary ---
Demographics + + + | Address | [address] | | | [place] [address] | + + + | Home Phone [...] + | Michael Ross | ECON | [address] | | | | | [place] | | | | | [address] | | + + + + + Care Team Providers + +------+ + | Care Child Protective Services Specialist Name | Role | Phone | [...] Clinic | | | | | | [facility], [address] | | | | | | [place], [place] | | | | | | [address] | | | | | | [phone] | | | +--------+ + + + [...] as of this encounter Progress Notes Interface, Tie Knitter Helper In - 01/10/2007 5:06 AM PDT CLINIC [...] necessary at this time. Tena Graham M.D. Tobacco Feeder Catcher, Surgery Mukund Del Rosario M.D. Zinc Plating Machine Operator, General Surgery KCV: C: 11/15/95 [facility] 11/18/95 [facility] cc: LYLE JOSHI M.D. BONE MARROW TRANSPLANT documented in this encounter Plan of Treatment Not on filedocumented as of this encounter Visit Diagnoses Not on filedocumented in this encounter"
--- OUTSIDE RECORDS SUMMARY | ~2020-07-28 | XMS | Encounter Summary ---
Demographics + + + | Address | [address] | | | [place] [address] | + + + | Home Phone | | + + + | Preferred Language | Unknown | + + + | Marital Status | | + + + | Caodaism Affiliation | Unknown | + + + | Race | White | + + + | Ethnic Group | Not or | + + + Author + + + | Author | [facility] | + + + | Organization | [facility] | + + + | Address | Unknown | + + + | Phone | Unavailable | + + + Support + + + + + | Name | Relationship | Address | Phone | + + + + + | Michael Ross | ECON | [address] | | | | | [place] | | | | | [address] | | + + + + + Care Team Providers + +------+ + | Care Sanitation Truck Cleaner Name | Role | Phone | + [...] as of this encounter Progress Notes Interface, Dehydrogenation Operator In - 10/13/2006 3:12 AM PSTCLINIC DATE: [...] Mukund Del Rosario's care. Elfego Stokes M.D Insulator Techniciandirector hris Gastroenterology ANSELMO/genevieve cc: Mukund Del Rosario M.D. Crystallographer, General Surgery documented in this encounter Plan of Treatment Not on filedocumented as of this encounter Visit Diagnoses Not on filedocumented in this encounter"
--- OUTSIDE RECORDS SUMMARY | ~2020-07-28 | XMS | Encounter Summary ---
Demographics + + + | Address | [address] | | | [place] [address] | + + + | Home Phone | | + + + | Preferred Language | Unknown | + + + | Marital Status | | + + + | Islam Affiliation | Unknown | + + + | Race | White | + + + | Ethnic Group | Unknown | + + + Author + + + | Author | [facility] | | | and [place] | + + + | Organization | [facility] | | | and [place] | + + + | Address | Unknown | + + + | Phone | Unavailable | + + + Support + + + + + | Name | Relationship | Address | Phone | + + + + + | Stephanie Ross | E[place] | [address] | | | | | [place] | | | | | [address] | | + + + + + Care Team Providers + +------+ + | Care Canteen Attendant Name | Role | Phone | + +------+ + PCP | Unavailable | + +------+ + Encounter Details +--------+ + + + + | Date | Type | Department | Care Team | Description | +--------+ + + + + | 11/02/ | Orders Only | [facility] | Alan Gallegos, | | | 2019 | | CARDIOLOGY [place] | [address] | | | | | [address] | [place], | | | | | [place], [place] | [place] [address] | | | | | [address] | [phone] | | | | | [phone] | | | +--------+ + + + [...]
--- OUTSIDE RECORDS SUMMARY | ~2020-07-28 | XMS | Encounter Summary ---
Demographics + + + | Address | [address] | | | [place] [address] | + + + | Home Phone | | + + + | Preferred Language | Unknown | + + + | Marital Status | | + + + | Bahai Affiliation | Unknown | + + + | Race | White | + + + | Ethnic Group | Unknown | + + + Author + + + | Author | [facility] | | | and [place] | + + + | Organization | [facility] | | | and [place] | + + + | Address | Unknown | + + + | Phone | Unavailable | + + + Support + + + + + | Name | Relationship | Address | Phone | + + + + + | Stephanie Ross | [place] | [address] | | | | | [place] | | | | | [address] | | + + + + + Care Team Providers + +------+ + | Care Earth Science Faculty Member Name | Role | Phone | + +------+ + | Manuel Dent MD | PCP | | + +------+ + Encounter Details +--------+ + + + + | Date | Type | Department | Care Team | Description | +--------+ + + + + | 10/13/ | Orders Only | [facility] | RosyGreggAkila Isabell, | | | 2018 | | CONVERSION 888 | [address] | | | | | [place] | [place] [facility], | | | | | [place], [place] | [place] [address] | | | | | [address] | [phone] | | | | | [phone] | | | +--------+ + + + [...] | + +--------+ + + + | ECHO INTERPRETATION | Routin | 10/13/2018 | | Results for this | | OF OUTSIDE FILMS | e | 7:42 AM | | procedure are in the | | | | PST | | results section. | + +--------+ + + + documented in this encounter Results ECHO Interpretation of Outside Films (10/13/2018 7:42 AM PST) + + | Specimen | + + | | + + + + + | Impressions | Performed At | + + + | 1. Left ventricular systolic function is hyperdynamic with an | | | estimated EF of >70%. 2. Pseudonormal LV diastolic filling pattern, | | | consistent with elevated LA pressure and moderate dysfunction (Grade | | | II). 3. The right ventricle is normal in size and function. 4. The | | | left atrium is mildly enlarged. 5. Normally functioning bioprosthetic | | | aortic valve. 6. There is mild mitral stenosis, MVA is calculated at | | | 1.33 cm by VTI and 2.0 cm by PHT. The peak | | | transvalvular gradient is 9 mm Hg, mean gradient 4.2 mm Hg. 7. There | | | is borderline pulmonary hypertension. 8. The ascending aorta is | | | mildly dilated, measuring up to 3.8cm. | | + + + + + + | Narrative | Performed At | + + + | Patient Name: Yvonne Laguerre Date of : | | | 1930 Performing Physician: | | | AKILA TERRY MD | | | | | | INDICATIONS Valve replacement CONCLUSIONS | | | 1. Left ventricular systolic function is hyperdynamic | | | with an estimated EF of >70%. 2. Pseudonormal LV diastolic filling | | | pattern, consistent with elevated LA pressure and moderate dysfunction | | | (Grade II). 3. The right ventricle is normal in size and function. | | | 4. The left atrium is mildly enlarged. 5. Normally functioning | | | bioprosthetic aortic valve. 6. There is mild mitral stenosis, MVA is | | | calculated at 1.33 cm by VTI and 2.0 cm by PHT. The peak | | | transvalvular gradient is 9 mm Hg, mean gradient 4.2 mm Hg. 7. There | | | is borderline pulmonary hypertension. 8. The ascending aorta is | | | mildly dilated, measuring up to 3.8cm. FINDINGS -------- ECG | | | rhythm: Sinus rhythm with irregular beats. Study: A 2-dimensional | | | transthoracic echocardiogram with m-mode, spectral and color flow | | | Doppler was perfomed at [facility]. Study: This was a technically adequate | | | study. Left Ventricle: Left ventricular systolic function is | | | hyperdynamic with an estimated EF of >70%. Left Ventricle: The left | | | ventricle cavity size is normal. Left Ventricle: Left ventricular | | | wall thickness is normal. Left Ventricle: No regional wall motion | | | abnormalities. Left Ventricle: Pseudonormal LV diastolic filling | | | pattern, consistent with elevated LA pressure and moderate dysfunction | | | (Grade II). Right Ventricle: The right ventricle is normal in size | | | and function. Left Atrium: The left atrium is mildly enlarged. Right | | | Atrium: The right atrium is normal in size. Aortic Valve: There is | | | no evidence of aortic regurgitation. Aortic Valve: The aortic valve | | | area by continuity equation is 2.1cm Aortic Valve: The maximum | | | velocity across the aortic valve is 1.75m/s Aortic Valve: Peak/mean | | | gradient across the valve is 12.27mmHg/5.91mmHg. Aortic Valve: | | | Normally functioning bioprosthetic valve. Mitral Valve: Mitral valve | | | leaflets are thickened. Mitral Valve: There is trace mitral | | | regurgitation. Mitral Valve: No evidence of MVP. Mitral Valve: Mild | | | mitral annular calcification present. Mitral Valve: Mild mitral | | | stenosis, MVA is calculated at 1.33 cm by VTI and 2.0 cm | | | by PHT. The peak transvalvular gradient is 9 mm Hg, mean gradient | | | 4.2 mm Hg. Tricuspid Valve: The tricuspid valve appears structurally | | | normal. Tricuspid Valve: Alak-lf-[id number] tricuspid regurgitation | | | present. Tricuspid Valve: There is borderline pulmonary hypertension. | | | Tricuspid Valve: The right ventricular systolic pressure (pulmonary | | | artery systolic pressure), as measured by Doppler, is 34 - 39 mm Hg. | | | Pulmonic Valve: The pulmonic valve is normal. Pulmonic Valve: Trace | | | pulmonic regurgitation. Pericardium: There is a trivial pericardial | | | effusion present. IVC/Hepatic Veins: The IVC is small (<1.5cm) and | | | collapses with sniff, consistent with central venous pressures of | | | 0-5mmHg. Aorta: The ascending aorta is mildly dilated, measuring up | | | to 3.8cm. Mass: No mass visualized Thrombus: No clot visualized | | | Thrombus: No vegetation visualized. Septum: No ASD observed. Septum: | | | No VSD observed. MEASUREMENTS Ao asc: 3.80 cm | | | Ao Diam: 3.69 cm Ao sinus: 3.[address] junct: 3.39 cm | | | IVC: 1.41 cm LA Major: 5.48 cm EDV(Teich): 68.99 ml IVSd: | | | 1.01 cm LVIDd: 3.97 cm LVPWd: 1.00 cm LVOT Area: 3.49 | | | cm2 LVOT Diam: 2.11 cm %FS: 39.31 % EF(Teich): 70.39 % | | | ESV(Teich): 20.42 ml LVIDs: 2.41 cm SV(Teich): 48.56 ml RA | | | Major: 5.41 cm RV Major: 6.58 cm RV Minor: 2.54 cm RVIDd: | | | 2.30 cm LVEF MOD A2C: 75.07 % SV MOD A2C: 38.99 ml LVEF | | | MOD A4C: 72.86 % SV MOD A4C: 43.85 ml EF Biplane: 74.18 % | | | LVEDV MOD BP: 56.50 ml LVESV MOD BP: 14.58 ml LVEDV MOD A2C: | | | 51.93 ml LVLd A2C: 6.70 cm LVEDV MOD A4C: 60.18 ml LVLd | | | A4C: 6.89 cm LVESV MOD A2C: 12.94 ml LVLs A2C: 5.83 cm | | | LVESV MOD A4C: 16.33 ml LVLs A4C: 5.91 cm LAESV(A-L): 61.15 | | | ml LAESV Index (A-L): 37.29 ml/m2 LAAs A2C: 18.47 cm2 LAESV | | | A-L A2C: 51.71 ml LALs A2C: 5.60 cm LAAs A4C: 21.15 cm2 | | | LAESV A-L A4C: 69.99 ml LALs A4C: 5.42 cm RAAs: 13.40 cm2 | | | RAESV A-L: 26.88 ml RAESV MOD: 26.35 ml RALs: 5.67 cm | | | TAPSE: 1.37 cm AV maxP.27 mmHg AV meanP.91 mmHg | | | AV Vmax: 1.75 m/s AV Vmean: 1.10 m/s AV VTI: 33.56 cm JUANIS | | | Vmax: 1.90 cm2 JUANIS (VTI): 2.05 cm2 AVAI Vmax: 0.00 cm2/m2 | | | AVAI (VTI): 0.00 cm2/m2 LVOT maxP.64 mmHg LVOT meanPG: | | | 1.97 mmHg LVSI Dopp: 42.05 ml/m2 LVSV Dopp: 68.97 ml LVOT | | | Vmax: 0.95 m/s LVOT Vmean: 0.65 m/s LVOT VTI: 19.71 cm MV | | | A Jaya: 1.36 m/s MV Dec Kay: 3.76 m/s2 MV DecT: 374.90 ms | | | MV E Jaya: 1.41 m/s MV E/A Ratio: 1.03 MV PHT: 108.72 ms | | | MVA By PHT: 2.02 cm2 MV maxP.69 mmHg MV meanP.57 | | | mmHg MV Vmax: 1.47 m/s MV Vmean: 0.87 m/s MV VTI: 51.73 cm | | | MVA (VTI): 1.33 cm2 Septal e': 0.04 m/s Septal E/e': | | | 29.28 Lateral e': 0.04 m/s Lateral E/e': 28.51 RAP: 5 mmHg | | | RV S': 0.09 m/s RVSP: 38.58 mmHg TR maxP.58 mmHg TR | | | Vmax: 2.89 m/s Surveying Crew Stake Runner: MICHELLE Authenticated by: AKILA | | | MD ROSY Report Date/Time: 10-16-2018 15:51:22 | | + + + + + | Procedure Note | + + | Jay Jay Quiroz Conversion - 05/31/2019 12:26 PM PDT Patient Name: Carlotta, | | Lupe of : 1930 Performing Physician: AKILA | | ROSY, | | INDICATIONS V | | alve replacement CONCLUSIONS 1. Left ventricular systolic function is | | hyperdynamic with an estimated EF of >70%.2. Pseudonormal LV diastolic filling pattern, | | consistent with elevated LA pressure and moderate dysfunction (Grade II).3. The right | | ventricle is normal in size and function.4. The left atrium is mildly enlarged.5. | | Normally functioning bioprosthetic aortic valve.6. There is mild mitral stenosis, MVA is | | calculated at 1.33 cm by VTI and 2.0 cm by PHT. The peak transvalvular | | gradient is 9 mm Hg, mean gradient 4.2 mm Hg.7. There is borderline pulmonary | | hypertension.8. The ascending aorta is mildly dilated, measuring up to 3.8cm. | | FINDINGS--------ECG rhythm: Sinus rhythm with irregular beats.Study: A 2-dimensional | | transthoracic echocardiogram with m-mode, spectral and color flow Doppler was perfomed | | at [facility].Study: This was a technically adequate study.Left Ventricle: Left ventricular | | systolic function is hyperdynamic with an estimated EF of >70%.Left Ventricle: The left | | ventricle cavity size is normal.Left Ventricle: Left ventricular wall thickness is | | normal.Left Ventricle: No regional wall motion abnormalities.Left Ventricle: | | Pseudonormal LV diastolic filling pattern, consistent with elevated LA pressure and | | moderate dysfunction (Grade II).Right Ventricle: The right ventricle is normal in size | | and function.Left Atrium: The left atrium is mildly enlarged.Right Atrium: The right | | atrium is normal in size.Aortic Valve: There is no evidence of aortic | | regurgitation.Aortic Valve: The aortic valve area by continuity equation is | | 2.1cm Aortic Valve: The maximum velocity across the aortic valve is 1.75m/sAortic | | Valve: Peak/mean gradient across the valve is 12.27mmHg/5.91mmHg.Aortic Valve: Normally | | functioning bioprosthetic valve.Mitral Valve: Mitral valve leaflets are thickened.Mitral | | Valve: There is trace mitral regurgitation.Mitral Valve: No evidence of MVP.Mitral | | Valve: Mild mitral annular calcification present.Mitral Valve: Mild mitral stenosis, MVA | | is calculated at 1.33 cm by VTI and 2.0 cm by PHT. The peak transvalvular | | gradient is 9 mm Hg, mean gradient 4.2 mm Hg.Tricuspid Valve: The tricuspid valve | | appears structurally normal.Tricuspid Valve: Gltc-bk-[id number] tricuspid regurgitation | | present.Tricuspid Valve: There is borderline pulmonary hypertension.Tricuspid Valve: The | | right ventricular systolic pressure (pulmonary artery systolic pressure), as measured | | by Doppler, is 34 - 39 mm Hg.Pulmonic Valve: The pulmonic valve is normal.Pulmonic | | Valve: Trace pulmonic regurgitation.Pericardium: There is a trivial pericardial | | effusion present.IVC/Hepatic Veins: The IVC is small (<1.5cm) and collapses with sniff, | | consistent with central venous pressures of 0-5mmHg.Aorta: The ascending aorta is mildly | | dilated, measuring up to 3.8cm.Mass: No mass visualizedThrombus: No clot | | visualizedThrombus: No vegetation visualized.Septum: No ASD observed.Septum: No VSD | | observed. MEASUREMENTS Ao asc: 3.80 cmAo Diam: 3.69 cmAo sinus: 3.64 | | cmAo st junct: 3.39 cmIVC: 1.41 cmLA Major: 5.48 cmEDV(Teich): 68.99 mlIVSd: | | 1.01 cmLVIDd: 3.97 cmLVPWd: 1.00 cmLVOT Area: 3.49 [id number] Diam: 2.11 cm%FS: | | 39.31 %EF(Teich): 70.39 %ESV(Teich): 20.42 mlLVIDs: 2.41 cmSV(Teich): 48.56 mlRA | | Major: 5.41 cmRV Major: 6.58 cmRV Minor: 2.54 cmRVIDd: 2.30 cmLVEF MOD A2C: | | 75.07 %SV MOD A2C: 38.99 mlLVEF MOD A4C: 72.86 %SV MOD A4C: 43.85 mlEF Biplane: | | 74.18 %LVEDV MOD BP: 56.50 mlLVESV MOD BP: 14.58 mlLVEDV MOD A2C: 51.93 mlLVLd | | A2C: 6.70 cmLVEDV MOD A4C: 60.18 mlLVLd A4C: 6.89 cmLVESV MOD A2C: 12.94 mlLVLs | | A2C: 5.83 cmLVESV MOD A4C: 16.33 mlLVLs A4C: 5.91 cmLAESV(A-L): 61.15 mlLAESV | | Index (A-L): 37.29 ml/m2LAAs A2C: 18.47 [id number] A-L A2C: 51.71 mlLALs A2C: 5.60 | | cmLAAs A4C: 21.15 [id number] A-L A4C: 69.99 mlLALs A4C: 5.42 cmRAAs: 13.40 | | [id number] A-L: 26.88 mlRAESV MOD: 26.35 mlRALs: 5.67 cmTAPSE: 1.37 cmAV maxPG: | | 12.27 mmHgAV meanP.91 mmHgAV Vmax: 1.75 m/Carolyn Vmean: 1.10 m/Carolyn VTI: 33.56 | | cmAVA Vmax: 1.90 cm2AVA (VTI): 2.05 [id number] Vmax: 0.00 cm2/m2AVAI (VTI): 0.00 | | cm2/m2LVOT maxP.64 mmHgLVOT meanP.97 mmHgLVSI Dopp: 42.05 ml/m2LVSV Dopp: | | 68.97 mlLVOT Vmax: 0.95 m/sLVOT Vmean: 0.65 m/sLVOT VTI: 19.71 cmMV A Ajya: | | 1.36 m/sMV Dec Kay: 3.76 m/s2MV DecT: 374.90 msMV E Jaya: 1.41 m/sMV E/A Ratio: | | 1.03MV PHT: 108.72 msMVA By PHT: 2.02 cm2MV maxP.69 mmHgMV meanP.57 | | mmHgMV Vmax: 1.47 m/sMV Vmean: 0.87 m/sMV VTI: 51.73 cmMVA (VTI): 1.33 [id number] | | e': 0.04 m/sSeptal E/e': 29.28Lateral e': 0.04 m/sLateral E/e': 28.51RAP: 5 | | mmHgRV S': 0.09 m/sRVSP: 38.58 mmHgTR maxP.58 mmHgTR Vmax: 2.89 m/s | | Surveying Crew Stake Runner: DHAuthenticated by: Lexa ADKINS Date/Time: 10-16-2018 15:51:22 | | IMPRESSION: 1. Left ventricular systolic function is hyperdynamic with an estimated EF | | of >70%.2. Pseudonormal LV diastolic filling pattern, consistent with elevated LA | | pressure and moderate dysfunction (Grade II).3. The right ventricle is normal in size | | and function.4. The left atrium is mildly enlarged.5. Normally functioning bioprosthetic | | aortic valve.6. There is mild mitral stenosis, MVA is calculated at 1.33 cm by | | VTI and 2.0 cm by PHT. The peak transvalvular gradient is 9 mm Hg, mean gradient | | 4.2 mm Hg.7. There is borderline pulmonary hypertension.8. The ascending aorta is mildly | | dilated, measuring up to 3.8cm. | |EDV(Teich): 68.99 ml | |IVSd: 1.01 cm | |LVIDd: 3.97 cm | |LVPWd: 1.00 cm | |LVOT Area: 3.49 cm2 | |LVOT Diam: 2.11 cm | |%FS: 39.31 % | |EF(Teich): 70.39 % | |ESV(Teich): 20.42 ml | |LVIDs: 2.41 cm | |SV(Teich): 48.56 ml | |RA Major: 5.41 cm | |RV Major: 6.58 cm | |RV Minor: 2.54 cm | |RVIDd: 2.30 cm | |LVEF MOD A2C: 75.07 % | |SV MOD A2C: 38.99 ml | |LVEF MOD A4C: 72.86 % | |SV MOD A4C: 43.85 ml | |EF Biplane: 74.18 % | |LVEDV MOD BP: 56.50 ml | |LVESV MOD BP: 14.58 ml | |LVEDV MOD A2C: 51.93 ml | |LVLd A2C: 6.70 cm | |LVEDV MOD A4C: 60.18 ml | |LVLd A4C: 6.89 cm | |LVESV MOD A2C: 12.94 ml | |LVLs A2C: 5.83 cm | |LVESV MOD A4C: 16.33 ml | |LVLs A4C: 5.91 cm | |LAESV(A-L): 61.15 ml | |LAESV Index (A-L): 37.29 ml/m2 | |LAAs A2C: 18.47 cm2 | |LAESV A-L A2C: 51.71 ml | |LALs A2C: 5.60 cm | |LAAs A4C: 21.15 cm2 | |LAESV A-L A4C: 69.99 ml | |LALs A4C: 5.42 cm | |RAAs: 13.40 cm2 | |RAESV A-L: 26.88 ml | |RAESV MOD: 26.35 ml | |RALs: 5.67 cm | |TAPSE: 1.37 cm | |AV maxP.27 mmHg | |AV meanP.91 mmHg | |AV Vmax: 1.75 m/s | |AV Vmean: 1.10 m/s | |AV VTI: 33.56 cm | |JUANIS Vmax: 1.90 cm2 | |JUANIS (VTI): 2.05 cm2 | |AVAI Vmax: 0.00 cm2/m2 | |AVAI (VTI): 0.00 cm2/m2 | |LVOT maxP.64 mmHg | |LVOT meanP.97 mmHg | |LVSI Dopp: 42.05 ml/m2 | |LVSV Dopp: 68.97 ml | |LVOT Vmax: 0.95 m/s | |LVOT Vmean: 0.65 m/s | |LVOT VTI: 19.71 cm | |MV A Jaya: 1.36 m/s | |MV Dec Kay: 3.76 m/s2 | |MV DecT: 374.90 ms | |MV E Jaya: 1.41 m/s | |MV E/A Ratio: 1.03 | |MV PHT: 108.72 ms | |MVA By PHT: 2.02 cm2 | |MV maxP.69 mmHg | |MV meanP.57 mmHg | |MV Vmax: 1.47 m/s | |MV Vmean: 0.87 m/s | |MV VTI: 51.73 cm | |MVA (VTI): 1.33 cm2 | |Septal e': 0.04 m/s | |Septal E/e': 29.28 | |Lateral e': 0.04 m/s | |Lateral E/e': 28.51 | |RAP: 5 mmHg | |RV S': 0.09 m/s | |RVSP: 38.58 mmHg | |TR maxP.58 mmHg | |TR Vmax: 2.89 m/s | | | |Surveying Crew Stake Runner: MICHELLE | |Authenticated by: AKILA TERRY MD | |Report Date/Time: 10-16-2018 15:51:22 | | | |IMPRESSION: | |1. Left ventricular systolic function is hyperdynamic with an estimated EF of >70%. | |2. Pseudonormal LV diastolic filling pattern, consistent with elevated LA pressure and mode rate dysfunction (Grade II). | |3. The right ventricle is normal in size and function. | |4. The left atrium is mildly enlarged. | |5. Normally functioning bioprosthetic aortic valve. | |6. There is mild mitral stenosis, MVA is calculated at 1.33 cm by VTI and 2.0 cm by PHT. The peak transvalvular gradient is 9 mm Hg, mean gradient 4.2 mm Hg. | |7. There is borderline pulmonary hypertension. | |8. The ascending aorta is mildly dilated, measuring up to 3.8cm. | + + documented in this encounter Visit Diagnoses Not on filedocumented in this encounter"
--- OUTSIDE RECORDS SUMMARY | ~2020-07-28 | XMS | Encounter Summary ---
Demographics + + + | Address | [address] | | | [place] [address] | + + + | Home Phone | | + + + | Preferred Language | Unknown | + + + | Marital Status | | + + + | Orthodoxy Affiliation | Unknown | + + + | Race | White | + + + | Ethnic Group | Unknown | + + + Author + + + | Author | [facility] | | | and [place] | + + + | Organization | [facility] | | | and [place] | + + + | Address | Unknown | + + + | Phone | Unavailable | + + + Support + + + + + | Name | Relationship | Address | Phone | + + + + + | Stephanie Ross | [place] | [address] | | | | | [place] | | | | | [address] | | + + + + + Care Team Providers + +------+ + | Care Bomb Technician Name | Role | Phone | [...] Provider Unknown | | | | | [place], [place] | [phone] | | | | | [address] | | | | | | [phone] | | | +--------+ + + + [...]
--- OUTSIDE RECORDS SUMMARY | ~2020-07-28 | XMS | Encounter Summary ---
Demographics + + + | Address | [address] | | | [place] [address] | + + + | Home Phone [...] + + | Author | [facility] | + + + | Organization | [facility] | + + + | Address | Unknown | + + + | Phone | Unavailable | + + + Support + + + + + | Name | Relationship | Address | Phone | + + + + + | Michael Ross | E[place] | [address] | | | | | [place] | | | | | [address] | | + + + + + Care Team Providers + +------+ + | Care Shop Supervisor Name | Role | Phone | [...]
--- OUTSIDE RECORDS SUMMARY | ~2020-07-28 | XMS | Encounter Summary ---
Demographics + + + | Address | [address] | | | [place] [address] | + + + | Home Phone | | + + + | Preferred Language | Unknown | + + + | Marital Status | | + + + | Gnosticism Affiliation | Unknown | + + + | Race | White | + + + | Ethnic Group | Not or | + + + Author + + + | Author | [facility] | + + + | Organization | [facility] | + + + | Address | Unknown | + + + | Phone | Unavailable | + + + Support + + + + + | Name | Relationship | Address | Phone | + + + + + | Michael Ross | E[place] | [address] | | | | | [place] | | | | | [address] | | + + + + + Care Team Providers + +------+ + | Care Bridge Design Engineer Name | Role | Phone | [...] | Only | [address] | [phone] | | | | | [place] | | | | | | [address] | | | | | | [phone] | | | +--------+ + + + [...] | + + + + + | [facility] | [address] | [place] [address] | | | PATHOLOGY | [address] | | | + + + + + documented in this encounter Visit Diagnoses Not on filedocumented in this encounter"
--- OUTSIDE RECORDS SUMMARY | ~2020-07-28 | XMS | Encounter Summary ---
Demographics + + + | Address | [address] | | | [place] [address] | + + + | Home Phone [...] + | Michael Ross | [place] | [address] | | | | | [place] | | | | | [address] | | + + + + + Care Team Providers + +------+ + | Care Lawn Care Worker Name | Role | Phone | + +------+ + PCP | Unavailable | + +------+ + Encounter Details +--------+ + + + + | Date | Type | Department | Care Team | Description | +--------+ + + + + | 07/02/ | Results | | Other, Faculty | | | 1996 | Only | | [phone] | | +--------+ + + + + [...] | | + +---------+ + + | [facility]PARTMENT | | | | | RADIOLOGY | | | | + +---------+ + + documented in this encounter Visit Diagnoses Not on filedocumented in this encounter"
--- OUTSIDE RECORDS SUMMARY | ~2020-07-28 | XMS | Encounter Summary ---
Demographics + + + | Address | [address] | | | [place] [address] | + + + | Home Phone [...] + | Michael Ross | [place] | [address] | | | | | [place] | | | | | [address] | | + + + + + Care Team Providers + +------+ + | Care Hamper Maker Machine Name | Role | Phone | + [...] as of this encounter Procedure Notes Interface, Powder Truck Driver In - 10/01/2006 5:[address] [address] [facility] OPERATION RECORD Med Rec No.: [id number] Date: 01/09/1999 Name: Yvonne Laguerre ATTENDING PHYSICIAN: Nicholas Fleming M.D. EXPERIMENTAL DISPLAY BUILDER(S): Sri Goodwin M.D. PREOPERATIVE DIAGNOSIS(ES): Colon cancer. [...] prepped and draped sterilely and the 19 Gibraltarian Jeff rigid cystoscope was introduced through the [...] cystoscoped the patient again using the 19 Gibraltarian Jeff rigid cystoscope. When the bladder was [...] a running subcuticular 4-0 Vicryl. A 16 Gibraltarian Caballero catheter was left in place and the wound was steri-stripped and sterile dressing was applied. At the conclusion, estimated blood loss was less than 50 cc. There were no complications. Wade Batista M.D. Resident, Urology Nicholas Fleming M.D. Director Part, Surgery Division of Urology CFK:x10 CC: BRANDYN VOGLE MD [address] [place] [address] [address] [place] [address] LYLE JOSHI MD [address] [place] [address] [place] [id number] signed by Interface, Powder Truck Driver In at 10/01/2006 5:11 AM PSTInterface, Powder Truck Driver In - 10/01/2006 5:[address] [id number] [facility] OPERATION RECORD Med Rec No.: [id number] Date: 01/09/1999 Name: Yvonne Laguerre ATTENDING SURGEON: Sri Spears M.D. EXPERIMENTAL DISPLAY BUILDER: Sri Pascal M.D. PREOPERATIVE DIAGNOSIS(ES): Chronic left [...] was then inserted into the colon 28 Gibraltarian fit, and we then inserted the 28 [...] Nolasco M.D. BM:xt4 CC: BRANDYN VOGEL MD [address] [place] [address] [address] [place] [address] LYLE JOSHI MD [address] [place] [address] [place] [id number] signed by Interface, Powder Truck Driver In at 10/01/2006 5:11 AM PSTInterface, Powder Truck Driver In - 10/01/2006 5:11 AM PST [address] [address] [facility] OPERATION RECORD Med Rec No.: [id number] Date: 01/09/1999 Name: Yvonne Laguerre ATTENDING SURGEON:Nicholas Fleming M.D. Director Part, Surgery Division of Urology EXPERIMENTAL DISPLAY BUILDER(S): Alan Flanagan M.D. Resident, Urology PREOPERATIVE DIAGNOSIS(ES): [...] present over the trigone. 2. A 6 Gibraltarian x 70-cm open-end Roseglen catheter was placed into the left ureteral [...] bladder were as described above. A 6 Gibraltarian by 70 cm open-end Roseglen ureteral catheter was advanced through the cystoscope and into the left ureteral orifice. This was then advanced into the proximal left collecting system without resistance or difficulty. With the ureteral stent in place, the cystoscope was withdrawn. A #18 Gibraltarian 5 cc Caballero catheter was then advanced [...] M.D. JJ:xt2 CC: BRANDYN VOGEL MD [address] [place] [address] LYLE JOSHI MD [address] [facility] [place] [place] [id number] signed by Interface, Powder Truck Driver In at 10/01/2006 5:11 AM PSTdocumented in [...] | Transcriptions | + + | Interface, Powder Truck Driver In - 10/01/2006 5:11 AM PST | | [address] | | [place], [place] [address] | | [facility] Rec No[facility] | | [id number] Date: 01/09/1999Name: Cisco Laguerre | | SURGEON:Nicholas Fleming M.D. Director Part, | | Surgery Division of UrologyASSISTANT(S): | [...] Service [facility] | | [facility]teral stent | | preoperatively.FINDINGS:1. The bladder appeared normal throughout without evidence | | of tumors, stones, foreign bodies, or suspicious areas. There was a moderate | | amount of squamous metaplasia present over the trigone.2. A 6 Gibraltarian x 70-cm | | open-end Roseglen catheter was placed into the left ureteral [...] 6French by 70 cm open-end | | Roseglen ureteral catheter was advanced through thecystoscope and [...] actually participated in the | | entireprocedure.Alan Flanagan M.D.Nicholas Fleming M.D.LAMBERTO:xt2D: 01/09/99T: | | 01/13/99CC: BRANDYN VGOEL MD [address] [place] | | [address] LYLE JOSHI MD [address] [facility] [place] [address] | |1. The bladder appeared normal throughout without evidence of tumors, | | stones, foreign bodies, or suspicious areas. There was a moderate | | amount of squamous metaplasia present over the trigone. | |2. A 6 Gibraltarian x 70-cm open-end Roseglen catheter was placed into the left | [...] were as described above. A 6 | |Gibraltarian by 70 cm open-end Roseglen ureteral catheter was advanced through the | |cystoscope and into the left ureteral orifice. This was then advanced into | |the proximal left collecting system without resistance or difficulty. | | | |With the ureteral stent in place, the cystoscope was withdrawn. A #18 | |Gibraltarian 5 cc Caballero catheter was then advanced [...] | BRANDYN VOGEL MD | | [address] | | [place] [address] | | | | LYLE JOSHI MD | | [address] [facility] | | [place] [address] | + + | Interface, Powder Truck Driver In - 10/01/2006 5:11 AM PST | | [address] | | [place], [place] [address] | | [facility] Rec No.: | | [id number] Date:01/09/1999Name: Carlotta, | | BasiliaueriteKAYLA SURGEON: Mukund Del Rosario M.D. | | Jessica Nolasco M.D.EXPERIMENTAL DISPLAY BUILDER: Hector Ovalle M.D. | | Dick Carvajal [...] was placed. A left | | lower [id number] millimeter port was placed, and a left [...] inserted into the | | colon 28 Gibraltarian fit, and we then inserted the 28 [...] 01/14/1999CC: | | BRANDYN VOGEL MD [address] [place] [address] [facility], | | LYLE Galarza MD [address] [facility] [place] [address] | |disease appeared to be in the [...] | |then inserted into the colon 28 Gibraltarian fit, and we then inserted the 28 [...] | BRANDYN VOGEL MD | | [address] | | [place] [address] | | | | | | | | LYLE JOSHI MD | | [address] [facility] | | [place] [address] | + + | Interface, Powder Truck Driver In - 10/01/2006 5:11 AM PST | | [address] | | [place], [place] [address] | | [facility] Rec No[facility] | | [id number] Date: 01/09/1999Name: Cisco Laguerre PHYSICIAN: | | Nicholas Fleming M.D.EXPERIMENTAL DISPLAY BUILDER(S): Wade Batista M.D. | | Alan Flanagan [...] prepped and draped sterilely and the 19 Gibraltarian Jeff rigidcystoscope was introduced | | through [...] grasp the bladder with a | | [place] clamp.Once it was elevated into the wound we easily identified the | | perforation.This was closed in a two-layer closure with closing the mucosa with | | Biosynand closing the detrusor and adventitia with 4-0 Biosyn. Once this wasclosed | | we then cystoscoped the patient again using the 19 Gibraltarian Jeff rigidcystoscope. When | | the bladder [...] | arunning subcuticular 4-0 Vicryl. A 16 Gibraltarian Caballero catheter was left inplace and | | the wound was steri-stripped and sterile dressing was applied.At the conclusion, | | estimated blood loss was less than 50 cc. There were nocomplications.Wade Batista, | | SriResident, Jennifer Fleming M.D.Director Part, SurgeryDivision of | | UrologyCFK:x10D: 01/09/1999T: 01/14/1999CC: BRANDYN VOGEL MD [address] [place] [address] LYLE JOSHI MD [address] [facility] | | [place] [address] | |hemicolectomy. During the procedure a Bovie [...] prepped and draped sterilely and the 19 Gibraltarian Jeff rigid | |cystoscope was introduced through [...] identify and grasp the bladder with a [place] clamp. | |Once it was elevated into the wound we easily identified the perforation. | |This was closed in a two-layer closure with closing the mucosa with Biosyn | |and closing the detrusor and adventitia with 4-0 Biosyn. Once this was | |closed we then cystoscoped the patient again using the 19 Gibraltarian Jeff rigid | |cystoscope. When the bladder [...] | |running subcuticular 4-0 Vicryl. A 16 Gibraltarian Caballero catheter was left in | |place and the wound was steri-stripped and sterile dressing was applied. | |At the conclusion, estimated blood loss was less than 50 cc. There were no | |complications. | | | | | | | |Wade Batista M.D. | |Resident, Urology | | | | | | | |Nicholas Fleming M.D. | |Director Part, Surgery | |Division of Urology | | | |CFK:x10 | | | | | | | |CC: | | BRANDYN VOGEL MD | | [address] | | [place] [address] | | | | LYLE JOSHI MD | | [address] [facility] | | [place] [address] | + + documented in this encounter Visit Diagnoses Not on filedocumented in this encounter"
--- OUTSIDE RECORDS SUMMARY | ~2020-07-28 | XMS | Encounter Summary ---
Demographics + + + | Address | [address] | | | [place] [address] | + + + | Home Phone [...] + | Michael Ross | [place] | [address] | | | | | [place] | | | | | [address] | | + + + + + Care Team Providers + +------+ + | Care Sheet Metal Journeyman Name | Role | Phone | + [...] Clinic | | | | | | [facility], [address] | | | | | | [place], [place] | | | | | | [address] | | | | | | [phone] | | | +--------+ + + + [...] as of this encounter Progress Notes Interface, Modern Dancer In - 11/22/2006 3:04 AM [facility] DATE: 07/23/97 CHIEF COMPLAINT: Right carpal [...] A cc: Grover Rocha M.D., Hematology/Oncology FAX: [phone] Surgery Scheduling documented in this encounter Plan of Treatment Not on filedocumented as of this encounter Visit Diagnoses Not on filedocumented in this encounter"
--- OUTSIDE RECORDS SUMMARY | ~2020-07-28 | XMS | Encounter Summary ---
Demographics + + + | Address | [address] | | | [place] [address] | + + + | Home Phone | | + + + | Preferred Language | Unknown | + + + | Marital Status | | + + + | Sikhism Affiliation | Unknown | + + + [...] + | Stephanie Ross | [place] | [address] | | | | | [place] | | | | | [address] | | + + + + + Care Team Providers + +------+ + | Care Quality Officer Name | Role | Phone | + +------+ + | Manuel Dent MD | PCP | | + +------+ + Encounter Details +--------+ + + + + | Date | Type | Department | Care Team | Description | +--------+ + + + + | 05/25/ | Orders Only | [facility] | Anai Jade | Essential (primary) | | 2019 | | CARDIOLOGY [place] | [address] | hypertension; Mixed | | | | [address] | [address] | hyperlipidemia | | | | [address] | [place] [address] | | | | | [place], [place] | [phone] | | | | | [address] | | | | | | [phone] | | | +--------+ + + + [...]
--- OUTSIDE RECORDS SUMMARY | ~2020-07-28 | XMS | Encounter Summary ---
Demographics + + + | Address | [address] | | | [place] [address] | + + + | Home Phone | | + + + | Preferred Language | Unknown | + + + | Marital Status | | + + + | Scientologist Affiliation | Unknown | + + + | Race | White | + + + | Ethnic Group | Unknown | + + + Author + + + | Author | [facility] | | | and [place] | + + + | Organization | [facility] | | | and [place] | + + + | Address | Unknown | + + + | Phone | Unavailable | + + + Support + + + + + | Name | Relationship | Address | Phone | + + + + + | Stephanie Ross | [place] | [address] | | | | | [place] | | | | | [address] | | + + + + + Care Team Providers + +------+ + | Care Jamb Cutter Name | Role | Phone | + [...] | | ASHLEE BOUCHER | [address] [facility], | | | | | [place], [place] | [place] [address] | | | | | [address] | [phone] | | | | | [phone] | | | +--------+ + + + [...] | | | Doppler was perfomed at [facility]. Study: This was a technically adequate | [...] structurally | | | normal. Tricuspid Valve: Cxvk-ly-quedypzu tricuspid regurgitation | | | present. Tricuspid [...] | A Jaya: 1.36 m/s MV Dec [place]: 3.76 m/s2 MV DecT: 374.90 ms | [...] TR | | | Vmax: 2.89 m/s Physician Vice President: MICHELLE Authenticated by: AKILA | | | [...] flow Doppler was perfomed | | at [facility].Study: This was a technically adequate study.Left Ventricle: [...] valve | | appears structurally normal.Tricuspid Valve: Jvul-ia-vegdtfps tricuspid regurgitation | | present.Tricuspid Valve: There [...] cmLVIDd: 3.97 cmLVPWd: 1.00 cmLVOT Area: 3.49 gp9VQRH Diam: 2.11 cm%FS: | | 39.31 %EF(Teich): [...] | Index (A-L): 37.29 ml/m2LAAs A2C: 18.47 [id number] A-L A2C: 51.71 mlLALs A2C: 5.60 | | cmLAAs A4C: 21.15 mx5EPRSG A-L A4C: 69.99 mlLALs A4C: 5.42 cmRAAs: 13.40 | | pp4FNFLU A-L: 26.88 mlRAESV MOD: 26.35 mlRALs: 5.67 cmTAPSE: 1.37 cmAV maxPG: | | 12.27 mmHgAV meanP.91 mmHgAV Vmax: 1.75 m/Carolyn Vmean: 1.10 m/Carolyn VTI: 33.56 | | cmAVA Vmax: 1.90 cm2AVA (VTI): 2.05 xj0PQNS Vmax: 0.00 cm2/m2AVAI (VTI): 0.00 | | cm2/m2LVOT maxP.64 mmHgLVOT meanP.97 mmHgLVSI Dopp: 42.05 ml/m2LVSV Dopp: | | 68.97 mlLVOT Vmax: 0.95 m/sLVOT Vmean: 0.65 m/sLVOT VTI: 19.71 cmMV A Jaya: | | 1.36 m/sMV Dec [place]: 3.76 m/s2MV DecT: 374.90 msMV E Jaya: 1.41 m/sMV E/A Ratio: | | 1.03MV PHT: 108.72 msMVA By PHT: 2.02 cm2MV maxP.69 mmHgMV meanP.57 | | mmHgMV Vmax: 1.47 m/sMV Vmean: 0.87 m/sMV VTI: 51.73 cmMVA (VTI): 1.33 jh7Mygtjz | | e': 0.04 m/sSeptal E/e': 29.28Lateral e': 0.04 m/sLateral E/e': 28.51RAP: 5 | | mmHgRV S': 0.09 m/sRVSP: 38.58 mmHgTR maxP.58 mmHgTR Vmax: 2.89 m/s | | Physician Vice President: DHAuthenticated by: Lexa ADKINS Date/Time: 10-16-2018 15:51:22 [...] A Jaya: 1.36 m/s | |MV Dec [place]: 3.76 m/s2 | |MV DecT: 374.90 ms [...] |TR Vmax: 2.89 m/s | | | |Physician Vice President: MICHELLE | |Authenticated by: AKILA TERRY MD [...]
--- OUTSIDE RECORDS SUMMARY | ~2020-07-28 | XMS | Clinical Summary ---
Demographics + + + | Address | [address] | | | [place] [address] | + + + | Home Phone | | + + + | Preferred Language | Unknown | + + + | Marital Status | | + + + | Mandaeism Affiliation | Unknown | + + + | Race | White | + + + | Ethnic Group | Unknown | + + + Author + + + | Author | [facility] | | | and [place] | + + + | Organization | [facility] | | | and [place] | + + + | Address | Unknown | + + + | Phone | Unavailable | + + + Support + + + + + | Name | Relationship | Address | Phone | + + + + + | Stephanie Ross | [place] | [address] | | | | | [place] | | | | | [address] | | + + + + + Care Team Providers + +------+ + | Care Bench Press Operator Name | Role | Phone | + +------+ + | Manuel Dent MD | PCP | | + +------+ + Allergies + + + + + + | Active Allergy | Reactions | Severity | Noted | Comments | | | | | Date | | + + + + + + | Chlorhexidine | Rash | Medium | 06/08/20 | Rash | | | | | 11 | | + + + + + + | Iodides | Hives | High | 05/18/20 | | | | | | 11 | | + + + + + + | Phenothiazines | Other (See Comments) | Medium | 05/18/20 | convultions | | | | | 11 | | + + + + + + Medications + + + +---------+------+------+-------+ | Medication | Sig | Dispensed | Refills | Star | End | Statu | | | | | | t | Date | s | | | | | | Date | | | + + + +---------+------+------+-------+ | TURMERIC CURCUMIN | Take 2,000 tablets | | 0 | 12/1 | | Activ | | PO | by mouth daily. | | | 10/29 | | e | | | | | | 18 | | | + + + +---------+------+------+-------+ | alendronate | Take 70 mg by mouth | | 0 | 12/1 | | Activ | | (FOSAMAX) 70 mg | every 7 days. Take | | | 10/29 | | e | | tablet | in the morning with | | | 18 | | | | | a full glass of | | | | | | | | water, on an empty | | | | | | | | stomach, and do not | | | | | | | | take anything else | | | | | | | | by mouth or lie down | | | | | | | | for the next 30 | | | | | | | | min. | | | | | | + + + +---------+------+------+-------+ | Calcium | Take 1 tablet by | | 0 | 12 | | Activ | | Carb-Cholecalciferol | mouth daily. | | | 20 | | e | | (CALCIUM 600+D) | | | | 18 | | | | 600-800 MG-UNIT TABS | | | | | | | + + + +---------+------+------+-------+ | ADVAIR DISKUS | Inhale 1 puff into | | 0 | 02/0 | | Activ | | 250-50 MCG/DOSE | the lungs 2 (two) | | | 4/20 | | e | | diskus inhaler | times daily. | | | 19 | | | + + + +---------+------+------+-------+ | albuterol 90 | Inhale 2 puffs into | | 0 | 03/1 | | Activ | | mcg/puff inhaler | the lungs every 4 | | | 8/20 | | e | | | (four) hours as | | | 19 | | | | | needed for Wheezing. | | | | | | + + + +---------+------+------+-------+ | aspirin (ASPIRIN | Take 81 mg by mouth | | 0 | 08/0 | | Activ | | LOW DOSE) 81 MG | daily. | | | 9/20 | | e | | tablet | | | | 11 | | | + + + +---------+------+------+-------+ | predniSONE | Take 6 mg by mouth | | 0 | 04/0 | | Activ | | (DELTASONE) 5 mg | daily. | | | 5/20 | | e | | tablet | | | | 19 | | | + + + +---------+------+------+-------+ | acetaminophen | Take 500 mg by mouth | | 0 | | | Activ | | (TYLENOL) 500 mg | every 6 hours as | | | | | e | | tablet | needed for Pain. | | | | | | + + + +---------+------+------+-------+ | pravastatin | Take 1 tablet by | 90 | 3 | 11/0 | 11/0 | Activ | | (PRAVACHOL) 20 mg | mouth nightly. | tablet | | 4/20 | 3/20 | e | | tablet | | | | 19 | 20 | | + + + +---------+------+------+-------+ | metoprolol | TAKE ONE TABLET BY | 90 | 3 | 03/1 | | Activ | | succinate | MOUTH EVERY DAY | tablet | | 6/20 | | e | | (TOPROL-XL) 25 mg 24 | | | | 20 | | | | hr tablet | | | | | | | + + + +---------+------+------+-------+ | losartan (COZAAR) | TAKE ONE TABLET BY | 90 | 3 | 06/0 | | Activ | | 50 mg tablet | MOUTH AT BEDTIME | tablet | | 820 | | e | | | | | | 20 | | | + + + +---------+------+------+-------+ Active Problems + + + | Problem | Noted Date | + + + | Chronic constipation | 08/13/2019 | + + + | Diverticulosis of sigmoid colon | 08/13/2019 | + + + | 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/2019 | + + + | Diastolic CHF, chronic | 05/14/2019 | + + + + + | Overview: 10/23/2018: EF > 70%, moderate diastolic dysfunction | | , grade II | + + + + + | Ascending aorta dilatation | 12/26/2018 | + + + | Rheumatic mitral stenosis | 12/26/2018 | + + + | History of rheumatic fever as a child | 12/26/2018 | + + + | S/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 | 10/10/2005 | + + + + + | Overview: #21 Aravind AVR | + + + +---+ | PMR (polymyalgia rheumatica) | | + +---+ | Essential hypertension | | + +---+ | Mixed hyperlipidemia | | + +---+ | Rheumatic aortic stenosis | | + +---+ + + | Overview: severe , 2006, s/p AVR | + + + +---+ | 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 | | + +---+ Family History + + + + + | Medical History | Relation | Name | Comments | + + + + + | Drug abuse | Brother | Anthony | | + + + + + | Other (see comment) | Brother | Vinny | Skin cancer | + + + + + | Prostate cancer | Brother | | | + + + + + | Lung cancer | Brother | | | + + + + + | Other (see comment) | Brother | | CVA | + + + + + | Prostate cancer | Brother | | | + + + + + | Other (see comment) | Father | | Leukemia | + + + + + | Diabetes | Mother | | | + + + + + | Obesity | Mother | | | + + + + + | Other (see comment) | Mother | | CVA | + + + + + | Breast cancer | Sister | Daksha | | + + + + + | Breast cancer | Sister | Jacqueline | | + + + + + | Endometrial cancer | Sister | Ashley | | + + + + + | Obesity | Son | | | + + + + + | Alcohol abuse | Son | | | + + + + + | Drug abuse | Son | | | + + + + + + + + + + | Relation | Name | Status | Comments | + + + + + | Brother | | | | + + + + + | Brother | | | | + + + + + | Brother | | | | + + + + + | Brother | | | in motorcycle accident | + + + + + | Brother | Beau | Alive | | + + + + + | Brother | Anthony | Alive | | + + + + + | Brother | Vinny | Alive | | + + + + + | Brother | | | | + + + + + | Brother | | | | + + + + + | Brother | | | | + + + + + | Brother | | | | + + + + + | Father | | | | | | | (Age | | | | | 83) | | + + + + + | Mother | | | | | | | (Age | | | | | 82) | | + + + + + | Sister | Daksha | Alive | | + + + + + | Sister | Jacqueline | Alive | | + + + + + | Sister | Sarah | Alive | | + + + + + | Sister | Ashley | Alive | | + + + + + | Sister | | Alive | | + + + + + | Sister | Roseann | | in a MVA | + + + + + | Son | | Alive | | + + + + + | Son | | Alive | | + + + + + | Son | | | | + + + + + | Son | | | | + + + + + | Son | | | | + + + + + | Son | | | | + + + + + Social History + [...] + + + Last Filed Vital Signs + + + [...] + + + | Respiratory Rate | 18 | 05/14/2019 3:00 PM | | | | | PDT | | + + + + + [...] | | + + + + + Plan of Treatment + + + + + | Health Maintenance | Due Date | Last | Comments | | | | Done | | + + + + + | Med Mgmt: Cr | | | | | | 2 | | | + + + + + | Med Mgmt: K | | | | | | 2 | | | + + + + + | Med Mgmt: eGFR | | | | | | 2 | | | + + + + + | Medication | | | | | Management | 2 | | | + + + + + | Vaccine: | | | | | Pneumococcal 65+ (1 | 7 | | | | of 1 - PPSV23) | | | | + + + + + | Adult Annual | | | | | Wellness Visit | 9 | | | + + + + + | Vaccine: Influenza | | 06/25/20 | | | (#1) | 0 | 19, | | | | | 06/05/20 | | | | | 18, | | | | | 07/30/20 | | | | | 17 | | + + + + + | Vaccine: | | 10/21/19 | | | Dtap/Tdap/Td (4 - | 8 | 18, | | | Td) | | 07/04/20 | | | | | 17, | | | | | 03/08/20 | | | | | 07, | | | | | Addition | | | | | al | | | | | history | | | | | exists | | + + + + + | Vaccine: Zoster | Completed | 07/13/20 | | | | | 19, | | | | | 04/17/20 | | | | | 19, | | | | | 08/09/20 | | | | | 08 | | + + + + + Results Not on filefrom Last 3 [...] + +--------+ | MEDICARE | MEDICA | [id number] | 02/07/19 | [phone] | | Medica | | | RE | | 97-Pre | 5 | | re | | | PART A | | sent | | | | | | AND B | | | | | | + +--------+ +--------+ + +--------+ | MEDICARE | MEDICA | [id number] | 02/07/19 | [phone] | | Medica | | | RE | | 97-Pre | 5 | | re | | | PART A | | sent | | | | | | AND B | | | | | | + +--------+ +--------+ + +--------+ | MODA | MODA | [id number] | 10/10/19 | [phone] | [address] | Indemn | | | HEALTH | | 19-Pre | 9 | [address] | ity | | | MDCR | | sent | | [place], | | | | [place] | | | | [place] [address] | | + +--------+ +--------+ + +--------+ [...] | [birth year] | [address] | | [place] | al/Fam | | 1930 | [phone] | [place] | | | [place] | | | [address] (Home) | [address] | + +--------+ +--------+ + + | Yvonne Laguerre | Person | Self | [birth year] | [address] | | [place] | al/Fam | | 1930 | [phone] | [place] | | | [place] | | | [address] (Home) | [address] | + +--------+ +--------+ + + Advance Directives + + + + + | Type | Date Recorded | Patient | Explanation | | | | Gis Geographer | | + + + + + | Power of | | | | | Airplane Gastank Liner Assembler | | | | + + + + + | Advance | | | | | Directive | | | | + + + + +
--- OUTSIDE RECORDS SUMMARY | ~2020-07-28 | XMS | Encounter Summary ---
Demographics + + + | Address | [address] | | | [place] [address] | + + + | Home Phone [...] + | Michael Ross | ECON | [address] | | | | | [place] | | | | | [address] | | + + + + + Care Team Providers + +------+ + | Care Devil Dog Name | Role | Phone | + +------+ + PCP | Unavailable | + +------+ + Encounter Details +--------+ + + + + | Date | Type | Department | Care Team | Description | +--------+ + + + + | 08/20/ | Results | Registration [id number] | | | | 1997 | Only | [address] | | | | | | Keagan Mailcode: [id number] | | | | | | [place], [place] | | | | | | [address] | | | | | | [phone] | | | +--------+ + + + [...] | + + + + + | [facility] | [address] | [place] [address] | | | PATHOLOGY | [address] [...] | + + + + + | [facility] | [address] | [place] [address] | | | PATHOLOGY | [address] [...] | + + + + + | [facility] | [address] | [place] [address] | | | PATHOLOGY | [address] [...] | + + + + + | [facility] | [address] | [place] [address] | | | PATHOLOGY | [address] [...] | + + + + + | [facility] | [address] | [place] [address] | | | PATHOLOGY | [address] [...] | + + + + + | [facility] | [address] | [place] [address] | | | PATHOLOGY | [address] | | | + + + + + documented in this encounter Visit Diagnoses Not on filedocumented in this encounter"
--- OUTSIDE RECORDS SUMMARY | ~2020-07-28 | XMS | Encounter Summary ---
Demographics + + + | Address | [address] | | | [place] [address] | + + + | Home Phone | | + + + | Preferred Language | Unknown | + + + | Marital Status | | + + + | Mu-Ism Affiliation | Unknown | + + + [...] + | Michael Ross | ECON | [address] | | | | | [place] | | | | | [address] | | + + + + + Care Team Providers + +------+ + | Care Multimedia Manager Name | Role | Phone | [...] as of this encounter Progress Notes Interface, Horse Buyer In - 09/29/2006 3:04 AM PSTCLINIC DATE: [...] Grover Rocha MD [id number] Nicholas Fleming MD [id number] signed by Interface, Horse Buyer In at 09/29/2006 3:04 AM PSTdocument ed in this encounter Plan of Treatment Not on filedocumented as of this encounter Visit Diagnoses Not on filedocumented in this encounter"
--- OUTSIDE RECORDS SUMMARY | ~2020-07-28 | XMS | Encounter Summary ---
Demographics + + + | Address | [address] | | | [place] [address] | + + + | Home Phone | | + + + | Preferred Language | Unknown | + + + | Marital Status | | + + + | Restorationism Affiliation | Unknown | + + + | Race | White | + + + | Ethnic Group | Unknown | + + + Author + + + | Author | [facility] | | | and [place] | + + + | Organization | [facility] | | | and [place] | + + + | Address | Unknown | + + + | Phone | Unavailable | + + + Support + + + + + | Name | Relationship | Address | Phone | + + + + + | Stephanie Ross | [place] | [address] | | | | | [place] | | | | | [address] | | + + + + + Care Team Providers + +------+ + | Care Hard Metals Engraver Hand Name | Role | Phone | + +------+ + | Manuel Dent MD | PCP | | + +------+ + Encounter Details +--------+ + + + + | Date | Type | Department | Care Team | Description | +--------+ + + + + | 02/19/ | Orders Only | [facility] GENERIC OP | Conversion | | | 2019 | | CONVERSION DEP [address] | Transaction, | | | | | [address] | Provider Unknown | | | | | [place], [place] | [phone] | | | | | [address] | | | | | | [phone] | | | +--------+ + + + [...]
--- OUTSIDE RECORDS SUMMARY | ~2020-07-28 | XMS | Encounter Summary ---
Demographics + + + | Address | [address] | | | [place] [address] | + + + | Home Phone | | + + + | Preferred Language | Unknown | + + + | Marital Status | | + + + | Methodist Affiliation | Unknown | + + + | Race | White | + + + | Ethnic Group | Unknown | + + + Author + + + | Author | [facility] | | | and [place] | + + + | Organization | [facility] | | | and [place] | + + + | Address | Unknown | + + + | Phone | Unavailable | + + + Support + + + + + | Name | Relationship | Address | Phone | + + + + + | Stephanie Ross | ECON | [address] | | | | | [place] | | | | | [address] | | + + + + + Care Team Providers + +------+ + | Care Exchange Underwriting Consultant Name | Role | Phone | [...] + + | 12/21/ | Refill | [facility] | Anai Jade | Medication Refill | | 2019 | | CARDIOLOGY JUN | [address] | | | | | [address] | [address] | | | | | [address] | [place] [address] | | | | | [place] | [phone] | | | | | [address] | | | | | | [phone] | | | +--------+--------+ + + + [...]
--- OUTSIDE RECORDS SUMMARY | ~2020-07-28 | XMS | Encounter Summary ---
Demographics + + + | Address | [address] | | | [place] [address] | + + + | Home Phone [...] + | Stephanie Ross | ECON | [address] | | | | | [place] | | | | | [address] | | + + + + + Care Team Providers + +------+ + | Care Pleasure Craft Sailor Name | Role | Phone | + [...] | | [address] | [place], [place] | Unspecified | | | | [place], [place] | [address] | essential | | | | [address] | | hypertension; | | | | [phone] | | Esophageal reflux; | | | | | | Coronary | | | | | | atherosclerosis of | | | | | | seneca-cayuga coronary | | | | | | [...] Performed At | + + + | [facility] [address] Ph: | | | Patient Name: JB HERNANDEZ Date of | | | : 1930 Medical Record: [id number] Account: | | | [id number] Exam Date/Time: 05/18/2011 | | | 14:37 [...] - 06/02/2019 2:49 PM PDT | | [facility] | | [facility] [address] | | | | | | Patient Name: EZIO HERNANDEZUERSHEILA Whyte | | Date of : 1930 | | Medical Record: [id number] | | Account: [id number] | | | | | | Exam Date/Time: 05/18/2011 14:37 | | Ordering Physician: DMITRIY DESAI | | Order Detail: [id number] | | Exam Description: XR CHEST 2 VIEW | | | | JB Isabell HERNNADEZ | | XR CHEST 2 VIEW | [...] | + + | Coronary atherosclerosis of seneca-cayuga coronary artery | + + | Other specified surgical operation and procedure causing abnormal patient reaction, or | | later complication, without mention of misadventure at time of operation | + + | Encounter for long-term (current) use of aspirin | + + documented in this encounter"
--- OUTSIDE RECORDS SUMMARY | ~2020-07-28 | XMS | Encounter Summary ---
Demographics + + + | Address | [address] | | | [place] [address] | + + + | Home Phone | | + + + | Preferred Language | Unknown | + + + | Marital Status | | + + + | Methodist Affiliation | Unknown | + + + | Race | White | + + + | Ethnic Group | Not or | + + + Author + + + | Author | [facility] | + + + | Organization | [facility] | + + + | Address | Unknown | + + + | Phone | Unavailable | + + + Support + + + + + | Name | Relationship | Address | Phone | + + + + + | Michael Ross | ECON | [address] | | | | | [place] | | | | | [address] | | + + + + + Care Team Providers + +------+ + | Care Bundler Name | Role | Phone | + +------+ + PCP | Unavailable | + +------+ + Encounter Details +--------+ + + + + | Date | Type | Department | Care Team | Description | +--------+ + + + + | 08/31/ | Procedure - | Digestive Health | Record, Operation | Operative Report | | 1994 | | Center at [facility] [address] | | | | | Transcribed | [facility] | | | | | | for Health and | | | | | | Healing, Building [address] | | | | | | [place], [place] | | | | | | [address] | | | | | | [phone] | | | +--------+ + + + [...] 08/31/1995 12:00 AM PSTAssociated Order(s): OPERATION RECORD [place] [address] [place], [place] [address] [facility] OPERATION RECORD Med Rec No.: [id number] Date: 08/31/95 Name: Yvonne Laguerre ATTENDING SURGEON: Mukund Del Rosario M.D. Galley Stripper, General electron beam welding machine operator(S): Coty Miller M.D. Resident, General Surgery POSTOPERATIVE [...] Resident, General Surgery Mukund Del Rosario M.D. Galley Stripper, General Surgery HOAHAOISM/charlie P cc: documented in this encou nter [...] encounter Results OPERATION RECORD (08/31/1995 12:00 AM [facility]) + + | Procedure Note | + + | 08/31/1995 12:00 AM [facility] | | [facility] | | [address] [place] [phone] | | [facility] | | | | OPERATION RECORD | | | | Med Rec No.: [id number] Date: 08/31/95 | | | | Name: Yvonne Laguerre | | | | | | ATTENDING SURGEON: Mukund Del Rosario M.D. | | Galley Stripper, General Surgery | | | | BODY DESIGNER(S): Coty Miller M.D. | | Resident, General [...] | Mukund Del Rosario M.D. | | Galley Stripper, General Surgery | | HOAHAOISM/therese | | | | P | | | | cc: | | | + + documented in this encounter Visit Diagnoses Not on filedocumented in this encounter"
--- OUTSIDE RECORDS SUMMARY | ~2020-07-28 | XMS | Encounter Summary ---
Demographics + + + | Address | [address] | | | [place] [address] | + + + | Home Phone | | + + + | Preferred Language | Unknown | + + + | Marital Status | | + + + | Mormon Affiliation | Unknown | + + + [...] + | Michael Ross | ECON | [address] | | | | | [place] | | | | | [address] | | + + + + + Care Team Providers + +------+ + | Care Pan Pusher Name | Role | Phone | + [...] Clinic | | | | | | [facility], [address] | | | | | | [place], [place] | | | | | | [address] | | | | | | [phone] | | | +--------+ + + + [...] as of this encounter Progress Notes Interface, Drafter Heating And Ventilating In - 11/25/2006 5:10 AM [facility] CLINIC DATE: 07/02/97 CHIEF COMPLAINT: Pain [...] in [address] here at [facility]. MEDICATIONS:Medications include iron. ALLERGIES:Iodine and Promethazine or [...]
--- OUTSIDE RECORDS SUMMARY | ~2020-07-28 | XMS | Encounter Summary ---
Demographics + + + | Address | [address] | | | [place] [address] | + + + | Home Phone [...] + | Stephanie Ross | [place] | [address] | | | | | [place] | | | | | [address] | | + + + + + Care Team Providers + +------+ + | Care Data Acquisition Technician Name | Role | Phone | [...] | | | [address] | [place] [address] | | | | | [place] [address] | | | | | | [phone] | | | +--------+ + + + [...]
--- OUTSIDE RECORDS SUMMARY | ~2020-07-28 | XMS | Encounter Summary ---
Demographics + + + | Address | [address] | | | [place] [address] | + + + | Home Phone | | + + + | Preferred Language | Unknown | + + + | Marital Status | | + + + | Yazidi Affiliation | Unknown | + + + | Race | White | + + + | Ethnic Group | Unknown | + + + Author + + + | Author | [facility] | | | and [place] | + + + | Organization | [facility] | | | and [place] | + + + | Address | Unknown | + + + | Phone | Unavailable | + + + Support + + + + + | Name | Relationship | Address | Phone | + + + + + | Stephanie Ross | [place] | [address] | | | | | [place] | | | | | [address] | | + + + + + Care Team Providers + +------+ + | Care Hvac Technician Name | Role | Phone | + +------+ + | Manuel Dent MD | PCP | | + +------+ + Encounter Details +--------+ + + + + | Date | Type | Department | Care Team | Description | +--------+ + + + + | 05/18/ | Orders Only | [facility] | Dmitriy Desai MD | | | 2010 | | [facility] | [address] | | | | | CLINICAL LABORATORY | [place], [place] | | | | | [address] | [id number] | | | | | [place], [place] | | | | | | [address] | | | | | | [phone] | | | +--------+ + + + [...] EXTERNAL LAB | | Testing performed at [facility];[address] [place] [address];[place] [address] MRSA PCR | | | NEGATIVE Testing performed at | | | [address];[place] [address] | | + + + + +---------+ [...] EXTERNAL LAB | | Testing performed at [facility];[address] [place] [address];[place] [address] MRSA PCR | | | NEGATIVE Testing performed at | | | [address];[place] [address] | | + + + + +---------+ + + | Performing | Address | City/State/Zipcode | Phone Number | | Organization | | | | + +---------+ + + | EXTERNAL LAB | | | | + +---------+ + + documented in this encounter Visit Diagnoses Not on filedocumented in this encounter"
--- OUTSIDE RECORDS SUMMARY | ~2020-07-28 | XMS | Encounter Summary ---
Demographics + + + | Address | [address] | | | [place] [address] | + + + | Home Phone [...] + | Stephanie Ross | [place] | [address] | | | | | [place] | | | | | [address] | | + + + + + Care Team Providers + +------+ + | Care Segment Assembler Name | Role | Phone | + +------+ + | Manuel Dent MD | PCP | | + +------+ + Encounter Details +--------+ + + + + | Date | Type | Department | Care Team | Description | +--------+ + + + + | 05/18/ | Orders Only | [facility] GENER[facility] OP | Conversion | | | 2010 | | CONVERSION DEP [address] | Transaction, | | | | | [address] | Provider Unknown | | | | | [place], [place] | [phone] | | | | | [address] | | | | | | [phone] | | | +--------+ + + + [...]
--- OUTSIDE RECORDS SUMMARY | ~2020-07-28 | XMS | Encounter Summary ---
Demographics + + + | Address | [address] | | | [place] [address] | + + + | Home Phone | | + + + | Preferred Language | Unknown | + + + | Marital Status | | + + + | Hoahaoism Affiliation | Unknown | + + + | Race | White | + + + | Ethnic Group | Unknown | + + + Author + + + | Author | [facility] | | | and [place] | + + + | Organization | [facility] | | | and [place] | + + + | Address | Unknown | + + + | Phone | Unavailable | + + + Support + + + + + | Name | Relationship | Address | Phone | + + + + + | Stephanie Ross | [place] | [address] | | | | | [place] | | | | | [address] | | + + + + + Care Team Providers + +------+ + | Care Editorial Manager Name | Role | Phone | [...] Provider Unknown | | | | | [place], [place] | [phone] | | | | | [address] | | | | | | [phone] | | | +--------+ + + + [...]
--- OUTSIDE RECORDS SUMMARY | ~2020-07-28 | XMS | Encounter Summary ---
Demographics + + + | Address | [address] | | | [place] [address] | + + + | Home Phone | | + + + | Preferred Language | Unknown | + + + | Marital Status | | + + + | Congregational Affiliation | Unknown | + + + | Race | White | + + + | Ethnic Group | Unknown | + + + Author + + + | Author | [facility] | | | and [place] | + + + | Organization | [facility] | | | and [place] | + + + | Address | Unknown | + + + | Phone | Unavailable | + + + Support + + + + + | Name | Relationship | Address | Phone | + + + + + | Stephanie Ross | [place] | [address] | | | | | [place] | | | | | [address] | | + + + + + Care Team Providers + +------+ + | Care Refractory Mixer Name | Role | Phone | + [...] Provider Unknown | | | | | [place], [place] | [phone] | | | | | [address] | | | | | | [phone] | | | +--------+ + + + [...]
--- OUTSIDE RECORDS SUMMARY | ~2020-07-28 | XMS | Encounter Summary ---
Demographics + + + | Address | [address] | | | [place] [address] | + + + | Home Phone | | + + + | Preferred Language | Unknown | + + + | Marital Status | | + + + | Presybeterian Affiliation | Unknown | + + + | Race | White | + + + | Ethnic Group | Not or | + + + Author + + + | Author | [facility] | + + + | Organization | [facility] | + + + | Address | Unknown | + + + | Phone | Unavailable | + + + Support + + + + + | Name | Relationship | Address | Phone | + + + + + | Michael Ross | ECON | [address] | | | | | [place] | | | | | [address] | | + + + + + Care Team Providers + +------+ + | Care Customer Contact Representative Name | Role | Phone | + [...] as of this encounter Progress Notes Interface, Product Development Technician In - 10/01/2006 5:11 AM PSTCLINIC DATE: [...] Maddy C: 01/23/1999 fatoumata cc: BEHZAD FIN[facility] SURGERY documented in this encounter Plan of Treatment Not on filedocumented as of this encounter Visit Diagnoses Not on filedocumented in this encounter"
--- OUTSIDE RECORDS SUMMARY | ~2020-07-28 | XMS | Encounter Summary ---
Demographics + + + | Address | [address] | | | [place] [address] | + + + | Home Phone | | + + + | Preferred Language | Unknown | + + + | Marital Status | | + + + | Alevism Affiliation | Unknown | + + + [...] + | Michael Ross | ECON | [address] | | | | | [place] | | | | | [address] | | + + + + + Care Team Providers + +------+ + | Care Dock Builder Name | Role | Phone | + +------+ + PCP | Unavailable | + +------+ + Encounter Details +--------+ + + + + | Date | Type | Department | Care Team | Description | +--------+ + + + + | 10/16/ | Results | General Surgery | Mukund Del Rosario, | | | 1998 | Only | [address] | [address] | | | | | Loop Mailcode: | [address] | | | | | [address] Physician's | [place], [place] | | | | | [address] | [address] | | | | | [place], [place] | [phone] | | | | | [address] | | | | | | [phone] | | | +--------+ + + + [...] + +--------+ + + + | X-RAY CHEST 2 VIEW | Priori | 10/16/1998 | | Results for this | | | ty | 3:25 PM | | procedure are in the | | | | PST | | results section. | + +--------+ + + + documented in this encounter Results CHEST 2 VIEW (10/16/1998 3:25 PM PST) + + + + + + | Component | Value | Ref Range | Performed | Pathologist | | | | | At | Signature | + + + + + + | CHEST, 2 | Radiologist 1: | | | | | VIEWS [place] | GARRETT MAX, | | | | | STEREO | M.D.PA AND LATERAL VIEWS | | | | | | OF THE CHEST: 10/16/98 | | | | | | at 1525 hours. | | | | | | Dictated 10/16/98 | | | | | | COMPARISON: There are no | | | | | | prior studies available | | | | | | for comparison. | | | | | | FINDINGS: The lungs are | | | | | | clear. The | | | | | | cardiomediastinal | | | | | | silhouette,butch, | | | | | | pulmonary vasculature | | | | | | and pleura are normal. | | | | | | IMPRESSION: Normal chest | | | | | | radiograph. END OF | | | | | | IMPRESSION: | | | | | | | [...]
--- OUTSIDE RECORDS SUMMARY | ~2020-07-28 | XMS | Encounter Summary ---
Demographics + + + | Address | [address] | | | [place] [address] | + + + | Home Phone [...] + | Stephanie Ross | [place] | [address] | | | | | [place] | | | | | [address] | | + + + + + Care Team Providers + +------+ + | Care Supervisor Buffing And Pasting Name | Role | Phone | + [...] | | | [address] | [place] [address] | | | | | [place] [address] | | | | | | [phone] | | | +--------+ + + + [...]
--- OUTSIDE RECORDS SUMMARY | ~2020-07-28 | XMS | Encounter Summary ---
Demographics + + + | Address | [address] | | | [place] [address] | + + + | Home Phone | | + + + | Preferred Language | Unknown | + + + | Marital Status | | + + + | Sikhism Affiliation | Unknown | + + + | Race | White | + + + | Ethnic Group | Not or | + + + Author + + + | Author | [facility] | + + + | Organization | [facility] | + + + | Address | Unknown | + + + | Phone | Unavailable | + + + Support + + + + + | Name | Relationship | Address | Phone | + + + + + | Michael Rsos | ECON | [address] | | | | | [place] | | | | | [address] | | + + + + + Care Team Providers + +------+ + | Care Buckle Inspector Name | Role | Phone | [...] | | | | [address] | [place], [place] | | | | | [address] | [address] | | | | | [place], [place] | [phone] | | | | | [address] | | | | | | [phone] | | | +--------+ + + + [...]
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
--- OUTSIDE RECORDS SUMMARY | ~2020-07-28 | XMS | Encounter Summary ---
Demographics + + + | Address | [address] | | | [place] [address] | + + + | Home Phone [...] + | Michael Ross | [place] | [address] | | | | | [place] | | | | | [address] | | + + + + + Care Team Providers + +------+ + | Care Company Manager Name | Role | Phone | [...] [address] | | | | | | [place] [address] | | | | | | [phone] | | | | | | | [...]
--- OUTSIDE RECORDS SUMMARY | ~2020-07-28 | XMS | Clinical Summary ---
Demographics + + + | Address | [address] | | | [place] [address] | + + + | Home Phone | | + + + | Preferred Language | Unknown | + + + | Marital Status | | + + + | Baptist Affiliation | Unknown | + + + | Race | White | + + + | Ethnic Group | Unknown | + + + Author + + + | Author | [facility] | | | and [place] | + + + | Organization | [facility] | | | and [place] | + + + | Address | Unknown | + + + | Phone | Unavailable | + + + Support + + + + + | Name | Relationship | Address | Phone | + + + + + | Stephanie Ross | ECON | [address] | | | | | [place] | | | | | [address] | | + + + + + Care Team Providers + +------+ + | Care Kitchenhand Name | Role | Phone | + [...] + +--------+ | MEDICARE | MEDICA | [id number] | 02/07/19 | [phone] | | Medica | | | RE | | 97-Pre | 5 | | re | | | PART A | | sent | | | | | | AND B | | | | | | + +--------+ +--------+ + +--------+ | MEDICARE | MEDICA | [id number] | 02/07/19 | [phone] | | Medica | | | RE | | 97-Pre | 5 | | re | | | PART A | | sent | | | | | | AND B | | | | | | + +--------+ +--------+ + +--------+ | MODA | MODA | [id number] | 10/10/19 | [phone] | [address] | Indemn | | | HEALTH | | 19-Pre | 9 | [address] | ity | | | MDCR | | sent | | [place], | | | | [place] | | | | [place] [address] | | + +--------+ +--------+ + +--------+ [...] luis | | | 7 (Home) | [address] | + +--------+ +--------+ + + | Yvonne Laguerre | Person | Self | [birth year] | [address] | | [place] | al/Fam | | 1930 | [phone] | [place] | | | [place]uis | | | 7 (Home) | [address] | + +--------+ +--------+ + + Advance Directives + + + + + | Type | Date Recorded | Patient | Explanation | | | | Marketing Designer | | + + + + + | Power of | | | | | Correctional Officer Captain | | | | + + + + + | Advance | | | | | Directive | | | | + + + + +
--- OUTSIDE RECORDS SUMMARY | ~2020-07-28 | XMS | Encounter Summary ---
Demographics + + + | Address | [address] | | | [place] [address] | + + + | Home Phone | | + + + | Preferred Language | Unknown | + + + | Marital Status | | + + + | Anglican Affiliation | Unknown | + + + [...] + | Michael Ross | ECON | [address] | | | | | [place] | | | | | [address] | | + + + + + Care Team Providers + +------+ + | Care Linotype Machinist Name | Role | Phone | + [...] as of this encounter Progress Notes Interface, Compressor Operator In - 10/04/2006 3:10 AM PSTCLINIC DATE: [...]
--- OUTSIDE RECORDS SUMMARY | ~2020-07-28 | XMS | Clinical Summary ---
Demographics + + + | Address | [address] | | | [place] [address] | + + + | Home Phone | | + + + | Preferred Language | Unknown | + + + | Marital Status | | + + + | Oriental Orthodox Affiliation | Unknown | + + + | Race | White | + + + | Ethnic Group | Not or | + + + Author + + + | Author | [facility] | + + + | Organization | [facility] | + + + | Address | Unknown | + + + | Phone | Unavailable | + + + Support + + + + + | Name | Relationship | Address | Phone | + + + + + | Michael Ross | [place] | [address] | | | | | [place] | | | | | [address] | | + + + + + Care Team Providers + +------+ + | Care Fire Marshal Refinery Name | Role | Phone | + +------+ + PCP | Unavailable | + +------+ + Source Comments [facility] is fully live on both [facility] Ambulatory and [facility] InPatient.[facility] Allergies + + + + + [...] + +--------+ | MEDICARE | MEDICA | [id number] | Effect | [phone] | [address] | Medica | | | RE A & | | [place] | [phone] | re | | | B | | for | | [place], [place] | | | | | | all | | [phone] | | | | | | dates | | | | + +--------+ +--------+ + +--------+ | MODA MEDICARE | MODA | [id number] | Effect | [phone] | [address] | POS | | SUPPLEMENT | MEDICA | | [place] | 4 | [phone] | | | | RE | | for | | [place], | | | | SUPPLE | | all | | [place] [address] | | | | MENT | | [...] | | al/Fam | | 1930 | [phone] | [place] [address] | | | luis | | | 3 (Home) | | + +--------+ +--------+ + +"
[~2020-07-28 12:32] MED LIST changes: +TYLENOL325 MG PO
[2020-07-28] MEDS ORDERED: PRAVACHOL20 MG PO (16:54)
[2020-07-28] MEDS ORDERED: COZAAR50 MG PO (16:54)
[2020-07-28] MEDS ORDERED: PREDNISONE5 MG PO (16:55)
[2020-07-28] MEDS ORDERED: ACID REDUCER20 MG PO (16:55)
[2020-07-28] MEDS ORDERED: LO-DOSE ASPIRIN81 MG PO (16:56)
[2020-07-28] MEDS ORDERED: IRON325 M1 PO (16:57)
[2020-07-28] MEDS ORDERED: CALCIUM 1,0001 EACH PO (16:57)
[2020-07-28] MEDS ORDERED: VITAMIN C500 M5 PO (16:57)
[2020-07-28] MEDS ORDERED: TURMERIC COMPL1 EACH PO (16:59)
[2020-07-28] MEDS ORDERED: FOSAMAX70 MG PO (17:00)
--- NOTE | 2020-07-28 18:20 | NUR ---
REPORT RECEIVED FROM ARA ARANA IN ED.
--- NOTE | 2020-07-28 18:57 | NUR ---
PT ARRIVED TO FLOOR VIA STRETCHER. TRANSFER TO BED WITH STAND BY ASSIST. PT DENEIS PAIN OR SOB. VITALS TAKEN AND STABLE. TELE PLACED. WAITING FOR MEDS TO BE VERIFIED. REPORT GIVEN TO INTERNET SALES CONSULTANT NURSE.
--- NOTE | 2020-07-28 19:32 | NUR ---
REPORT RECEIVED FROM DAY SHIFT RN. PT LYING IN BED ALERT AND ORIENTED. FAMILY AT BEDSIDE. PT DENIES PAIN OR NAUSEA. TELE #3 SINUS SHANELL. HR 50'S. DENIES NEEDS AT THIS TIME. WHITE BOARD UPDATED. CALL LIGHT IN REACH.
--- NOTE | 2020-07-28 19:52 | NUR ---
CHICKEN NOODLE SOUP PROVIDED BY PIGMENT PRESSER. PT SITTING UP IN BED EATING. NO COUGHING OR SWALLOWING ISSUES NOTED. SCHEDULED MED ADMINISTERED WITH WATER, NO ISSUES NOTED. NO WEAKNESS OR DEFECITS NOTED IN BUE.
--- NOTE | 2020-07-28 21:45 | NUR ---
EVENING ASSESSMENT COMPLETE. SCHEDULED MEDS ADMINISTERED PER EMAR. NO COUGHING OR SWALLOWING ISSUES NOTED. PT ABLE TO EAT A REGULAR DINNER WITH NO ISSUES. NIH STROKE SCALE COMPLETE. NO DEFICITS NOTED. PT REPORTS CHRONIC VISUAL DISTURBANCES THAT WERE WORSE BEFORE ADMISSION BUT HAVE NOW "GOTTEN BETTER". SBA TO BR TO VOID 500 ML CLEAR YELLOW URINE. GAIT UNSTEADY AT TIMES. BACK TO BED, FRANCESCO WELL. DENIES PAIN OR NAUSEA. PT ORIENTED TO NURSE CALL LIGHT AND INSTRUCTED TO ASK FOR ASSISTANCE WITH AMBULATION, PT VERBALIZES AGREEMENT. DENIES QUESTIONS OR CONCERNS. FAMILY REMAINS IN ROOM. CALL LIGHT IN REACH. QUESTIONS OR CONCERNS.
--- NOTE | 2020-07-28 23:47 | NUR ---
PT LYING IN BED RESTING WITH EYES CLOSED, NAD. TELE #3 SR. HR 60'S.
--- NOTE | 2020-07-29 02:20 | NUR ---
ASSESSMENT COMPLETE. NEURO CHECK WNL. VSS. I&O COMPLETE. SBA TO BR TO VOID 250 ML. BACK TO BED. GAIT STEADY. FRANCESCO WELL. TELE #3 SR. HR 70'S. DENIES NEEDS. CALL LIGHT IN REACH.
--- NOTE | 2020-07-29 06:00 | NUR ---
PT SLEPT WELL. ALERT AND ORIENTED. USES CALL LIGHT. NEURO CHECKS WNL. PT REPORTS DIZZINESS WHEN FIRST STANDING THAT "ALWAYS HAPPENS AT NIGHT". SBA. GAIT WEAK AND UNSTEADY AT TIMES. PT REPORTS WEAKNESS IS CHRONIC AND HAD BEEN WORKING WITH PT PRIOR TO ADMISSION. VOID QS. VSS. TELE #3. SR. PT/OT/ST CONSULT.
--- NOTE | 2020-07-29 06:35 | NUR ---
VS AND I&O COMPLETE. 1PA TO BR TO VOID 300 ML CLEAR YELLOW URINE. BACK TO BED, FRANCESCO WELL. DENIES PAIN OR NAUSEA. NEURO CHECK WNL. NO FURTHER NEEDS. CALL LIGHT IN REACH.
--- NOTE | 2020-07-29 07:30 | NUR ---
PATIENT SITTING UP IN CHAIR. WHITE BOARD UPDATED. PATIENT'S HANDS AND FACE WASHED. CALL LIGHT WITHIN REACH. NO OTHER NEEDS AT THIS TIME
--- NOTE | 2020-07-29 07:51 | NUR ---
this rn received report from ramu haskins. pt sitting up in bed with call light within reach, pt is knitting and has no concerns or needs at this time.
--- NOTE | 2020-07-29 09:30 | NUR ---
Spoke with Yvonne and her daughter, Stephanie. Pt lives alone in a 2 story home, which has rentals. Son and daughter assist her and son stays with her usually 2 nights per week as he lives in [place]. Pt states she is capable of completing house hold chores, she gardens, and drives. Due to covid, children grocery shop for her. Pt fell while out to lunch with her knitting club. Plans on dc to home.
--- NOTE | 2020-07-29 09:40 | NUR ---
this rn in pts room to give morning meds. estefani from occupational therapy in room at this time. pt states that she has no concerns at this time.
--- NOTE | 2020-07-29 10:13 | EKG ---
[facility] [address] [facility] [place] [address] Signed Normal sinus rhythm Incomplete right bundle branch block Cannot rule out Anterior infarct , age undetermined Abnormal ECG No previous ECGs available Confirmed by PETR GONZALEZ MD ([id number]) on 07/29/2020 10:13:29 AM Electronically Signed By: PETR GONZALEZ MD 07/29/20 1013 PATIENT NAME: EZIO HERNANDEZMINE ESPARZAE Electrocardiogram DATE OF : 34 PHYSICIAN: PETR GONZALEZ MD REPORT #: [id number] REPORT IS CONFIDENTIAL AND NOT TO BE RELEASED WITHOUT AUTHORIZATION
[2020-07-29] MEDS ORDERED: VENTOLIN HFA18 GM INH (11:22)
[2020-07-29] MEDS ORDERED: CLOPIDOGREL75 MG PO (11:26)
[2020-07-29] MEDS ORDERED: LIPITOR40 MG PO (11:26)
--- NOTE | 2020-07-29 11:32 | NUR ---
MED REC COMPLETE
--- NOTE | 2020-07-29 11:41 | NUR ---
CALL LIGHT ANSWERED. PATIENT RESTING IN BED. VISITOR, STUDENT RN AND RN IN ROOM. PATIENT USES THE BATHROOM. ONE PERSON ASSISTING. PATIENT BACKS TO BED. THE FINAL VITAL SIGNS WERE OBTAINED PRIOR TO DISCHARGE FROM THE UNIT
--- NOTE | 2020-07-29 11:46 | NUR ---
PT READY FOR DISCHARGE, THIS RN TO ROOM TO ASSIST WITH VITALS AND GETTING DRESSED. IV DC'D PER PROTOCOL, CATHETER INTACT, WNL. GAUZE AND COBAN APPLIED. PT DRESSED WITH ONE PERSON ASSIST. VITALS TAKEN. PHARMACIST TO BEDSIDE TO REVIEW DISCHARGE MEDICATIONS. PTS RN UPDATED.NO ADDITIONAL REQUESTS OR COMPLAINTS AT THIS TIME. CALL LIGHT WITHIN REACH.
--- NOTE | 2020-07-29 20:59 | PATH ---
[facility] [address] [facility] [facility] [place], [place] [address] Signed ORDERING PHYSICIAN: Damaso Eubanks MD PATIENT NAME: JB HERNANDEZ GENDER: F : 1930 Prior History: No cases found. SPECIMEN(S): MOLECULAR PATHOLOGY RESULTS: SARS-CoV-2 Not Detected ADDITIONAL NOTES.: The [place] Fusion SARS-CoV-2 Assay is a multiplex real-time PCR (RT-PCR) in vitro diagnostic test intended for the qualitative detection of RNA from SARS-CoV-2 from individuals who meet COVID-19 clinical and/or epidemiological criteria. In general, SARS-CoV-2 RNA can be detected during the acute phase of infection. Positive results indicate the presence of SARS-CoV-2 RNA. Clinical correlation with patient history and other diagnostic information is necessary to determine patient infection status. Positive results do not rule out bacterial infection or co-infection with other viruses. Negative results do not preclude SARS-CoV-2 infection and should not be used as the sole basis for patient management decisions. Negative results must be combined with other clinical observations, patient history, and epidemiological information. The [place] Fusion SARS-CoV-2 Assay is not yet approved or cleared by the [place] FDA. When there are no FDA-approved or cleared tests available, and other criteria are met, FDA can make tests available under an emergency access mechanism called an Emergency Use Authorization (EUA). The EUA for this test is supported by the Eye Physician of Health and Human Service's (HHS's) declaration that circumstances exist to justify the emergency use of in vitro diagnostics for the detection and/or diagnosis of the virus that causes COVID-19. This EUA will remain in effect for the duration of the COVID-19 declaration justifying emergency of IVDs, unless it is terminated or revoked by FDA, after which the test may no longer be used. The [place] Fusion SARS-CoV-2 Assay is for use only under EUA PATIENT NAME: JB HERNANDEZ PATHOLOGY DATE OF : 34 REPORT #: [id number] PHYSICIAN: DARIUS MAYERS PCP: SHERIF REID MD REPORT IS CONFIDENTIAL AND NOT TO BE RELEASED WITHOUT AUTHORIZATION [facility] [address] [place] [id number] Signed in laboratories certified under the Clinical Laboratory Improvement Amendments of 1988 (CLIA) to perform high complexity tests. [facility] is certified under CLIA to perform high complexity clinical laboratory testing. PERFORMING LABORATORY.: Molecular testing was performed by [facility] [place] [address] (Transition Teacher: Chris Israel D.O.; CLIA#: [id number]) Diagnostician: System Interface Pathologist Electronically Signed 07/29/2020 Copies: ~ PATIENT NAME: JB HERNANDEZ BAUDILIO PATHOLOGY DATE OF : 34 REPORT #: [id number] PHYSICIAN: DARIUS MAYERS PCP: SHERIF REID MD REPORT IS CONFIDENTIAL AND NOT TO BE RELEASED WITHOUT AUTHORIZATION
== END 2020-07-29 12:07 | disposition home or self-care (01) | DRG 66 ==
LOC: ED 12:32 → MS 18:07
PROVIDERS: ADMIT Internal Medicine; ATTEND Internal Medicine
DX: I63.9 Cerebral infarction, unspecified (principal); Z20.828 Contact with and (suspected) exposure to other viral communicable diseases; H53.462 Homonymous bilateral field defects, left side; R26.89 Other abnormalities of gait and mobility; I10 Essential (primary) hypertension; I65.23 Occlusion and stenosis of bilateral carotid arteries; M54.12 Radiculopathy, cervical region; K21.9 Gastro-esophageal reflux disease without esophagitis; E78.5 Hyperlipidemia, unspecified; R29.700 NIHSS score 0; M35.3 Polymyalgia rheumatica; M81.0 Age-related osteoporosis without current pathological fracture; Z88.8 Allergy status to other drugs, medicaments and biological substances; Z95.3 Presence of xenogenic heart valve; Z79.1 Long term (current) use of non-steroidal anti-inflammatories (NSAID); Z79.82 Long term (current) use of aspirin; Z79.83 Long term (current) use of bisphosphonates; Z79.899 Other long term (current) drug therapy; Z86.19 Personal history of other infectious and parasitic diseases
CPT/HCPCS: 70450; 70460; 70470; 80053; 80061; 83036; 84484; 85025; 93005; 93010; 93306; 93880; 96105; 96361; 97162; 97165; 99285-25; C9803; J1200; J1650; J2765; J7030; J7512; Q9967

== ENCOUNTER 2020-10-19 14:04 | Emergency (ER) | payer MEDICARE, OTHER ==
[~2020-10-19] VITALS: Ht 154.9 cm; Wt 60.8 kg
[~2020-10-19 14:04] MED LIST changes: +ACID REDUCER20 MG PO; +CALCIUM 1,0001 EACH PO; +CLOPIDOGREL75 MG PO; +COZAAR50 MG PO; +FOSAMAX70 MG PO; +IRON325 M1 PO; +LIPITOR40 MG PO; +LO-DOSE ASPIRIN81 MG PO; +PRAVACHOL20 MG PO; +PREDNISONE5 MG PO; +TURMERIC COMPL1 EACH PO; +VENTOLIN HFA18 GM INH; +VITAMIN C500 M5 PO
== END 2020-10-19 20:35 | disposition home or self-care (01) ==
LOC: ED 14:04
DX: U07.1 COVID-19 (principal); J40 Bronchitis, not specified as acute or chronic; I10 Essential (primary) hypertension; Z88.8 Allergy status to other drugs, medicaments and biological substances; Z91.041 Radiographic dye allergy status; Z79.899 Other long term (current) drug therapy; Z79.02 Long term (current) use of antithrombotics/antiplatelets
CPT/HCPCS: 71045; 80053; 85025; C9803; J2405; J7040; J7050; U0003

== ENCOUNTER 2020-12-19 11:02 | Emergency (ER) | payer MEDICARE, OTHER ==
[~2020-12-19] VITALS: Ht 160 cm; Wt 61.2 kg
[2020-12-19] MEDS ORDERED: ONDANSETRON ODT8 MG PO (16:39)
[2020-12-19] MEDS ORDERED: MECLIZINE HCL12.5 MG PO (16:39)
--- NOTE | 2020-12-20 19:04 | EKG ---
[facility] [address] [facility] [place] [address] Signed Normal sinus rhythm Left axis deviation RSR' or QR pattern in V1 suggests right ventricular conduction delay Possible Anterior infarct , age undetermined Abnormal ECG When compared with ECG of 19-DEC-2020 11:11, (Unconfirmed) RSR' pattern in V1 is now present Confirmed by JULIANA JEFFREY DO ([id number]) on 12/20/2020 7:04:42 PM Electronically Signed By: JULIANA JEFFREY DO 12/20/20 1904 PATIENT NAME: JB HERNANDEZ Electrocardiogram DATE OF : 34 PHYSICIAN: JULIANA JEFFREY DO REPORT #: [id number] REPORT IS CONFIDENTIAL AND NOT TO BE RELEASED WITHOUT AUTHORIZATION
== END 2020-12-19 17:16 | disposition home or self-care (01) ==
LOC: ED 11:02
DX: R42 Dizziness and giddiness (principal); R51.9 Headache, unspecified; I10 Essential (primary) hypertension; Z86.73 Personal history of transient ischemic attack (TIA), and cerebral infarction without residual deficits; Z88.8 Allergy status to other drugs, medicaments and biological substances; Z79.899 Other long term (current) drug therapy; Z79.52 Long term (current) use of systemic steroids
CPT/HCPCS: 70450; 70551; 80053; 84484; 85025; 93005; 93010; 96374; 96376; 99284-25; J2405